=== PATIENT | female | born 1945 ===

== ENCOUNTER 2024-11-04 13:45 | Outpatient (REF) | payer MEDICARE, SELFPAY ==
--- NOTE | ~2024-11-04 | XR_ITS ---
EXAMINATION: X-ray lumbar spine 4 views. CLINICAL INFORMATION: Other secondary scoliosis. TECHNIQUE: 4 views lumbar spine. COMPARISON: None FINDINGS: Dextroconvex rotoscoliosis apex at L2-3. Multilevel marginal osteophyte formation and endplate sclerosis and decreased intervertebral disc height more conspicuous at L2-3 and to a lesser extent L3-4 level. 3 mm. Retrolisthesis L2-3 which persists during flexion and extension position. Vascular desiccation's. Stents at the region of the iliac arteries. XR/XR lumbar spine 4V min IMPRESSION: Multilevel lumbar spondylosis and dextroconvex rotoscoliosis more conspicuous at L2-3 and to a lesser extent L3-4 with grade 1 retrolisthesis L2-3 and no gross instability. Electronically signed by: Johnson Quesada MD 11/04/2024 03:16 PM EDT
--- OUTSIDE RECORDS SUMMARY | 2024-11-04 15:04 | XMS_ITS | Encounter Summary ---
Author Organization [facility] Address [address] [place] [address] Care Team Providers Care Music Agent Name Role Phone Kavita Farias MD Primary Care Provider [phone] Padmini Mariee MD Unavailable [phone] Petty Tavarez MD Unavailable [phone] Yvonne Estrella MD Unavailable [phone] Darlene Rivera Unavailable [phone] Petty Tavarez MD Unavailable [phone] Nehal Snowden PA-C Unavailable [phone] John Clark MD Unavailable [phone] Petty Tavarez MD Unavailable [phone] Reason for Visit * Reason Comments Medication Refill Encounter Details Date Type Department Care Team (Late st Contact Info) Description 08/09/2020 Refill [facility] [address] [place] [address] Yvonne Estrella MD [address] [place] [address] Chronic idiopathic constipation Social History Tobacco Use [...] Info) Description 05/16/2025 1:15 PM EDT Appointment [facility] Department of Ophthalmology [place] [address] [place] [address] 05/16/2025 1:15 PM EDT Appointment [facility] Department of Ophthalmology [place] [address] [place] [address] Arvin García [place] [address] [place] [address] documented as of this encounter Visit Diagnoses Diagnosis Chronic idiopathic constipation Unspecified constipation documented in this encounter Care Teams Music Agent Relationship Specialty Start Date End Date Kavita Farias MD [address] [place] [address] PCP - General 06/23/13 Nehal Snowden, PA-C [address] [address] PCP - [employer] Medicare Attributed 10/18/22 01/16/23 Padmini Mariee MD [address] [place] [address] Referring Provider Rheumatology 03/02/18 Petty Tavarez MD [address] [address] Surgery, Vascular 05/08/20 Yvonne Estrella MD [address] [place] [address] Physician Surgery, Colorectal 05/16/20 Darlene Rievra PA [address] [place] [address] 05/16/20 Petty Tavarez MD [address] [place] [address] Surgery, Vascular 05/16/20 05/28/21 John Clark MD [address] [place] [address] Resident Endocrinology 02/17/24 Petty Tavarez MD [address] [place] [address] Surgery, Vascular 02/17/24 documented as of this encounter
--- OUTSIDE RECORDS SUMMARY | 2024-11-04 15:05 | XMS_ITS | Encounter Summary ---
Author Organization [facility] Address [address] [place] [address] Care Team Providers Care Healthcare Educator Name Role Phone Kavita Farias MD Primary Care Provider [phone] Padmini Mariee MD Unavailable [phone] Petty Tavarez MD Unavailable [phone] Yvonne Estrella MD Unavailable [phone] Darlene Rivera Unavailable [phone] Nehal Snowden PA-C Unavailable [phone] John Clark MD Unavailable [phone] Petty Tavarez MD Unavailable [phone] Encounter Details Date Type Department Care Team (Late st Contact Info) Description 11/24/2022 Scanned Document [facility] Vascular & Endovascular Surgery [address] [place] [phone] Vascular Surgery, Scan Social History Tobacco Use [...] EDT Appointment [facility] Department of Ophthalmology [address] [address] 05/16/2025 1:15 PM EDT Appointment [facility] Department of Ophthalmology [address] [address] Arvin García MD [address] [place] [address] documented as of this encounter Visit Diagnoses Not on filedocumented in this encounter Care Teams Healthcare Educator Relationship Specialty Start Date End Date Kavita Farias MD [address] [place], [place] [id number] PCP - General 06/23/13 Nehal Snowden, PA-C [address] [place], [place] [id number] PCP - [employer] Medicare Attributed 10/18/22 01/16/23 Padmini Mariee MD [address] [place] [address] Referring Provider Rheumatology 03/02/18 Petty Tavarez MD [address] [place] [address] Surgery, Vascular 05/08/20 Yvonne Estrella MD [address] [place] [address] Physician Surgery, Colorectal 05/16/20 ZimDarlene dyson PA [address] [facility], [place] [address] 05/16/20 John Clark MD [address] [place] [address] Resident Endocrinology 02/17/24 Petty Tavarez MD [address] [place] [address] Surgery, Vascular 02/17/24 documented as of this encounter
--- OUTSIDE RECORDS SUMMARY | 2024-11-04 15:05 | XMS_ITS | Patient Health Record ---
Author Organization [facility] Address [address] [place] [address] Care Team Providers [employer] Sales Consultant Name Role Phone Dashawn Farias Primary Care Provider Padmini Mariee Unavailable [phone] Roney Eagle Unavailable [phone] Allergies Allergen (clinical drug ingredient) Drug/Non Drug Allergy documented on EMR Reaction Allergy Type Onset Date Status rosuvastatin Crestor HIgh LFTs Drug Allergy Acti ve Doxycycline (Rosacea) may be causing slate herrera discoloration Drug Allergy Active Mevacor high LFTs Drug Allergy Active carvedilol Carvedilol did not feel calm Drug Allergy Active ketoconazole Ketoconazole sever swelling Drug Allergy Active metoprolol Metoprolol Fatigue Drug Allergy Activ e Results Component Value Reference Range Notes PT INR ASSAY Reviewed date:09/04/2024 03:43:52 PM Interpretation: Performing Lab:[facility], [address] [place] [address], Phone - , Director - Rustam Frye MD Notes/Report: PROTHROMBIN TIME (PT) 13.3 9.5-12.3 SEC INR 1.2 0.8-1.2 INR Therapeutic range: 2.0-3.0 High Dose Therapy: 2.5-3.5 MRI LUMBAR SPINE W/O CONTRAS T Reviewed date:10/18/2024 11:37:42 AM Interpretation:see report Performing Lab: Notes/Report: [facility] [address] [place] [address] MRI/MRA REPORT : [id number] Patient: TRICIA HURTADO Order/ Date of : 1945 Ordering Provider: DASHAWN FARIAS MD Age/Gender: 79/F Medical Record: [id number] Reason for visit/admission: STENOSIS MULT LEVELS CPT code: 57179 DATE OF SERVICE: 10/10/2024 EXAM DESCRIPTION: MRI [...] GABRIELLE MADISON MD 10/10/24 1212 CC: DASHAWN FARIAS MD YQB=[id number] JBN=[id number] ORG=[facility] MES=[id number] MWQ=[id number] ORG=[facility] HFA=[id number] CBR=[id number] ORG=[facility] LAS=[id number] EFE=[id number] ORG=[address] [address] MRI/MRA REPORT : [id number] Patient: YAS HURTADO Order/ Date of : 08/18 Ordering Provider: DASHAWN FARIAS MD Age/Gender: 79/F Medical Record: [id number] Reason for visit/admission: STENOSIS MULT LEVELS CPT code: 49640 DATE OF SERVICE: 10/10/2024 EXAM DESCRIPTION: MRI [...] GABRIELLE MADISON MD 10/10/24 1212 CC: DASHAWN FARIAS MD QTI=[id number] EXQ=[id number] ORG=[facility] UXS=[id number] HBS=[id number] ORG=[facility] QUL=[id number] JVN=[id number] ORG=[facility] MCF=[id number] YLQ=[id number] ORG=[facility] PARATHYROID HORMONE INTACT,P L Reviewed date:12/28/2023 05:07:39 PM Interpretation: Performing Lab:[facility], [address] [place] [address], Phone - , Director - Rustam Frye MD Notes/Report: PARATHYROID HORMONE INTACT,PL 145.4 15.0-65.0 PG/ML COMP METABOL PANEL-NON FASTI NG Reviewed date:12/28/2023 05:07:34 PM Interpretation: Performing Lab:[facility], [address] [place] [address], [place] [address], Phone - , Director - Rustam Frye MD Notes/Report: GLUCOSE, RANDOM 111 70-139 MG/DL BLOOD UREA NITROGEN 20.0 6.0-20.0 MG/DL CREATININE 0.6 0.5-0.9 MG/DL EST. GLOMERULAR FILTRATION > 60 If patient is -Brazilian, multiply results by 1.21 Chronic Kidney Disease: <60 ml/min/1.73 square meters Kidney Failure: <15 ml/min.1.73 square meters BUN/CREATININE RATIO 33.3 SODIUM 140 136-145 MMOL/L POTASSIUM 3.7 3.5-4.9 MMOL/L CHLORIDE 101 98-107 MMOL/L CO2 27 22-29 MMOL/L ANION GAP 16 <=16 MMOL/L CALCIUM 10.8 8.8-10.2 MG/DL TOTAL PROTEIN 7.5 6.6-8.7 G/DL ALBUMIN 4.3 3.5-5.2 G/DL BILIRUBIN, TOTAL 0.4 0.3-1.2 MG/DL AST 52 6-32 U/L ALT 65 5-33 U/L ALKALINE PHOSPHATASE 51 35-105 U/L CALCIUM, 24HR URINE Reviewed date:12/23/2023 03:41:40 PM Interpretation: Performing Lab:[facility], [address] [facility] [place] [address], [place] [address], Phone - , Director - Rustam Frye MD Notes/Report: 24HR UCA VOLUME 2450 24HR URINE CALCIUM 290.4 100.0-300.0 MG/24 HR CREATININE, 24HR URINE Reviewed date:12/23/2023 03:41:40 PM Interpretation: Performing Lab:[facility], [address] [facility] [place] [address], Phone - , Director - Rustam Frye MD Notes/Report: 24HR UCR VOLUME 2450 URINE CREATININE 24HR 650.4 740.0-1570 .0 MG/24 HR NM PARATHYROID SCAN WITH SPE CT Reviewed date:12/01/2023 05:44:02 PM Interpretation: Performing Lab: Notes/Report: [facility] [address] [place] [address] NUCLEAR MEDICINE REPORT : [id number] Patient: TRICIA HURTADO Patient Location: [place] - Date of : 1945 Patient Status: REG I Age/Gender: 78/F Order/ Medical Record: [id number] Attending Provider: RONEY EAGLE MD Ordering Provider: RONEY EAGLE MD Dept: [facility] Reason for visit/admission: PRIMARY HYPERPARATHYROIDISM Patient location at time of order: Outpatient CPT code: 78391 External Order # (if applicable): DATE OF SERVICE: 12/01/2023 EXAM DESCRIPTION: NM PARATHYROID SCAN WITH SPECT CLINICAL INFORMATION: PRIMARY HYPERPARATHYROIDISM COMPARISON: THYROID - [facility] dated 03/09/2020; THYROID - [facility] dated 11/30/2018; THYROID - [facility] dated 06/02/2016 TECHNIQUE/FINDINGS: A nuclear medicine parathyroid scan is performed utilizing SPECT imaging with standard techniques. The patient was injected with 18.2 mCi of technetium 99 M sestamibi. Standard planar images were obtained at 15 min and 2.5 hr post injection with SPECT imaging performed on the delayed images. The examination shows normal distribution of the sestamibi on the initial images obtained 15 min post injection. On the images obtained 2.5 hr, there is a focus of residual activity in the left parasagittal neck, favor located adjacent to the inferior left thyroid lobe. No other suspicious focus of residual activity. IMPRESSION: Positive nuclear medicine parathyroid scan. A focus of activity in the region of the left lower thyroid lobe is consistent with parathyroid adenoma. Dictated by: SHELLI HANSON MD, 12/01/23 1440 Electronically signed by SHELLI HANSON MD 12/01/23 4830 CC: DASHAWN FARIAS MD; RONEY EAGLE MD NPF=[id number] KQZ=[id number] ORG=[facility] IVV=[id number] RYV=[id number] ORG=[facility] [address] [place] [address] NUCLEAR MEDICINE REP ORT : [id number] Patient: YAS HURTADO Patient Location: [place] - Date of : 08/18 Patient Status: REG CLI Age/Gender: 78/F Order/ Medical Record: [id number] Attending Provider: RONEY EAGLE MD 691 Ordering Provider: RONEY EAGLE MD Dept: [facility] Reason for visit/admission: PRIMARY HYPERPARATHYROIDISM Patient location at time of order: Outpatient CPT code: 48994 External Order # (if applicable): DATE OF SERVICE: 12/01/2023 EXAM DESCRIPTION: NM PARATHYROID SCAN WITH SPECT CLINICAL INFORMATION: PRIMARY HYPERPARATHYROIDISM COMPARISON: THYROID - [facility] cris ed 03/09/2020; THYROID - [facility] dated 11/30/2018; THYROID - [facility] dated 06/02/2016 TECHNIQUE/FINDINGS: A nuclear medicine parathyroid scan is performed utilizing SPECT imaging with standard techniques. The patient was inje cted with 18.2 mCi of technetium 99 M sestamibi. Standard planar images were obtained at 15 min a nd 2.5 hr post injection with SPECT imaging performed on the delayed images. The examination show s normal distribution of the sestamibi on the initial images obtained 15 min post injection. On t he images obtained 2.5 hr, there is a focus of residual activity in the left parasagittal neck, f avor located adjacent to the inferior left thyroid lobe. No other suspicious focus of residual activity. IMPRESSION: Positive nuclear med iciky parathyroid scan. A focus of activity in the region of the left lower thyroid lobe is cons istent with parathyroid adenoma. Dictated by: SHELLI HANSON MD, 12/01/23 1442 Electronically damien d by SHELLI HANSON MD 12/01/23 7472 CC: Andra RHOADES; RONEY EAGLE MD FJH=[id number] ING=[id number] ORG=[facility] WPO=[id number] XGE=[id number] ORG=[facility] PTT(APTT), PLASMA Reviewed date:09/04/2024 03:43:53 PM Interpretation: Performing Lab:[facility], [address] [place] [address], [place] [id number], Phone - , Director - Rustam Frye MD Notes/Report: PTT(APTT), PLASMA 36.1 24-43 SEC MICROALB/CREAT RATIO,RAN URI NE Reviewed date:09/04/2024 03:43:53 PM Interpretation: Performing Lab:[facility], [address] [place] [address], [place] [address], Phone - , Director - Rustam Frye MD Notes/Report: MICROALBUMIN,RANDOM URINE 2.12 0.60-1.70 MG/DL CREATININE,RANDOM URINE 136.7 28.0-217.0 MG/DL ALBUMIN/CREATININE RATIO 15.5 <20.0 MG/G LIPID PROFILE Reviewed date:09/04/2024 03:43:52 PM Interpretation: Performing Lab:[facility], [address] [place] [address], Phone - , Director - Rustam Frye MD Notes/Report: CHOLESTEROL 281 6-200 MG/DL Desirable 6-200 Borderline 201-239 High >=240 TRIGLYCERIDES 237 <150 MG/DL HIGH DENSITY LIPOPROTEIN (HDL) 65 >65 MG/DL Female Male No Risk >65 >55 Moderate Risk 45 - 65 35 - 55 High Risk <45 <35 LDL (CALCULATED) 169 50-130 MG/DL VLDL 47 10-31 MG/DL Calculated LDL: CHOLESTEROL-HDL-( TRIG/5) Calculated VLDL: TRIG/5 Calculations not performed for TRIG >=400. GAMMA GLUTAMYL TRANSFERASE Reviewed date:09/04/2024 03:43:52 PM Interpretation: Performing Lab:[facility], [address] [place] [address], Phone - , Director - Rustam Frye MD Notes/Report: GAMMA GLUTAMYL TRANSFERASE 41 5-36 U/L PT INR ASSAY Reviewed date:03/14/2024 09:51:07 AM Interpretation: Performing Lab:[facility], [address] [place] [address], Phone - , Director - Rustam Frye MD Notes/Report: PROTHROMBIN TIME (PT) 13.0 10.0-13.2 SEC INR 1.1 0.8-1.2 INR Therapeutic range: 2.0-3.0 High Dose Therapy: 2.5-3.5 NM LIVER/SPLEEN SCAN STATIC Reviewed date:09/23/2024 03:03:57 PM Interpretation:normal Performing Lab: Notes/Report: [facility] [address] [place] [address] NUCLEAR MEDICINE REPORT : [id number] Patient: TRICIA HURTADO Patient Location: [place] - Date of : 1945 Patient Status: [facility] Age/Gender: 79/F Order/ Medical Record: [id number] Attending Provider: DASHAWN FARIAS MD Ordering Provider: DASHAWN FARIAS MD Dept: [facility] Reason for visit/admission: HEPATITIS Patient location at time of order: Outpatient CPT code: 87636 External Order # (if applicable): DATE OF SERVICE: 09/22/2024 EXAM DESCRIPTION: NM LIVER/SPLEEN SCAN STATIC CLINICAL INFORMATION: HEPATITIS TECHNIQUE: Nuclear medicine liver spleen scan was performed. 6.7 mCi (247.9 MBQ) of technetium 99 M labeled sulfur colloid was administered intravenously in the left antecubital region. Planar images were obtained approximately 20 minutes post injection. FINDINGS: The examination demonstrates normal uptake of activity within the liver. The liver does not appear enlarged. The uptake within the liver appears homogeneous. No discrete abnormalities are seen involving the liver. There is normal uptake seen within the spleen. There is no evidence for colloid shift. No abnormalities are seen. IMPRESSION: Normal liver spleen scan. Dictated by: GABRIELLE MADISON MD, 09/22/24 1215 Electronically signed by GABRIELLE MADISON MD 09/22/24 1231 CC: DASHAWN FARIAS MD JJB=[id number] QHS=[id number] ORG=[facility] CJB=[id number] EFJ=[id number] ORG=[facility] [address] [place], [place] [address] NUCLEAR MEDICINE REP ORT : [phone] Patient: YAS HURTADO Patient Location: [place] - Date of : 08/18 Patient Status: [facility] Age/Gender: 79/F Order/ Medical Record: [id number] Attending Provider: DASHAWN FARIAS MD 366 Ordering Provider: DASHAWN FARIAS MD Dept: [facility] Reason for visit/admission: HEPATITIS Patient location at time of order: Outpatient CPT code: 20970 External Order # (if applicable): DATE OF SERVICE: 09/22/2024 EXAM DESCRIPTION: NM LIVER/SPLEEN SCAN STATIC CLINICAL INFORMATION: HEPATITIS TECHNIQUE: Nuclear medicine edwardo er spleen scan was performed. 6.7 mCi (247.9 MBQ) of technetium 99 M labeled sulfur colloid was administered intravenously in the left antecubital region. Planar images were obtained approximate ly 20 minutes post injection. FINDINGS: The examination demonstrates normal uptake of activity within the liver. The liver does not appear enlarged. The uptake within the liver appears homogeneous. No discrete abnormalities are seen involving the liver. There is normal uptake seen within the spleen. There is no evidence for colloid shift. No abnormalities are seen. IMPRESSION: Normal liver spleen scan. Dictated by: GABRIELLE MADISON MD, 09/22/24 1215 Electronically damien d by GABRIELLE MADISON MD 09/22/24 1231 CC: DASHAWN FARIAS MD ZIY=[id number] QIT=[id number] ORG=[facility] JLI=[id number] DIC=[id number] ORG=[facility] PTT(APTT), PLASMA Reviewed date:03/14/2024 09:51:07 AM Interpretation: Performing Lab:[facility], [address] [facility] [place] [address], [place] [address], Phone - , Director - Rustam Frye MD Notes/Report: PTT(APTT), PLASMA 33.9 24-43 SEC MAGNESIUM Reviewed date:03/14/2024 09:51:07 AM Interpretation: Performing Lab:[facility], [address] [facility] [place] [address], [place] [address], Phone - , Director - Rustam Frye MD Notes/Report: MAGNESIUM 1.8 1.6-2.6 MG/DL COMP METABOL PANEL-NON FASTI NG Reviewed date:03/14/2024 09:51:07 AM Interpretation: Performing Lab:[facility], [address] [facility] [place] [address], Phone - , Director - Rustam Frye MD Notes/Report: GLUCOSE, RANDOM 114 70-139 MG/DL BLOOD UREA NITROGEN 15.0 6.0-20.0 MG/DL CREATININE 0.6 0.5-0.9 MG/DL EST. GLOMERULAR FILTRATION > 60 If patient is -Brazilian, multiply results by 1.21 Chronic Kidney Disease: <60 ml/min/1.73 square meters Kidney Failure: <15 ml/min.1.73 square meters BUN/CREATININE RATIO 25.0 SODIUM 142 136-145 MMOL/L POTASSIUM 3.3 3.5-4.9 MMOL/L CHLORIDE 108 98-107 MMOL/L CO2 22 22-29 MMOL/L ANION GAP 15 <=16 MMOL/L CALCIUM 10.7 8.8-10.2 MG/DL TOTAL PROTEIN 7.5 6.6-8.7 G/DL ALBUMIN 4.3 3.5-5.2 G/DL BILIRUBIN, TOTAL 0.4 0.3-1.2 MG/DL AST 38 6-32 U/L ALT 47 5-33 U/L ALKALINE PHOSPHATASE 53 35-105 U/L CBC Reviewed date:03/14/2024 09:51:06 AM Interpretation: Performing Lab:[facility], [address] [place] [address], Phone - , Director - Rustam Frye MD Notes/Report: WBC 9.7 4.0-10.5 K/UL RBC 4.61 4.2-5.4 M/UL HEMOGLOBIN 14.9 12.5-16.0 GM/DL HEMATOCRIT 44.0 37-47 % MCV 95.4 78-100 FL MCH 32.3 27-31 PG MCHC 33.9 32-36 GM/DL PLATELET COUNT 227 150-450 K/UL MEAN PLATELET VOLUME 10.9 8.8-13.6 fL RDW 13.1 11.5-14.5 % EKG Electrocardiogram Reviewed date:03/01/2024 06:46:18 AM Interpretation: Performing Lab: Notes/Report: ECGPWaveAxis 36 ECGPWaveAxis 1 ECGQrsWaveAxis -14 ECGQrsWaveAxis 1 ECGTWaveAxis -1 ECGTWaveAxis 1 PHOSPHOROUS Reviewed date:12/01/2023 05:44:02 PM Interpretation: Performing Lab:[facility], [address] [facility] [place] [address], Phone - , Director - Rustam Frye MD Notes/Report: PHOSPHORUS 2.4 2.5-4.5 MG/DL COMP. METABOLIC PANEL FAST Reviewed date:12/01/2023 05:44:02 PM Interpretation: Performing Lab:[facility], [address] [facility] [place] [address], Phone - , Director - Rustam Frye MD Notes/Report: GLUCOSE, FASTING 101 74-106 MG/DL BLOOD UREA NITROGEN 23.0 6.0-20.0 MG/DL CREATININE 0.6 0.5-0.9 MG/DL EST. GLOMERULAR FILTRATION > 60 If patient is -Brazilian, multiply results by 1.21 Chronic Kidney Disease: <60 ml/min/1.73 square meters Kidney Failure: <15 ml/min.1.73 square meters BUN/CREATININE RATIO 38.3 SODIUM 143 136-145 MMOL/L POTASSIUM 3.0 3.5-4.9 MMOL/L CHLORIDE 105 98-107 MMOL/L CO2 26 22-29 MMOL/L ANION GAP 15 <=16 MMOL/L CALCIUM 11.4 8.8-10.2 MG/DL TOTAL PROTEIN 8.0 6.6-8.7 G/DL ALBUMIN 4.5 3.5-5.2 G/DL BILIRUBIN, TOTAL 0.5 0.3-1.2 MG/DL AST 53 6-32 U/L ALT 79 5-33 U/L ALKALINE PHOSPHATASE 52 35-105 U/L VITAMIN D 25 HYDROXY Reviewed date:12/01/2023 05:44:02 PM Interpretation: Performing Lab:[facility], [address] [place] [address], [place] [address], Phone - , Director - Rustam Frye MD Notes/Report: VITAMIN D 25 HYDROXY 40 30-100 NG/ML Vitamin D Status Reference Range -- - Deficiency < 10 ng/mL Insufficiency 10-29 ng/mL Sufficiency 30-100 ng/mL Toxicity >100 ng/mL TSH SENSITIVE Reviewed date:04/18/2024 03:36:04 PM Interpretation: Performing Lab:[facility], [address] [place] [address], Phone - , Director - Rustam Frye MD Notes/Report: TSH SENSITIVE 1.880 0.270-4.200 mIU/L COMP. METABOLIC PANEL FAST Reviewed date:04/18/2024 03:36:04 PM Interpretation: Performing Lab:[facility], [address] [facility] [place] [address], Phone - , - Rustam Frye MD Notes/Report: GLUCOSE, FASTING 114 74-106 MG/DL BLOOD UREA NITROGEN 12.0 6.0-20.0 MG/DL CREATININE 0.8 0.5-0.9 MG/DL EST. GLOMERULAR FILTRATION > 60 If patient is -Brazilian, multiply results by 1.21 Chronic Kidney Disease: <60 ml/min/1.73 square meters Kidney Failure: <15 ml/min.1.73 square meters BUN/CREATININE RATIO 15.0 SODIUM 140 136-145 MMOL/L POTASSIUM 3.7 3.5-4.9 MMOL/L CHLORIDE 103 98-107 MMOL/L CO2 27 22-29 MMOL/L ANION GAP 14 <=16 MMOL/L CALCIUM 9.0 8.8-10.2 MG/DL TOTAL PROTEIN 7.4 6.6-8.7 G/DL ALBUMIN 4.1 3.5-5.2 G/DL BILIRUBIN, TOTAL 0.4 0.3-1.2 MG/DL AST 33 6-32 U/L ALT 34 5-33 U/L ALKALINE PHOSPHATASE 51 35-105 U/L PARATHYROID HORMONE INTACT,P L Reviewed date:04/18/2024 03:36:03 PM Interpretation: Performing Lab:[facility], [address] [place] [address], Phone - , Director - Rustam Frye MD Notes/Report: PARATHYROID HORMONE INTACT,PL 66.3 15.0-65.0 PG/ML FREE THYROXIN (FREE T4) Reviewed date:04/19/2024 09:59:06 AM Interpretation: Performing Lab:[facility], [address] [place] [address], [place] [address], Phone - , Director - Rustam Frye MD Notes/Report: FREE THYROXIN (FREE T4) 1.3 0.9-1.7 NG/DL DEXA AXIAL SKELETON Reviewed date:09/15/2024 09:23:21 AM Interpretation: Performing Lab: Notes/Report: [facility] [address] [place] [address] BONE DENSITOMETRY REPORT : [id number] Patient: TRICIA HURTADO Order/ Date of : 1945 Ordering Provider: RONEY EAGLE MD Age/Gender: 79/F Medical Record: [id number] Reason for visit/admission: HYPERPARATHYROIDISM CPT code: 32412 DATE OF SERVICE: 09/13/2024 EXAM DESCRIPTION: DEXA AXIAL SKELETON CLINICAL INFORMATION: HYPERPARATHYROIDISM COMPARISON: 2022 FINDINGS: Left forearm (radius 33%): BMD: 0.538 g/cm2 T-score: -2.4 This is increased by approximately 5% Left Hip(neck): BMD: 0.820 g/cm2 T-score: -1.6 This is not significantly changed from prior. World Health Organization criteria for BMD impression classify patients as Normal (T-score at or above -1.0), Osteopenia (T-score between -1.0 and -2.5), or Osteoporosis (T- score at or below -2.5). FRAX? WHO Fracture Risk Assessment Tool 10 year Fracture Risk: Major Osteoporotic Fracture: 17% Hip Fracture: 4.6% IMPRESSION: 1. Left forearm: Osteopenia, mildly improved since 2022 2. Left hip: Osteopenia, unchanged Please refer to the computer generated report for additional information regarding fracture risk and bone density evaluation. Dictated by: JARAD WILBURN MD, 09/13/24 1451 Electronically signed by MAY WILBURN MD 09/13/24 1452 CC: RONEY EAGLE MD AQJ=[id number] [id number] ORG=[facility] CHO=[id number] TKV=[id number] ORG=[place] [address] BONE DENSITOMETRY RE PORT : [id number] Patient: YAS HURTADO Order/ Date of : 08/18 Ordering Provider: RONEY EAGLE MD Age/Gender: 79/F Medical Record: [id number] Reason for visit/admission: HYPERPARATHYROIDISM CPT code: 87413 DATE OF SERVICE: 09/13/2024 EXAM DESCRIPTION: DEXA AXIAL SKELETON CLINICAL INFORMATION: HYPERPARATHYROIDISM COMPARISON: 2022 FINDINGS: Left forearm (radius 33%): BMD: 0.538 g/cm2 T-s core: -2.4 This is increased by approximately 5% Left Hip(neck): BMD: 0.820 g/cm2 T-s core: -1.6 This is not signific antly changed from prior. World Health Organiz ation criteria for BMD impression classify patients as Normal (T-score at or above -1.0), Osteope jan (T-score between -1.0 and -2.5), or Osteoporosis (T-score at or below -2.5). FRAX? WHO Fracture R isk Assessment Tool 10 year Fracture Risk: Major Osteoporotic Fracture: 17% Hip Fracture: 4.6% IMPRESSION: 1. Left forearm: Osteopenia, mildly improved since 2022 2. Left hip: Osteope jan, unchanged Please refer to the computer generated report for additional information regarding fracture risk and bone density evaluation. Dictated by: JARAD WILBURN MD, 09/13/241450 Electronically damien d by MAY WIBLURN MD 09/13/241451 CC: RONEY EAGLE MD PUY=[id number] KLU=[id number] ORG=[facility] JEX=[id number] CPW=[id number] ORG=[facility] COMP. METABOLIC PANEL FAST Reviewed date:07/25/2024 04:58:48 PM Interpretation: Performing Lab:[facility], [address] [facility] [place] [address], Phone - , Director - Rustam Frye MD Notes/Report: GLUCOSE, FASTING 106 74-106 MG/DL BLOOD UREA NITROGEN 14.0 6.0-20.0 MG/DL CREATININE 0.6 0.5-0.9 MG/DL EST. GLOMERULAR FILTRATION 91 Estimated GFR calculated using the 2020 CKD-EPI Creatinine Equation. In adults, the normal eGFR number is usually more than 90. eGFR declines with age, even in people without kidney disease. See chart below for average estimated eGFR based on age. Age (years) Average eGFR 20-29 116 30-39 107 40-49 99 50-59 93 60-69 85 70+ 75 BUN/CREATININE RATIO 23.3 SODIUM 136 136-145 MMOL/L POTASSIUM 3.9 3.5-4.9 MMOL/L CHLORIDE 99 98-107 MMOL/L CO2 24 22-29 MMOL/L ANION GAP 17 <=16 MMOL/L CALCIUM 9.5 8.8-10.2 MG/DL TOTAL PROTEIN 7.7 6.6-8.7 G/DL ALBUMIN 4.5 3.5-5.2 G/DL BILIRUBIN, TOTAL 0.5 0.3-1.2 MG/DL AST 41 6-32 U/L ALT 43 5-33 U/L ALKALINE PHOSPHATASE 50 35-105 U/L PARATHYROID HORMONE INTACT,P L Reviewed date:07/25/2024 04:58:48 PM Interpretation: Performing Lab:[facility], [address], [place] [address], Phone - , Director - Rustam Frye MD Notes/Report: PARATHYROID HORMONE INTACT,PL 62.8 15.0-65.0 PG/ML VITAMIN D 25 HYDROXY Reviewed date:08/17/2024 03:45:50 PM Interpretation: Performing Lab:[facility], [address], [place] [address], [place] [address], Phone - , Director - Rustam Frye MD Notes/Report: VITAMIN D 25 HYDROXY 39 30-100 NG/ML Vitamin D Status Reference Range -- - Deficiency < 10 ng/mL Insufficiency 10-29 ng/mL Sufficiency 30-100 ng/mL Toxicity >100 ng/mL Reason For Referral Reason 11/17/23-would like s micaela surgery for spinal stenosis , surgeon will not consider it unless the hyperparathyroidism is under control , she has declined surgery Referral Organization [facility] Referring Provider First Name Dashawn Referring Provider Last Name Dinora Referring Provider Speciality Internal M edicine Referred Organization - Endocrinology Referred Provider Roney Eagle Referred Address [address],[place], [place],[address], Referred Provider Specialty Endocrinolog y General Notes Rebecca Saeed 09:58:00 AM >hpth, i see pt has appt 11/17/23 Referral Priority Routine Referral Appointment Date 11/17/2023 Reason Pt with primary hype rparathyroidism, osteoporosis and L lower parathyroid adenoma on Sestamibi. Referral for eval for parathyroidectomy Diagnosis 1 Primary hyperparathy roidism (E21.0) Referral Organization - Endocrinology Referring Provider First Name Roney Referring Provider Last Name Eduardo Referring Provider Speciality Endocrinol ogje Referred Provider Irina Messer Referred Provider Specialty Surgical Onc ology General Notes WangJayna santosica 10:17:18 AM >REFERRAL FAXED AND PRINT OUT GIVEN TO PT Referral Priority Routine Medications Medication SIG (Take, Route, Frequency, Duration) Notes Start Date End Date Status hydrALAZINE HCl 10 MG TAKE ONE (1) TABLE T BY MOUTH THREE TIMES A DAY WITH FOOD for 30 Active Doxycycline Hyclate 100 MG 1 capsule Ora lly every 2 days Active Xarelto 10 MG 1 tablet with food Orally Once a day 05/07/2020 Active Ciclopirox 0.77 % 1 application Externally Twice a day Active Vitamin E Active Benzonatate 100 MG TAKE ONE (1) CAPSULE BY MOUTH THREE TIMES A DAY NEEDED for 15 Active Vitamin D3 125 MCG (5000 UT) 1 capsule O rally Once a day for 30 days Active Benadryl Active Triamcinolone Acetonide 0.1 % 1 applicat ion Externally Two times a Week Active Ammonium Lactate 12 % 1 application Externally Twice a day Active Systane 0.4-0.3 % as directed Ophthalmic Active Multivitamin - 1 tablet Orally Once a day for 30 day(s) Active Losartan Potassium-HCTZ 100-12.5 MG TAKE ONE (1) TABLET BY MOUTH DAILY for 90 Active Levothyroxine Sodium 112 MCG 1 tablet in the morning on an empty stomach Orally Once a day for 90 days Active Furosemide 20 MG 1 tablet may repeat x 1 if significant edema for 90 days Active Hydroxychloroquine Sulfate 2 00 MG TAKE ONE TABLET BY MOUTH TWICE DAILY Orally Twice a day for 90 days Active Immunizations Vaccine Route Administration Date Status Comme nts Tdap (Billable) IM Intramuscular 11/28/2014 Administered Influenza - High Dose IM Intramuscular 04/07/2023 Administ ered Covid 19 Pfizer Vaccine .3 mL Dose Unknown 09/10/2020 Administered Social History Tobacco Use: Social History Observation Description Date Details (start date - stop date) Never Smoker NA - NA Sex Assigned At : Social History Observation Description Sex Assigned At Female Tobacco Use/Smoking Question Answer Notes Status: nonsmoker Alcohol Screen Question Answer Notes Did you have a drink contain ing alcohol in the past year? Yes How often did you have a dri nk containing alcohol in the past year? 2 to 3 times a week (3 points) How many drinks did you have on a typical day when you were drinking in the past year? 1 or 2 drinks (0 point) How often did you have 6 or more drinks on one occasion in the past year? Never (0 point) Points 3 Interpretation Positive AUDIT-C (Standard) Question Answer Notes Did you have a drink contain ing alcohol in the past year? Yes How often did you have six o r more drinks on one occasion in the past year? 2 to 4 times a month (2 points) How many drinks did you have on a typical day when you were drinking in the past year? 1 or 2 drinks (0 point) How often did you have a dri nk containing alcohol in the past year? 2 to 4 times a month (2 points) Points 4 Interpretation Positive Section Notes: some 2nd hand smoke from mot her and iydpge-jv-nii some 2nd hand smoke from mot her and efzrut-ob-lji some 2nd hand smoke from mot her and pcqjgx-yz-mcj some 2nd hand smoke from mot her and qzhrys-ux-gej some 2nd hand smoke from mot her and ebaalz-lb-hyw some 2nd hand smoke from mot her and thwacq-ba-gas some 2nd hand smoke from mot her and amrjjz-bs-rjd some 2nd hand smoke from mot her and ghuqmo-df-pge some 2nd hand smoke from mot her and abrokm-xd-hyw some 2nd hand smoke from mot her and qzzvmg-tj-qbd some 2nd hand smoke from mot her and mdqwrx-sm-eij some 2nd hand smoke from mot her and smfite-zn-fse some 2nd hand smoke from mot her and penxya-fh-xxi some 2nd hand smoke from mot her and sgwkir-yp-bbh Maxx some 2nd hand smoke from mot her and gedmbn-vw-aaa some 2nd hand smoke from mot her and imlxkk-wh-iru some 2nd hand smoke from mot her and vxyybw-zp-jwv some 2nd hand smoke from mot her and iamfrb-bm-zqj some 2nd hand smoke from mot her and bztotf-nf-vql some 2nd hand smoke from mot her and dldzwy-uz-xbb some 2nd hand smoke from mot her and onsfjh-dw-kqi some 2nd hand smoke from mot her and jysndd-dg-oun some 2nd hand smoke from mot her and rwrqyn-cp-vfw some 2nd hand smoke from mot her and pzfjtq-hn-zlb some 2nd hand smoke from mot her and ywzhnb-vb-tpr some 2nd hand smoke from mot her and taucdq-kc-cyu some 2nd hand smoke from mot her and qsprre-dv-hqu some 2nd hand smoke from mot her and jojzea-su-ytf some 2nd hand smoke from mot her and yvgeyg-uk-xxy some 2nd hand smoke from mot her and nqhsul-xq-ydl some 2nd hand smoke from mot her and gestdr-yn-kpf some 2nd hand smoke from mot her and bhssai-dl-otl some 2nd hand smoke from mot her and jvzgom-zo-avi some 2nd hand smoke from mot her and wbnzob-hj-obg some 2nd hand smoke from mot her and zocswf-yc-luc some 2nd hand smoke from mot her and nkgnbf-nv-via some 2nd hand smoke from mot her and vnupfe-jr-oug some 2nd hand smoke from mot her and xxrodm-hk-nuj some 2nd hand smoke from mot her and kwqpnt-rj-dsw some 2nd hand smoke from mot her and nnwemy-nk-nxp some 2nd hand smoke from mot her and qfkjop-ql-obz some 2nd hand smoke from mot her and repehx-vk-qev some 2nd hand smoke from mot her and dnakuc-px-joa some 2nd hand smoke from mot her and zhshsp-vw-ftw some 2nd hand smoke from mot her and teineb-ql-ddv some 2nd hand smoke from mot her and setyxk-yz-eyy some 2nd hand smoke from mot her and tnvrre-nz-una some 2nd hand smoke from mot her and lpiicq-ca-ztg some 2nd hand smoke from mot her and lkootx-hx-him some 2nd hand smoke from mot her and ciwtng-kz-mge some 2nd hand smoke from mot her and ezzfle-te-myx some 2nd hand smoke from mot her and zdxbzn-yd-arb some 2nd hand smoke from mot her and dpeizd-iz-fms some 2nd hand smoke from mot her and ngihla-zg-gya some 2nd hand smoke from mot her and hkrmlp-tt-axx some 2nd hand smoke from mot her and fkdsnp-md-stg some 2nd hand smoke from mot her and qxiuwl-ns-zhz some 2nd hand smoke from mot her and uhvrki-uc-pri some 2nd hand smoke from mot her and zogbry-ng-akd some 2nd hand smoke from mot her and smcsoa-ww-iam some 2nd hand smoke from mot her and onxkvs-ph-ydg some 2nd hand smoke from mot her and wiwhco-ir-ive some 2nd hand smoke from mot her and qddcei-qu-hok some 2nd hand smoke from mot her and tyddhv-pn-yhw some 2nd hand smoke from mot her and pykkfy-qx-npf some 2nd hand smoke from mot her and ghrwec-zl-xvr some 2nd hand smoke from mot her and azmaux-tp-vjk some 2nd hand smoke from mot her and kysswx-wd-pqk some 2nd hand smoke from mot her and erzkql-mm-zjm some 2nd hand smoke from mot her and xnuosg-vq-ojc some 2nd hand smoke from mot her and vfeefe-la-hjk some 2nd hand smoke from mot her and tjmuvz-nv-jcn some 2nd hand smoke from mot her and mqmthf-tt-lya some 2nd hand smoke from mot her and bqnnym-qy-bjz some 2nd hand smoke from mot her and xvvezl-ui-haz some 2nd hand smoke from mot her and ijxjzi-bv-tfp some 2nd hand smoke from mot her and avaazv-wc-gvy some 2nd hand smoke from mot her and azkemr-gw-ohh some 2nd hand smoke from mot her and aujprh-bd-jly some 2nd hand smoke from mot her and iayuos-mi-tne some 2nd hand smoke from mot her and rmxolg-tz-rbs some 2nd hand smoke from mot her and jxynls-or-fll some 2nd hand smoke from mot her and masyln-el-djb Maxx Problems Problem Type SNOMED Code ICD Code Onset Dates Problem Status W/U Status Risk Notes Problem Hyperlipidemia (95751807) Hyperlipidemia (E78.5) Active confirmed Problem Hypertension (71216778) Hypertension (I10) Active confirmed Problem 645836925 Edema (R60.9) Active confirmed Problem 096734091 Insomnia (G47.00) Active confirmed Problem 79573614 Vitamin D deficiency (E55.9) Active confirmed Problem 94064311 Cough (R05) Active confirmed Problem Fatigue (56870545) Fatigue (R53.83) Active conf irmed Problem 512530723 Shortness of breath (R06.02) Active confirmed Problem 1741708 Psoriasis (L40.9) Active confirmed Problem Osteoporosis (67882130) Osteoporosis (M81.0) Active confirmed Problem 222838661 Thyroid nodule (E04.1) Active confirmed Problem Acute upper respiratory infection (10693679) Acute upper respiratory infection (J06.9) Active confirmed Problem Hypercalcemia (10645617) Hypercalcemia (E83.52) Active confirmed Problem 77798934 Anxiety (F41.9) Active confirmed Problem Osteopenia (196410524) Osteopenia (M85.80) Active confirmed Problem 347580498 Peripheral vascular disease (I73.9) Active confirmed Problem 058766508 Fatty liver (K76.0) Active confirmed Problem 443757840 Breast cancer screening (Z12.39) Active confirmed Problem Right bundle branch block (53393480) RBBB (I45.10) Active confirmed Problem Hyperparathyroidism (58991639) Hyperparathyroidis m (E21.3) Active confirmed Problem 416234370 Cellulitis of lower leg (L03.119) Active confirmed Problem 714193014 Increased liver enzymes (R74.8) Active confirmed Problem Spinal stenosis (14162265) Spinal stenosis (M48.00) Active confirmed Problem 07673794 Primary hyperparathyroidis m (E21.0) Active confirmed Problem Urine incontinence (343790922) Urine incontinence (R32) Active confirmed Problem 994716734 Plantar fasciiti s (M72.2) Active confirmed Problem Hypokalemia (20188925) Hypokalemia (E87.6) Active confirmed Problem Rosacea (671057834) Rosacea (L71.9) Active conf irmed Problem 508415451 Lymphedema (I89.0) Active confirmed Problem 186456381 Abnormal EKG (R94.31) Active confirmed Problem 913902638 Tubular adenoma of colon (D12.6) Active confirmed Problem Arthropathy (402775440) Hand arthritis (M12.9) Active confirmed Problem 37116311 RBBB (right bund le branch block with left anterior fascicular block) (I45.2) Active confirmed Problem 353098889 Lateral epicondylitis (M77.10) Active confirmed Problem 415274660 Chronic pain syndrome (G89.4) Active confirmed Problem 231442358 Actinic keratose s (L57.0) Active confirmed Problem 53588579 Varicose vein of leg (I83.93) Active confirmed Problem 9442528 Sinus problem (J34.9) Active confirmed Problem Family history of lung cancer (197371499) Family history of lung cancer (Z80.1) Active confirmed Problem Hepatitis (508638122) Hepatitis (K75.9) Active confirmed Problem Chronic neck pain (7774314447465) Chronic neck pain (M54.2) Active confirmed Problem Abnormal glucose level (961785568) Glucose intolerance (pre-diabetes) (R73.09) Active confirmed Problem 49615181 Varicose veins o f both legs with edema (I83.893) Active confirmed Problem Cyst of thyroid (10577572) Thyroid cyst (E04.1) Active confirmed Problem 57131680 Pes planus of le ft foot (M21.42) Active confirmed Problem 17299162 Pes planus of right foot (M21.41) Active confirmed Problem 307848866 History of shingles (Z86.19) Active confirmed Problem Family history of bladder cancer (301220574) Family history of bladder cancer (Z80.52) Active confirmed Problem Disorder of soft tissue (24810788) Swelling of left lower extremity (M79.89) Active confirmed Problem Lymphedema (657270697) Lymphedema of both lower extremities (I89.0) Active confirmed Problem 37516295 Polyarthritis (M13.0) Active confirmed Problem 92161619 Swelling (R60.9) Active confirmed Problem 60491924 DJD (degenerativ e joint disease), cervical (M50.30) Active confirmed Problem Hypertensive disorder (81635686) Chronic hypertension (I10) Active confirmed Problem 286160556 Environmental allergies (Z91.09) Active confirmed Problem Hypothyroidism (89405012) Adult hypothyroidism (E03.9) Active confirmed Problem Counseling (078885444) Advanced directives, counseling/discuss ion (Z71.89) Active confirmed Problem Spinal stenosis of lumbar region (98197080) Spinal stenosis, lumbosacral region (M48.07) Active confirmed Problem 053596895 Encounter for general adult medical examination without abnormal findings (Z00.00) Active confirmed Problem 051183676 Encounter for screening for other viral diseases (Z11.59) Active confirmed Problem 76718259 Lumbar degenerative disc disease (M51.36) Active confirmed Problem 187307979 History of Dominguez' s palsy (Z86.69) Active confirmed Problem 236218216 History of rotat or cuff strain (Z87.828) Active confirmed Problem 425021317 Mixed hyperlipidemia (E78.2) Active confirmed Problem 139672486 History of eczem a (Z87.2) Active confirmed Problem 385832624 DJD (degenerativ e joint disease), multiple sites (M15.9) Active confirmed Problem Hypercalcemia (82434550) History of hypercalcemia (Z86.39) Active confirmed Problem 89151423 Constipation, unspecified constipation type (K59.00) Active confirmed Problem 663144451 DJD (degenerativ e joint disease), lumbar (M47.816) Active confirmed Problem 143743979 History of anal fissures (Z87.19) Active confirmed Problem 148844963 Cerebrovascular accident (CVA) due to thrombosis of cerebral artery (I63.30) Active confirmed Problem 83901909 Heel spur, left (M77.32) Active confirmed Problem 044429444 Cellulitis of right lower extremity (L03.115) Active confirmed Problem 393946812 Osteoarthritis o f multiple joints, unspecified osteoarthritis type (M15.9) Active confirmed Problem 01878736 Heel spur, right (M77.31) Active confirmed Problem 91371356 Hemorrhoids, external (K64.4) Active confirmed Problem 057184485 Primary osteoarthritis of both hips (M16.0) Active confirmed Problem 633268162 Hemiparesis, rig ht (G81.91) Active confirmed Problem Antalgic gait (18100537) Antalgic gait (R26.89) Active confirmed Problem 833808617 Wound of left lower extremity, subsequent encounter (S81.802D) Active confirmed Problem 031041880 Osteopenia of multiple sites (M85.89) Active confirmed Problem 698469553 Postmenopausal osteoporosis (M81.0) Active confirmed Problem 691397790 History of mycoplasma pneumonia (Z87.01) Active confirmed Problem Mammographic breast density (422934607) Dense breast tissue on mammogram (R92.2) Active confirmed Problem mammogram - screening (23848662) Screening mammogram, encounter for (Z12.31) Active confirmed Problem Disorder of soft tissue (41543865) Swelling of right lower extremity (M79.89) Active confirmed Problem 359284862 BMI 28.0-28.9,adult (Z68.28) Active confirmed Problem 217867835 BMI 29.0-29.9,adult (Z68.29) Active confirmed Problem Essential hypertension (28493974) Elevated blood pressure reading in office with diagnosis of hypertension (I10) Active confirmed Problem 063242010 Hand arthritis (M19.049) Active confirmed Problem 89933869 Stasis dermatiti s of both legs (I87.2) Active confirmed Problem 89899610 Sjogrens syndrom e, with unspecified organ involvement (M35.00) Active confirmed Problem 186785625 Shoulder arthrit is (M19.019) Active confirmed Problem 821865933 Laceration of right lower extremity, initial encounter (S81.811A) Active confirmed Problem 300225461 Allergic reactio n to drug, initial encounter (T78.40XA) Active confirmed Problem 46789950 Spinal stenosis at L4-L5 level (M48.061) Active confirmed Problem Spinal stenosis of lumbar region (68992457) Spinal stenosis of lumbar region at multiple levels (M48.061) Active confirmed Problem 58622500 Open wound of le ft lower extremity, subsequent encounter (S81.802D) Active confirmed Problem Elective surgery (441537625) Surgery, elective (Z41.9) Active confirmed Problem 32427159 Sjogren's syndrome, with unspecified organ involvement (M35.00) Active confirmed Problem 63204662 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) Active confirmed Problem Vaccination declined (situation) (1804042069) Immunization declined (Z28.21) Active confirmed Problem Lumbar pain (753161371) Lumbar pain (M54.50) Active confirmed Problem Herpes zoster without complication (947001648) Herpes zoster without mention of complication (053.9) Inactive confirmed Problem Hypothyroidism (42385758) Unspecified hypothyroidism (244.9) Inactive confirmed Problem Mixed hyperlipidemia (606788145) Mixed hyperlipidemia (272.2) Inactive confirmed Problem Disorder of fluid AND/OR electrolyte (60759315) Electrolyte and fluid disorders not elsewhere classified (276.9) Inactive confirmed Problem Varicose veins of lower extremity (37979577) Varicose veins of the lower extremities with other complications (454.8) Inactive confirmed Problem External hemorrhoids without complication (54733036) External hemorrhoids without mention of complication (455.3) Inactive confirmed Problem Pneumonia due to Mycoplasma pneumoniae (01597213) Pneumonia due to Mycoplasma pneumoniae (483.0) Inactive confirmed Problem Chronic persistent hepatitis (29845242) Chronic persistent hepatitis (571.41) Inactive confirmed Problem Chronic nonalcoholic liver disease (55312155) Other chronic nonalcoholic liver disease (571.8) Inactive confirmed Problem Tibialis tendinitis (23452194) Tibialis tendinitis (726.72) Inactive confirmed Problem Actinic keratosis (949332204) Actinic keratosis (702.0) Inactive confirmed Problem Osteochondropathy (80871390) Osteopenia, Disorder of bone and cartilage, unspecified (733.90) Inactive confirmed Problem Flat foot (50798234) Flat foot (734) Inactive co nfirmed Problem Edema (285488236) Edema (782.3) Inactive confirm ed Problem Abnormal glucose level (788690400) Other abnormal glucose (790.29) Inactive confirmed Problem Disorder of hematopoietic system (78039242) Other nonspecific findings on examination of blood (790.99) Inactive confirmed lipids meds all increase LFTs Problem Electrocardiogram abnormal (170201251) Nonspecific abnormal electrocardiogram (ECG) (EKG) (794.31) Inactive confirmed Problem Strain of rotator cuff capsule (69856204) Rotator cuff (capsule) sprain and strain (840.4) Inactive confirmed Problem Allergy (547556886) Allergy, unspecified not elsewhere classified (995.3) Inactive confirmed Problem Pre-surgery evaluation (557960045) Other specified pre-operative examination (V72.83) Inactive confirmed Problem Screening for osteoporosis (859614569) Special screening for osteoporosis (V82.81) Inactive confirmed Problem BMI 25-29 - overweight (389689457) Body Mass Index 28.0-28.9, adult (V85.24) Inactive confirmed Problem Achilles bursitis (041636798) Achilles bursitis or tendinitis (726.71) Inactive confirmed Problem Cervicalgia (53794278) Cervicalgia (723.1) Inactive confirmed Problem Low back pain (203792021) Lumbago, Low Back Pain (724.2) Inactive confirmed Problem Hand joint pain (354704304) Pain in joint, hand (719.44) Inactive confirmed Problem Essential hypertension (10998910) Hypertension, Unspecified essential hypertension (401.9) Inactive confirmed Problem Allergic rhinitis (31964280) Allergic rhinitis, cause unspecified (477.9) Inactive confirmed Problem Hypothyroidism (22678112) Unspecified hypothyroidism (244.9) Inactive confirmed Problem Lateral epicondylitis of elbow (663230522) Lateral epicondylitis of elbow (726.32) Inactive confirmed Problem General examination of patient (368764033) Routine general medical examination at health care facility (V70.0) Inactive confirmed Problem Disorder of rotator cuff (337357694) Other specified disorders of rotator cuff syndrome of shoulder and allied disorder (726.19) Inactive confirmed Problem Plantar fascial fibromatosis (38582002) Plantar fascial fibromatosis (728.71) Inactive confirmed Problem Dominguez (685212955) 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) Inactive confirmed Problem General examination of patient (992332195) Routine general medical examination at a health care facility (V70.0) Inactive confirmed Problem Constipation (71972624) Constipation due to pain medication (564.09) Inactive confirmed Problem 51574438 Exhaustion (780.79) Inactive confirmed Problem 110513018 Chest discomfort (786.59) Inactive confirmed Problem 91879765 Claudication in peripheral vascular disease (443.9) Inactive confirmed Problem Pain in limb (41244713) Foot pain, bilateral (729.5) Inactive confirmed Problem Right bundle branch block (95649117) RBBB (426.4) Inactive confirmed Problem Laboratory test result abnormal (512504450) Increased liver enzymes (790.5) Inactive confirmed Problem 032164230 Teeth clenching (306.8) Inactive confirmed Problem 94703407 Venous stasis dermatitis of both lower extremities (454.1) Inactive confirmed Problem 891437223 Walking troubles (719.7) Inactive confirmed Problem 827647564 Leg heaviness (729.89) Inactive confirmed Vital Signs Heart Rate 80 /min 09/06/2024 gained 1 pound Oximetry 97 % 09/06/2024 gained 1 pound Blood pressure diastolic 84 mm Hg 09/06/2024 gai lulu 1 pound Weight-kg 77.97 kg 09/06/2024 gained 1 pound Height 61.25 in 09/06/2024 gained 1 pound Blood pressure systolic 159 mm Hg 09/06/2024 gain ed 1 pound Weight 171.9 lbs 09/06/2024 gained 1 pound BMI 32.21 kg/m2 09/06/2024 gained 1 pound Encounters Encounter Location Date Provider Diagnosis - Endocrinology [address] [place] [address] 12/01/2023 Roney Eagle Hypokalemia E87.6 - Endocrinology [address] [place] [address] 12/28/2023 Roney Eagle [address] [id number] 01/29/2024 Dashawn Farias - Endocrinology [address] [place] [address] 02/02/2024 Roney Eagle - Endocrinology [address] [facility] [place] [address] 02/03/2024 Roney Eagle [address] [id number] 02/24/2024 Dashawn Farias [address] [id number] 03/10/2024 Dashawn Farias - Endocrinology [address] [facility] [place] [address] 03/29/2024 Roney Eagle Hyperparathyroidism E21.3 and Adult hypothyroidism E03.[address] [id number] 09/01/2024 Dashawn Farias Chronic hypertension I10 ; Fatty liver K76.0 ; Increased liver enzymes R74.8 ; Hyperlipidemia E78.5 and Glucose intolerance (pre-diabetes) R73.[address] [id number] 09/04/[address] [id number] 09/05/2024 Dashawn [place] [address] [id number] 09/06/2024 Dashawn Farias - Endocrinology [address] [facility] [place] [address] 09/15/2024 Roney Eagle [address] [id number] 09/23/2024 Dashawn Farias [address] [id number] 09/30/2024 Dashawn Farias Lumbar pain M54.50 ; 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 and Spinal stenosis of lumbar region at multiple levels M48.[address] [id number] 10/18/[address], [place] [id number] 11/02/2024 Dashawn Farias [facility] [address] [place] [id number] 09/06/2024 Dashawn [place] Hepatitis K75.9 ; Hyperparathyroidism E21.3 ; Vitamin D deficiency E55.9 ; Chronic hypertension I10 ; Fatty liver K76.0 ; Increased liver enzymes R74.8 ; Hyperlipidemia E78.5 ; Glucose intolerance (pre-diabetes) R73.09 and Primary hyperparathyroidism E21.0 [facility] [address] [place] [id number] 02/26/2024 Dashawn Dinora Pre-op evaluation Z0 1.818 ; Primary hyperparathyroidism E21.0 ; Osteoporosis M81.0 ; RBBB I45.10 ; Adult hypothyroidism E03.9 ; Fatty liver K76.0 ; Glucose intolerance (pre-diabetes) R73.09 ; Increased liver enzymes R74.8 ; Hyperlipidemia E78.5 ; Fatigue R53.83 ; Edema R60.9 and Hyperparathyroidism E21.3 - Rheumatology [address] [place] [address] 05/10/2024 Padmini Mariee Sjogrens syndrome, w ith unspecified organ involvement M35.00 ; Spinal stenosis M48.00 and Hand arthritis M12.9 - Endocrinology [address] [place] [address] 08/17/2024 Roney Eagle Primary hyperparathyroidism E21.0 ; Vitamin D deficiency E55.9 and Postmenopausal osteoporosis M81.0 - Rheumatology [address] [place] [address] 11/10/2023 Padmini Mariee Sjogrens syndrome, w ith unspecified organ involvement M35.00 ; Spinal stenosis M48.00 ; Hand arthritis M12.9 and Stenosing tenosynovitis of finger M65.30 - Endocrinology [address] [place] [address] 12/25/2023 Roney Eagle Primary hyperparathyroidism E21.0 ; Vitamin D deficiency E55.9 and Postmenopausal osteoporosis M81.0 - Endocrinology [address] [place] [address] 04/19/2024 Roney Eagle Primary hyperparathyroidism E21.0 ; Vitamin D deficiency E55.9 and Postmenopausal osteoporosis M81.0 - Endocrinology [address] [facility] [place] [address] 11/17/2023 Roney Eagle Primary hyperparathyroidism E21.0 ; Vitamin D deficiency E55.9 and Postmenopausal osteoporosis M81.0 Assessments Encounter Date Diagnosis (ICD Code) Assessment Notes Treatment Notes Treatment Clinical Notes Section Notes 09/01/2024 Chronic hypertension (ICD-10 - I10) 09/06/2024 Hyperparathyroidism (ICD-10 - E21.3) Your parathyroid level has gone from 145.4 to 62.8 which is high normal. Your dexascan is showing improvement. On 08-31-2023 compared to 02-12-2023 shows the spine went from -2.8 to 1.0 and the hip was -1.9 (the forearm in 2022 was -2.8) Dr. Eagle recommends calcium 500 mg a day (calcium citrate is better absorbed if you are taking medications for stomach acid) and 1-2 servings from diet with vitamin-D at 1000 IU a day. He reports it is okay to stay off alendronate and expects the DEXA scan (bone density) to continue to improve. He also recommends a DEXA scan (bone density) every year. 09/06/2024 Hepatitis (ICD-10 - K75.9) Although you have hepatitis, this is not an infectious hepatitis. Your AST has been as high as 358 (now 41) and your ALT has been as high as 620 (now 43). Since you have not seen Dr. Abdullahi for awhile it is reasonable to follow up with him. He may want to do another liver biopsy or a FibroScan. 09/30/2024 Lumbar pain (ICD-10 - M54.50) 11/10/2023 Sjogrens syndrome, with unspecified organ involvement (ICD-10 - M35.00) - symptoms worsened on tapering hydroxychloroquine to 200 mg once daily, increase hydroxychloroquine back to 400 mg once daily - yearly eye exam on med, follows Dr. García 11/17/2023 Primary hyperparathyroidism (ICD-10 - E21.0) Pt with likely primary hyperparathyroidism - has had elevated PTH levels even before going on bisphosphonates and high serum Ca in the past. Has osteoporosis with worst T-score of -2.8 at distal 1/3 radius, keeping with cortical bone loss seen in primary hyperparathyroidism. No fractures, no kidney stones. However, picture is complicated by HCTZ use which can increase serum Ca levels. However, even in those cases, PTH levels should not be elevated so primary hyperparathyroidism can still be a concern. No known family hx of parathyroid disease. Has been on alendronate, but no major improvement in BMD with this. Has had DXA done on different machines, so hard to compare, but overall BMD has been stable. - We discussed potential for primary hyperparathyroidism. Right now is on aledronate, which can increase PTH but even before this, PTH was higher. - Stop Cinacalcet - usually only used for severe hyperparathyroidism/h ypercalcemia where surgery cannot be done. - Discussed okay to get around 1000mg daily Ca from diet/supplements. Given list of calcium containing foods. - Will get Sestamibi scan - Will get 24hr urine Ca (will have to interpret in the setting of her taking both lasix and HCTZ) - Do labs before next visit when returning urine testing - Follow up in 4 weeks - 24 hour urine instructions:Go to the [facility] lab and collect a container.Choose a time where you will be home for 24 hours so that you can do a complete collection.On the day you are doing the collection, flush the first urine down the toilet, and then collect all urine for the next 24 hours in the container.The container should be kept in a cold either with ice or in the refrigerator.Once you complete the collection, return the container to the lab and do bloodwork on that same day. 12/25/2023 Primary hyperparathyroidism (ICD-10 - E21.0) Pt with likely primary hyperparathyroidism - has had elevated PTH levels even before going on bisphosphonates and high serum Ca in the past. Currently, Ca high at 11.4, and urine calcium elevated to 290mg/24hrs, consistent with primary hyperparathyroidism. Has osteoporosis with worst T-score of -2.8 at distal 1/3 radius in January 2023. Most recent DXA in Aug 2023 with lowest T-score of -1.9 at L femoral neck (though distal 1/3 radius not done). Is on HCTZ, but this should not cause elevated PTH levels and such significant elevations in serum calcium. Sestamibi scan also with focus concerning for L lower parathyroid adenoma. - Discussed with pt that she meets criteria for surgery given elevated Ca, elevated urine calcium and osteoporosis at distal 1/3 radius. - Discussed bone densities should improve post-op but this may take 1-2 years at least. - Okay to continue on alendronate now, but may need to be stopped before surgery to prevent hypocalcemia. - Remain off cinacalcet. - Continue taking calcium 500mg once a day and getting 1-2 servings dairy through diet. Still important to get enough calcium through diet/supplements to prevent further elevations in PTH levels. - Refer to Dr. Irina Messer, Endo Surgeon at [facility] - Checking PTH and Ca levels again today - Follow up in 6 weeks with labs before 12/01/2023 Hypokalemia (ICD-10 - E87.6) 02/26/2024 Pre-op evaluation (ICD-10 - Z01.818) 02/26/2024 Primary hyperparathyroidism (ICD-10 - E21.0) 03/29/2024 Hyperparathyroidism (ICD-10 - E21.3) 03/29/2024 Adult hypothyroidism (ICD-10 - E03.9) 04/19/2024 Primary hyperparathyroidism (ICD-10 - E21.0) Pt with primary hyperparathyroidism now s/p L lower parathyroidectomy with resolution of hypercalcemia and now PTH significantly improved, just above upper limit of normal. No major issues since surgery. - She is cured of primary hyperparathyroidism based on normal calcium level. Discussed that if she has high calcium again, this may be a sign of recurrence. - Discussed bone densities will improve in around 1-2 years post op. - For now, can stop alendronate. - Will plan to repeat DXA around 1 year from surgery in Feb 2025. - Continue taking calcium 500mg once a day and getting 1-2 servings dairy through diet. - Continue vitamin D3 1000 units a day - Follow up in 3 months with labs before to monitor calcium and PTH levels 05/10/2024 Spinal stenosis (ICD-10 - M48.00) - she plans to see a spine surgeon for her back, she is off alendronate and calcium and PTH levels are much better since she had parathyroidectomy 05/10/2024 Sjogrens syndrome, with unspecified organ involvement (ICD-10 - M35.00) - doing better overall -continue hydroxychloroquine, 200 and 400 mg on alternate days - follows Dr. García, she reports going in every 4-6 months 08/17/2024 Primary hyperparathyroidism (ICD-10 - E21.0) Pt with primary hyperparathyroidism now s/p L lower parathyroidectomy with resolution of hypercalcemia and normalization of PTH. Doing well and no concerns for recurrence of hypercalcemia. - Follow up in Mar 2025, around 1 year from surgery. Plan to do DXA before that visit. - Continue taking calcium 500mg once a day and getting 1-2 servings dairy through diet. - Continue vitamin D3 1000 units a day 09/01/2024 Fatty liver (ICD-10 - K76.0) 09/01/2024 Increased liver enzymes (ICD-10 - R74.8) 08/17/2024 Vitamin D deficiency (ICD-10 - E55.9) On vitamin D3 1000 units daily and level acceptable at 39 - Will check again before next visit 05/10/2024 Hand arthritis (ICD-10 - M12.9) - continue topical diclofenac and Tylenol Arthritis 04/19/2024 Vitamin D deficiency (ICD-10 - E55.9) On vitamin D3 1000 units daily for now. 12/25/2023 Vitamin D deficiency (ICD-10 - E55.9) On 5000 IU daily D3. Level of 40 at last check. - Okay to continue on current vitamin D replacement. 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 With alendronate, not fracturing but no significant improvements in BMD. - Working up primary hyperparathyroidism as above. - Once we have a confirmed diagnosis of primary hyperparathyroidism, can consider parathyroidectomy. We discussed that BMD may take 2 years to improve post op - We can also consider switching to Prolia for improvement in BMD and some data to support its use in primary hyperparathyroidism as well - Avoiding Forteo/Tymlos due to hypercalcemia/hyperpa rathyroidism 11/17/2023 Vitamin D deficiency (ICD-10 - E55.9) On 5000 IU daily D3. 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 With alendronate, not fracturing but no significant improvements in BMD. She has confirmed primary hyperparathyroidism and meets criteria for surgery - For now, okay to continue on alendronate, but once parathyroidectomy planned, can stop. 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 On alendronate, but now s/p parathyroidectomy with resolution of hypercalcemia. - For now, can stop alendronate given that bone density should improve post parathyroidectomy. - Will done DXA in Feb 2025 to reassess. 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 Was on alendronate, but since parathyroidectomy in Mar 2024, no longer taking. - Okay to stay off alendronate. Bone densities should improve post parathyroidectomy. - Next DXA in Mar 2025, around 1 year after surgery 09/01/2024 Hyperlipidemia (ICD-10 - E78.5) 09/01/2024 Glucose intolerance (pre-diabetes) (ICD-10 - R73.09) 11/10/2023 Stenosing tenosynovitis of finger (ICD-10 - M65.30) - advised to use trigger finger splint, will consider injection if no improvement 02/26/2024 Adult hypothyroidism (ICD-10 - E03.9) 09/06/2024 Chronic hypertension (ICD-10 - I10) 09/06/2024 Fatty liver (ICD-10 - K76.0) 02/26/2024 Fatty liver (ICD-10 - K76.0) 02/26/2024 Glucose intolerance (pre-diabetes) (ICD-10 - R73.09) 09/06/2024 Increased liver enzymes (ICD-10 - R74.8) 09/06/2024 Hyperlipidemia (ICD-10 - E78.5) 02/26/2024 Increased liver enzymes (ICD-10 - R74.8) 02/26/2024 Hyperlipidemia (ICD-10 - E78.5) 09/06/2024 Glucose intolerance (pre-diabetes) (ICD-10 - R73.09) 09/06/2024 Primary hyperparathyroidism (ICD-10 - E21.0) 02/26/2024 Fatigue (ICD-10 - R53.83) 02/26/2024 Edema (ICD-10 - R60.9) The lowest sodium broth is at [employer]. There is a broth with almost no sodium. I believe it is the [employer] brand, but you have to look since it has both with different amounts of sodium. 02/26/2024 Hyperparathyroidism (ICD-10 - E21.3) 02/26/2024 Other Hold all nonste roidal medicines (such as ibuprofen, Advil, Motrin, Aleve, naproxen); aspirin, and oheo-txw-lcqnyvo supplements for 1 week prior to surgery. If receiving anesthesia please verify with surgeon and anesthesiologist about holding any medication prior to surgery. 05/10/2024 Other 09/06/[address] Benavidez is a neurosurgeon on [facility]. Plan Of Treatment Pending Test Test Name Order Date EKG Electrocardiogram 08/30/2020 EKG Electrocardiogram 04/07/2023 BASIC METABOLIC PANL-NON FAST. CBC WITH AUTO DIFF 08/21/2020 COMP. METABOLIC PANEL FAST 02/01/2019 LIVER ENZYMES 08/21/2020 LIPID PROFILE 02/01/2019 PT INR ASSAY 02/26/2024 PT INR ASSAY 09/01/2024 NM PARATHYROID SCAN WITH SPECT 9 US RENAL AND BLADDER 08/30/2020 SARS CoV 2 SEROLOGY (COVID 19) AB (IGG), [place] 01/11/2020 DEXA AXIAL AND APPEND SKELETON 3 COMP. METABOLIC PANEL FAST 08/30/2020 IONIZED CALCIUM 08/30/2020 LIPID PROFILE 08/30/2020 PARATHYROID HORMONE INTACT,PL 08/30/2020 CALCIUM, 24HR URINE 08/30/2020 CREATININE, 24HR URINE 08/30/2020 VITAMIN D, 1,25-DIHYDROXY 08/30/2020 FREE THYROXIN (FREE T4) 02/26/2024 IONIZED CALCIUM 02/26/2024 PHOSPHOROUS 02/26/2024 TSH SENSITIVE 02/26/2024 Next Appt Details Provider Name:Padmini Mariee , 11/08/2024 12:30:00 PM, [address] [place] [address], [phone], Provider Name:Roneymansi Eagle, 04/11/2025 01:00:00 PM, [address] [place] [address], [phone], Insurance Providers Payer Name Payer Address Payer Phone Subscriber Number Group Number Insured Name Patient Relationship to Insured Coverage Start Date Coverage End Date [employer] [address] [place] [address] [id number] TRICIA HURTADO Self - patient is the insured Medical (General) History Medical History History ICD Code 02-15-2020 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 tibial arteries bilat glucose intolerance hypothyroidism DDD & DJD C4-5-6 tibial tendonitis, lateral e picondylitis, R rotator cuff sprain, Achilles tendonosis (? small tear) flat feet with plantar fascitis (Dr. 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 Posadas) actinic keratoses (Dr. Glover) edema mycoplasma pneumonia varicosities LEs external hemorrhoids with anterior anal fissure eczema of scalp (Dr. Covington) lumbar MRI: DDD with DJD, L2 -3 severe DDD & annular tear with min. retrolisthesis L2 on L3, L5-S1 post op changes due to fusion, fatty infiltration and atrophy of paraspinal muscles, sanjuana. lower lumbar spine (similar to prior studies) insomnia 12-05-2018? stable thyroid nodule; 020: unchanged recurring rectal fissures--m ay never heal entirely due to scar tissue (Dr. Estrella) 07-15-18 influenza 07-08-2021 lumbar MRI: L3-4 spinal stenosis; 10-10-2024: Degenerative disc disease with degenerative joint disease at L2-3 -4-5, mild spinal stenosis at L3-4, mild left foraminal stenosis at L2 -3, mild impression of the anterior thecal sac at L1-3, convex right thoracolumbar scoliosis 10-22-15 dexascan: normal (for earm -0.5, hip 0.0); 07-28-2019: osteopenia (spine 1.5, hip -1.2); 10-16-2021 osteoporosis (hip -1.7, forearm -2.8); 02-12-2023 osteoporosis unchanged (spine -1.7, hip -2.8); 08-31-2023: osteopenia (spine 1.0, hip -1.9) 03-09-2020 US of breasts: ok (declines ma mmograms) anal stenosis with anal fissure (Dr. Guan rkkwan) 01-19-14 colonoscopy: 2 tubula r adenomas (Dr. Estrella--3 years, but does not want to do while patient is on xarelto) declines immunizations 10-08-2023 discussed Advance Directives and handout given, has living will, health agent is daughter Audrey Parson 09-22-2024 nuclear liver/spleen scan: norm al Surgical History Surgery Date(Month/Year) Mohs surgery squamous cell c arcinoma of L pretibial region (Dr. Palafox) 03/12/2024 L inferior parathyroidectomy (Dr. Agusto lind) 03/22/2024 liver biopsies in 1996 & 1986 & 2009 partial hysterectomy for fib roids (ovaries intact) and vaginal prolapse 1979 L4-5 fusion 1989 tranabdominal sacrocolpopexy , lysis of adhesions, L salpingo-oopherectomy, post. coloporrhaphy, repair of enterocele (Drs. Rodríguez and Letty) 12/22/03 OS cataract (Dr. García) 02/16/14 OD cataract 03/02/14 lip biopsy Sjogren's syndrome 2017 bilateral iliac stenting Jun 2019 fem/pop 1st vessel atherectomy RLE (Dr. Dove) 02/17/2020 Hospitalization History Reason Date(Month/Year) surgeries and childbirth [facility]: CVA with R hemiparesis 07-08->06-20 [facility] Observation: collapse d ue to dehydration, BUN/Cr = 9/0.46, glucose 122, ALT 123, AST 89, head CT with old infarcts 10-07-16 [facility]: phlegmasia cerulea dol ens of RLE with EK OS cath and post procedure bleed on xarelto 02-14->02-21-2020 [facility] ED: syncope, ?vasovagal with dehydration, EKG RBBB with increased QT interval 09-02-2021
--- OUTSIDE RECORDS SUMMARY | 2024-11-04 15:05 | XMS_ITS | Encounter Summary ---
Author Organization [facility] Address [address] [place] [address] Care Team Providers Care Fire Alarm Repairer Name Role Phone Kavita Farias MD Primary Care Provider [phone] Padmini Mariee MD Unavailable [phone] Petty Tavarez MD Unavailable [phone] Yvonne Estrella MD Unavailable [phone] Darlene Rivera Unavailable [phone] Petty Tavarez MD Unavailable [phone] Nehal Snowden PA-C Unavailable [phone] John Clark MD Unavailable [phone] Petty Tavarez MD Unavailable [phone] Encounter Details Date Type Department Care Team (Late st Contact Info) Description 05/02/[address] [facility] Vascular & Endovascular Surgery [place] [address] [facility] [place] [phone] Sita Diane PA [address] [place] [address] Social History Tobacco Use Types Packs/Day Years [...] EDT Appointment [facility] Department of Ophthalmology [address] [phone] 05/16/2025 1:15 PM EDT Appointment [facility] Department of Ophthalmology [address] [phone] Arvin García MD [address] [place] [address] documented as of this encounter Visit Diagnoses Not on filedocumented in this encounter Care Teams Fire Alarm Repairer Relationship Specialty Start Date End Date Kavita Farias MD [address] [place] [address] PCP - General 06/23/13 Nehal Snowden, PA-C [address] [place] [address] PCP - [employer] Medicare Attributed 10/18/22 01/16/23 Padmini Mariee MD [address] [place] [address] Referring Provider Rheumatology 03/02/18 Petty Tavarez MD [address] [place] [address] Surgery, Vascular 05/08/20 Yvonne Estrella MD [address] [place] [address] Physician Surgery, Colorectal 05/16/20 Darlene Rivera PA [address] [place] [address] 05/16/20 Petty Tavarez MD [address] [place] [address] Surgery, Vascular 05/16/20 05/28/21 John Clark MD [address] [place] [address] Resident Endocrinology 02/17/24 Petty Tavarez MD [address] [place] [address] Surgery, Vascular 02/17/24 documented as of this encounter
--- OUTSIDE RECORDS SUMMARY | 2024-11-04 15:05 | XMS_ITS | Encounter Summary ---
Author Organization [facility] Address [address] [place] [address] Care Team Providers Care Director Medical Safety Name Role Phone Kavita Farias MD Primary Care Provider [phone] Padmini Mariee MD Unavailable Petty Tavarez MD Unavailable [phone] Yvonne Estrella MD Unavailable [phone] Darlene Rivera Unavailable [phone] Nehal Snowden PA-C Unavailable [phone] John Clark MD Unavailable [phone] Petty Tavarez MD Unavailable [phone] Reason for Visit * Reason Comments Medication Refill Encounter Details Date Type Department Care Team (Late st Contact Info) Description 08/24/2021 Refill [facility] [address] [facility] [address] [place], [place] [phone] Yvonne Estrella MD [address] [place] [address] Chronic idiopathic constipation Social History Tobacco Use [...] Info) Description 05/16/2025 1:15 PM EDT Appointment [facility] Department of Ophthalmology [address] [phone] 05/16/2025 1:15 PM EDT Appointment [facility] Department of Ophthalmology [address] [phone] Arvin García MD [address] [place] [address] documented as of this encounter Visit Diagnoses Diagnosis Chronic idiopathic constipation Unspecified constipation documented in this encounter Care Teams Director Medical Safety Relationship Specialty Start Date End Date Kavita Farias MD [address] [place] [address] PCP - General 06/23/13 Nehal Snowden, PA-C [address] [place], [place] [phone] PCP - [employer] Medicare Attributed 10/18/22 01/16/23 Padmini Mariee MD [address] [place] [address] Referring Provider Rheumatology 03/02/18 Petty Tavarez MD [address] [place] [address] Surgery, Vascular 05/08/20 Yvonne Estrella MD [address] [place] [address] Physician Surgery, Colorectal 05/16/20 Darlene Rivera PA [address] [place] [address] 05/16/20 John Clark MD [address] [place] [address] Resident Endocrinology 02/17/24 Petty Tavarez MD [address] [place] [address] Surgery, Vascular 02/17/24 documented as of this encounter
--- OUTSIDE RECORDS SUMMARY | 2024-11-04 15:05 | XMS_ITS | Clinical Summary ---
Author Organization [facility] Address [address] [place] [address] Care Team Providers Care Ciaio Lumite Injector Name Role Phone Brittany Curry Primary Care Provider [phone] Allergies Active Allergy Reactions Criticality Noted Date [...] us : Father Cancer (?Type) Mother malignant ekn plasm of urinary bladder : Mother Hearing [...] Recently Relevant to Health Maintenance Care Teams Ciaio Lumite Injector Relationship Specialty Start Date End Date Brittany Curry [address] [place] [address] PCP - General 02/23/23
--- OUTSIDE RECORDS SUMMARY | 2024-11-04 15:05 | XMS_ITS | Encounter Summary ---
Author Organization [facility] Address [address] [place] [address] Care Team Providers Care Beauty Culturist Name Role Phone Kavita Farias MD Primary Care Provider [phone] Padmini Mariee MD Unavailable [phone] Petty Tavarez MD Unavailable [phone] Yvonne Estrella MD Unavailable [phone] Darlene Rivera Unavailable [phone] Petty Tavarez MD Unavailable [phone] Nehal Snowden PA-C Unavailable [phone] John Clark MD Unavailable [phone] Petty Tavarez MD Unavailable [phone] Encounter Details Date Type Department Care Team (Late st Contact Info) Description 04/18/2020 Telephone [facility] [address] [facility] [address] [place], [place] [phone] Yvonne Estrella MD [address] [place] [address] Social History Tobacco Use Types Packs/Day Years [...] EDT Appointment [facility] Department of Ophthalmology [address] [phone] 05/16/2025 1:15 PM EDT Appointment [facility] Department of Ophthalmology [address] [phone] Arvin García MD [address] [place] [address] documented as of this encounter Visit Diagnoses Not on filedocumented in this encounter Care Teams Beauty Culturist Relationship Specialty Start Date End Date Kavita Farias MD [address] [place] [address] PCP - General 06/23/13 Nehal Snowden, MARIOC [address] [place] [address] PCP - [employer] Medicare Attributed 10/18/22 01/16/23 Padmini Mariee MD [address] [place] [address] Referring Provider Rheumatology 03/02/18 Petty Tavarez MD [address] [place] [address] Surgery, Vascular 05/08/20 Yvonne Estrella MD [address] [place] [address] Physician Surgery, Colorectal 05/16/20 Darlene Rivera PA [address] [place] [address] 05/16/20 Petty Tavarez MD [address] [place], [place] [phone] Surgery, Vascular 05/16/20 05/28/21 John Clark MD [address] [place] [address] Resident Endocrinology 02/17/24 Petty Tavarez MD [address] [place] [address] Surgery, Vascular 02/17/24 documented as of this encounter
--- OUTSIDE RECORDS SUMMARY | 2024-11-04 15:05 | XMS_ITS | Encounter Summary ---
Author Organization [facility] Address [address] [place] [address] Care Team Providers Care Motor Grader Operator Name Role Phone Kavita Farias MD Primary Care Provider [phone] Padmini Mariee MD Unavailable [phone] Petty Tavarez MD Unavailable [phone] Yvonne Estrella MD Unavailable +[phone] Darlene Rivera Unavailable +[phone] Nehal Snowden PA-C Unavailable +[phone] John Clark MD Unavailable +[phone] Petty Tavarez MD Unavailable [phone] Reason for Visit * Reason Comments Medication Refill Encounter Details Date Type Department Care Team (Late st Contact Info) Description 08/20/2022 Refill [facility] Vascular & Endovascular Surgery [place] [address] [facility] [address] [place] [phone] Sita Diane PA [address] [address] [place] [address] Personal history of venous thrombosis and embolism [...] EDT Appointment [facility] Department of Ophthalmology [address] [address] 05/16/2025 1:15 PM EDT Appointment [facility] Department of Ophthalmology [address] [address] Arvin García MD [address] [place] [address] documented as of this encounter Visit Diagnoses Diagnosis Personal history of venous thrombosis and embolism documented in this encounter Care Teams Motor Grader Operator Relationship Specialty Start Date End Date Kavita Farias MD [address] [place] [address] PCP - General 06/23/13 Nehal Snowden, PA-C [address] [place] [address] PCP - [employer] Medicare Attributed 10/18/22 01/16/23 Padmini Mariee MD [address] [place] [address] Referring Provider Rheumatology 03/02/18 Petty Tavarez MD [address] [place] [address] Surgery, Vascular 05/08/20 Yvonne Estrella MD [address] [place] [address] Physician Surgery, Colorectal 05/16/20 Darlene Rivera PA [address] [place] [address] 05/16/20 John Clark MD [address] [place] [address] Resident Endocrinology 02/17/24 Petty Tavarez MD [address] [place] [address] Surgery, Vascular 02/17/24 documented as of this encounter
--- OUTSIDE RECORDS SUMMARY | 2024-11-04 15:05 | XMS_ITS | Encounter Summary ---
Author Organization [facility] Address [address] [place] [address] Care Team Providers Care Electronics Engineer Name Role Phone Kavita Farias MD Primary Care Provider [phone] Padmini Mariee MD Unavailable [phone] Petty Tavarez MD Unavailable [phone] Yvonne Estrella MD Unavailable [phone] Darlene Rviera Unavailable +[phone] Petty Tavarez MD Unavailable [phone] Nehal Snowden PA-C Unavailable [phone] John Clark MD Unavailable [phone] Petty Tavarez MD Unavailable [phone] Encounter Details Date Type Department Care Team (Late st Contact Info) Description 01/31/2021 Scanned Document [facility] Vascular & Endovascular Surgery [place] [address] [facility] [address] [place] [phone] Sita Diane PA [address] [facility] [address] [place] [address] Social History Tobacco Use Types Packs/Day Years [...] Appointment [facility] Department of Ophthalmology [address] [address] 05/16/2025 1:15 PM EDT Appointment [facility] Department of Ophthalmology [address] [address] Arvin García MD [address] [place] [address] documented as of this encounter Visit Diagnoses Not on filedocumented in this encounter Care Teams Electronics Engineer Relationship Specialty Start Date End Date Kavita Farias MD [address] [place] [address] PCP - General 06/23/13 Nehal Snowden PA-C [address] [place] [address] PCP - [employer] Medicare Attributed 10/18/22 01/16/23 Padmini Mariee MD [address] [place] [address] Referring Provider Rheumatology 03/02/18 Petty Tavarez MD [address] [place] [address] Surgery, Vascular 05/08/20 Yvonne Estrella MD [address] [place] [address] Physician Surgery, Colorectal 05/16/20 Darlene Rivera PA 4 [place] [address] 05/16/20 Petty Tavarez MD [address] [place] [address] Surgery, Vascular 05/16/20 05/28/21 John Clark MD [address] [place] [address] Resident Endocrinology 02/17/24 Petty Tavarez MD [address] [place] [address] Surgery, Vascular 02/17/24 documented as of this encounter
--- OUTSIDE RECORDS SUMMARY | 2024-11-04 15:05 | XMS_ITS | Encounter Summary ---
Author Organization [facility] Address [address] [place] [address] Care Team Providers Care Hr Shared Services Consultant Name Role Phone Kavita Farias MD Primary Care Provider [phone] Padmini Mariee MD Unavailable [phone] Petty Tavarez MD Unavailable [phone] Yvonne Estrella MD Unavailable [phone] Darlene Rivera Unavailable +[phone] John Clark MD Unavailable [phone] Petty Tavarez MD Unavailable [phone] Encounter Details Date Type Department Care Team (Late st Contact Info) Description 12/31/2023 Telephone [facility] Endocrine Surgery [address] 207 [place] [address] Irina Messer MD [address] [facility] 202 [place] [address] Social History Tobacco Use Types Packs/Day Years [...] EDT Appointment [facility] Department of Ophthalmology [address] [address] 05/16/2025 1:15 PM EDT Appointment [facility] Department of Ophthalmology [address] [address] Arvin García MD [address] [place] [address] documented as of this encounter Visit Diagnoses Not on filedocumented in this encounter Care Teams Hr Shared Services Consultant Relationship Specialty Start Date End Date Kavita Farias MD [address] [place] [address] PCP - General 06/23/13 Padmini Mariee MD [address] [place] [address] Referring Provider Rheumatology 03/02/18 Petty Tavarez MD [address] [address] Surgery, Vascular 05/08/20 Yvonne Estrella MD [address] [place] [address] Physician Surgery, Colorectal 05/16/20 Darlene Rivera PA 4 [place] [address] 05/16/20 John Clark MD [address] [place] [address] Resident Endocrinology 02/17/24 Petty Tavarez MD [address] [address] Surgery, Vascular 02/17/24 documented as of this encounter
--- OUTSIDE RECORDS SUMMARY | 2024-11-04 15:05 | XMS_ITS | Clinical Summary ---
Author Organization [facility] Address [address] [place] [address] Care Team Providers Care Neck Skewer Name Role Phone Unavailable Primary Care Provider [...]
--- OUTSIDE RECORDS SUMMARY | 2024-11-04 15:05 | XMS_ITS | Encounter Summary ---
Author Organization [facility] Address [address] [place] [address] Care Team Providers Care Phlebotomy Director Name Role Phone Kavita Farias MD Primary Care Provider [phone] Padmini Mariee MD Unavailable [phone] Petty Tavarez MD Unavailable [phone] Yvonne Estrella MD Unavailable [phone] Darlene Rivera Unavailable +[phone] Nehal Snowden PA-C Unavailable [phone] John Clark MD Unavailable [phone] Petty Tavarez MD Unavailable [phone] Reason for Visit * Reason Comments Medication Refill Encounter Details Date Type Department Care Team (Late st Contact Info) Description 09/17/2021 Refill [place] [facility] [address] [facility] [address] [place], [place] [phone] Yvonne Estrella MD 440 [place] [address] Social History Tobacco Use Types Packs/Day Years [...] Upcoming Encounters Date Type Department Care Team ([facility] st Contact Info) Description 05/16/2025 1:15 PM EDT Appointment [facility] Department of Ophthalmology [address] [address] 05/16/2025 1:15 PM EDT [facility]ointment [facility] Department of Ophthalmology [address] [address] Arvin García MD [address] [place] [address] documented as of this encounter Visit Diagnoses Not on filedocumented in this encounter Care Teams Phlebotomy Director Relationship Specialty Start Date End Date Kavita Farias MD [address] [place] [address] PCP - General 06/23/13 Nehal Snowden, PA-C [address] [place] [address] PCP - A[employer] Medicare Attributed 10/18/22 01/16/23 Padmini Mariee MD [address] [place] [place] [address] Referring Provider Rheumatology 03/02/18 Petty Tavarez MD [address] [place] [address] Surgery, Vascular 05/08/20 Yvonne Estrella MD [address] [place] [address] Physician Surgery, Colorectal 05/16/20 Darlene Rivera PA [address] [place] [address] 05/16/20 John Clark MD [address] [place] [address] Resident Endocrinology 02/17/24 Petty Tavarez MD [address] [place] [address] Surgery, Vascular 02/17/24 documented as of this encounter
--- OUTSIDE RECORDS SUMMARY | 2024-11-04 15:05 | XMS_ITS | Encounter Summary ---
Author Organization [facility] Address [address] [place] [address] Care Team Providers Care Optical Model Maker And Tester Name Role Phone Kavita Farias MD Primary Care Provider [phone] Padmini Mariee MD Unavailable [phone] Petty Tavarez MD Unavailable [phone] Yvonne Estrella MD Unavailable [phone] Darlene Rivera Unavailable [phone] Nehal Snowden PA-C Unavailable [phone] John Clark MD Unavailable [phone] Petty Tvaarez MD Unavailable [phone] Encounter Details Date Type Department Care Team (Late st Contact Info) Description 06/09/2022 Scanned Document [facility] Vascular & Endovascular Surgery [address] [place] [address] Vascular Surgery, Scan Social History Tobacco [...] Info) Description 05/16/2025 1:15 PM EDT Appointment [facility] Department of Ophthalmology [address] [address] 05/16/2025 1:15 PM EDT Appointment [facility] Department of Ophthalmology [address] [address] Arvin García MD [address] [place] [address] documented as of this encounter Visit Diagnoses Not on filedocumented in this encounter Care Teams Optical Model Maker And Tester Relationship Specialty Start Date End Date Kavita Farias MD [address] [place] [address] PCP - General 06/23/13 Nehal Snowden, PA-C [address] [place], [place] [address] PCP - A[employer]na Medicare Attributed 10/18/22 01/16/23 Padmini Mariee MD [address] [place] [address] Referring Provider Rheumatology 03/02/18 Petty Tavarez MD [address] [place] [address] Surgery, Vascular 05/08/20 Yvonne Estrella MD [address] [place] [address] Physician Surgery, Colorectal 05/16/20 Darlene Rivera PA [address] [place] [address] 05/16/20 John Clark MD [address] [place] [address] Resident Endocrinology 02/17/24 Petty Tavarez MD [address] [place] [address] Surgery, Vascular 02/17/24 documented as of this encounter
--- OUTSIDE RECORDS SUMMARY | 2024-11-04 15:05 | XMS_ITS | Encounter Summary ---
Author Organization [facility] Address [address] [place] [address] Care Team Providers Care Health Safety And Environment Manager Name Role Phone Kavita Farias MD Primary Care Provider [phone] Padmini Mariee MD Unavailable [phone] Petty Tavarez MD Unavailable [phone] Yvonne Estrella MD Unavailable [phone] Darlene Rivera Unavailable [phone] Nehal Snowden PA-C Unavailable [phone] John Clark MD Unavailable [phone] Petty Tavarez MD Unavailable [phone] Encounter Details Date Type Department Care Team (Late st Contact Info) Description 09/17/2021 Scanned Document [facility] Vascular & Endovascular Surgery [address] [place] [phone] Sita Diane PA [address] [facility] [address] [place] [address] Social History Tobacco Use Types Packs/Day Years [...] Info) Description 05/16/2025 1:15 PM EDT Appointment [facility] Department of Ophthalmology [address] [address] 05/16/2025 1:15 PM EDT Appointment [facility] Department of Ophthalmology [address] [address] Arvin García MD [address] [place] [address] documented as of this encounter Visit Diagnoses Not on filedocumented in this encounter Care Teams Health Safety And Environment Manager Relationship Specialty Start Date End Date Kavita Farias MD [address] [place] [address] PCP - General 06/23/13 Nehal Snowden, PA-C [address] [place], [place] [address] PCP - A[employer] Medicare Attributed 10/18/22 01/16/23 Padmini Mariee MD [address] [place] [address] Referring Provider Rheumatology 03/02/18 Petty Tavarez MD [address] [place] [address] Surgery, Vascular 05/08/20 Yvonne Estrella MD [address] [place] [address] Physician Surgery, Colorectal 05/16/20 Darlene Rivera PA 4 [place] [address] 05/16/20 John Clark MD [address] [place] [address] Resident Endocrinology 02/17/24 Petty Tavarez MD [address] [place] [address] Surgery, Vascular 02/17/24 documented as of this encounter
--- OUTSIDE RECORDS SUMMARY | 2024-11-04 15:05 | XMS_ITS | Encounter Summary ---
Author Organization [facility] Address [address] [place] [address] Care Team Providers Care Animal Nutrition Teacher Name Role Phone Kavita Farias MD Primary Care Provider [phone] Padmini Mariee MD Unavailable [phone] Petty Tavarez MD Unavailable [phone] Yvonne Estrella MD Unavailable [phone] Darlene Rivera Unavailable +[phone] Nehal Snowden PA-C Unavailable +[phone] John Clark MD Unavailable [phone] Petty Tavarez MD Unavailable [phone] Reason for Visit * Reason Comments Medication Refill Encounter Details Date Type Department Care Team (Late st Contact Info) Description 06/03/2021 Refill [place] [facility] [address] [facility] [address] [place] [phone] Yvonne Estrella MD 440 [place] [address] Chronic idiopathic constipation Social History Tobacco Use [...] Info) Description 05/16/2025 1:15 PM EDT Appointment [facility] Department of Ophthalmology [address] [address] 05/16/2025 1:15 PM EDT Appointment [facility] Department of Ophthalmology [address] [address] Arvin García MD [address] [place] [address] documented as of this encounter Visit Diagnoses Diagnosis Chronic idiopathic constipation Unspecified constipation documented in this encounter Care Teams Animal Nutrition Teacher Relationship Specialty Start Date End Date Kavita Farias MD [address] [place] [address] PCP - General 06/23/13 Nehal Snowden PA-C [address] [place] [address] PCP - A[employer] Medicare Attributed 10/18/22 01/16/23 Padmini Mariee MD [address] [place] [address] Referring Provider Rheumatology 03/02/18 Petty Tavarez MD [address] [place], [place] [address] (Work) Surgery, Vascular 05/08/20 Yvonne Estrella MD [address] [place] [address] Physician Surgery, Colorectal 05/16/20 Darlene Rivera PA 4 [place] [address] 05/16/20 John Clark MD [address] [place] [address] Resident Endocrinology 02/17/24 Petty Tavarez MD [address] [place] [address] Surgery, Vascular 02/17/24 documented as of this encounter
--- OUTSIDE RECORDS SUMMARY | 2024-11-04 15:05 | XMS_ITS | Encounter Summary ---
Author Organization [facility] Address [address] [place] [address] Care Team Providers Care Reinsurance Claims Analyst Name Role Phone Kavita Farias MD Primary Care Provider [phone] Padmini Mariee MD Unavailable [phone] Petty Tavarez MD Unavailable [phone] Yvonne Estrella MD Unavailable [phone] Darlene Rivera Unavailable [phone] John Clark MD Unavailable [phone] Petty Tavarez MD Unavailable [phone] Encounter Details Date Type Department Care Team (Late st Contact Info) Description 02/15/2024 Scanned Document [facility] Endocrine Surgery [address] [place] [address] Irina Messer MD [address] [facility] 202 [place] [address] Social History Tobacco Use Types Packs/Day Years [...] Upcoming Encounters Date Type Department Care Team ([facility] st Contact Info) Description 05/16/2025 1:15 PM EDT Appointment [facility]icians Department of Ophthalmology [address] [address] 05/16/2025 1:15 PM EDT Appointment [facility] Department of Ophthalmology [address] [address] Arvin García MD [address] [place] [address] documented as of this encounter Visit Diagnoses Not on filedocumented in this encounter Care Teams Reinsurance Claims Analyst Relationship Specialty Start Date End Date Kavita Farias MD [address] [place] [address] PCP - General 06/23/13 Padmini Mariee MD [address] [place] [address] Referring Provider Rheumatology 03/02/18 Petty Tavarez MD [address] [address] Surgery, Vascular 05/08/20 Yvonne Estrella MD [address] [place] [address] Physician Surgery, Colorectal 05/16/20 Darlene Rivera PA 4 [place] [address] 05/16/20 John Clark MD 41 [place] [address] Resident Endocrinology 02/17/24 Petty Tavarez MD [address] [place] [address] Surgery, Vascular 02/17/24 documented as of this encounter
--- OUTSIDE RECORDS SUMMARY | 2024-11-04 15:05 | XMS_ITS | Encounter Summary ---
Author Organization [facility] Address [address] [place] [address] Care Team Providers Care Billet Shearer Name Role Phone Kavita Farias MD Primary Care Provider [phone] Padmini Mariee MD Unavailable [phone] Petty Tavarez MD Unavailable [phone] Yvonne Estrella MD Unavailable [phone] Darlene Rivera Unavailable [phone] Petty Tavarez MD Unavailable [phone] Nehal Snowden PA-C Unavailable [phone] John Clark MD Unavailable [phone] Petty Tavarez MD Unavailable [phone] Encounter Details Date Type Department Care Team (Late st Contact Info) Description 03/21/2021 Scanned Document [facility] Vascular & Endovascular Surgery [place] [address] [facility] [address] [place] [phone] Sita Diane PA [address] [facility] [address] [place] [address] Social History Tobacco Use Types Packs/Day Years [...] EDT Appointment [facility] Department of Ophthalmology [address] [address] 05/16/2025 1:15 PM EDT Appointment [facility] Department of Ophthalmology [address] [address] Arvin García MD [address] [place] [address] documented as of this encounter Visit Diagnoses Not on filedocumented in this encounter Care Teams Billet Shearer Relationship Specialty Start Date End Date Kavita Farias MD [address] [place] [address] PCP - General 06/23/13 Nehal Snowden, PA-C [address] [place] [address] PCP - [employer] Medicare Attributed 10/18/22 01/16/23 Padmini Mariee MD [address] [place] [address] Referring Provider Rheumatology 03/02/18 Petty Tavarez MD [address] [place] [address] Surgery, Vascular 05/08/20 Yvonne Estrella MD [address] [place] [address] Physician Surgery, Colorectal 05/16/20 Darlene Rivera PA [address] [place] [address] 05/16/20 Petty Tavarez MD [address] [place] [address] Surgery, Vascular 05/16/20 05/28/21 John Clark MD [address] [place] [address] Resident Endocrinology 02/17/24 Petty Tavarez MD [address] [place] [address] Surgery, Vascular 02/17/24 documented as of this encounter
--- OUTSIDE RECORDS SUMMARY | 2024-11-04 15:05 | XMS_ITS | Clinical Summary ---
Author Organization [facility] Address [address] [place] [address] Care Team Providers Care Forming Mill Operator Name Role Phone Kavita Farias MD Primary Care Provider [phone] Allergies Active Allergy Reactions Criticality Noted Date [...] MEDICARE PPO [facility] Care Teams Forming Mill Operator Relationship Specialty Start Date End Date Kavita Farias MD [address] [place] [address] PCP - General Internal Medicine 10/18/19
--- OUTSIDE RECORDS SUMMARY | 2024-11-04 15:05 | XMS_ITS | Encounter Summary ---
Author Organization [facility] Address [address] [place] [address] Care Team Providers Care Folder Machine Operator Name Role Phone Kavita Farias MD Primary Care Provider [phone] Padmini Mariee MD Unavailable [phone] Petty Tavarez MD Unavailable [phone] Yvonne Estrella MD Unavailable [phone] Darlene Rivera Unavailable [phone] Nehal Snowden PA-C Unavailable [phone] John Clark MD Unavailable [phone] Petty Tavarez MD Unavailable [phone] Reason for Visit * Reason Comments Medication Refill Encounter Details Date Type Department Care Team (Late st Contact Info) Description 10/02/2021 Refill [place] [facility] [address] [facility] [address] [place], [place] [phone] Yvonne Estrella MD 440 [place] [address] Social History Tobacco Use Types Packs/Day Years [...] Upcoming Encounters Date Type Department Care Team ([facility] st Contact Info) Description 05/16/2025 1:15 PM EDT Appointment [facility] Department of Ophthalmology [address] [address] 05/16/2025 1:15 PM EDT Appointment [facility] Department of Ophthalmology [address] [address] Arvin García MD [address] [place] [address] documented as of this encounter Visit Diagnoses Not on filedocumented in this encounter Care Teams Folder Machine Operator Relationship Specialty Start Date End Date Kavita Farias MD [address] [place] [address] PCP - General 06/23/13 Nehal Snowden, PA-C [address] [place] [address] PCP - [employer] Medicare Attributed 10/18/22 01/16/23 Padmini Mariee MD [address] [place] [address] Referring Provider Rheumatology 03/02/18 Petty Tavarez MD [address] [place] [address] Surgery, Vascular 05/08/20 Yvonne Estrella MD [address] [place] [address] Physician Surgery, Colorectal 05/16/20 Darlene Rivera PA [address] [place] [address] 05/16/20 John Clark MD [address] [place] [address] Resident Endocrinology 02/17/24 Petty Tavarez MD [address] [place] [address] Surgery, Vascular 02/17/24 documented as of this encounter
--- OUTSIDE RECORDS SUMMARY | 2024-11-04 15:05 | XMS_ITS | Clinical Summary ---
Author Organization [facility] Address [address] [place] [address] Care Team Providers Care Adjunct Writing Instructor Name Role Phone Kavita Farias MD Primary Care Provider [phone] Padmini Mariee MD Unavailable [phone] Petty Tavarez MD Unavailable [phone] Yvonne Estrella MD Unavailable [phone] Darlene Rivera Unavailable [phone] John Clark MD Unavailable [phone] Petty Tavarez MD Unavailable [phone] Allergies Active Allergy Reactions Criticality Noted [...] (02/15/2020): Added automatically from request for surgery [id number] 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 [...] Description 10/05/2024 3:30 PM EDT Office Visit [facility] Vascular & Endovascular Surgery [address] [place] [address] Sita Diane, PA Personal history of venous thrombosis and embolism (Primary Dx) 10/05/2024 2:30 PM EDT Ancillary Procedure [facility] End[facility] [place] [address] [facility] [address] [place] [address] Sita Diane PA 10/05/2024 Travel 09/05/2024 Orders Only [facility] [place] [address] [facility] [address] [place] [address] Nehal Snowden PA-C 09/05/2024 [facility] Vascular & Endovascular Surgery [place] [address] [facility] [address] [place] [address] Sita Diane PA Personal history of venous thrombosis and embolism 09/04/2024 [facility] Vascular & Endovascular Surgery [place] [address] [facility] [address] [place] [address] Sita Diane PA Personal history of venous thrombosis and embolism 08/25/2024 Orders Only [facility] & Endovascular Surgery [place] [address] [facility] [address] [place] [phone] Sita Diane PA Personal history of venous [...] EDT Appointment [facility] Department of Ophthalmology [address] [address] 05/16/2025 1:15 PM EDT Appointment [facility] Department of Ophthalmology [address] [address] [place]vin García [place] [address] [place] [address] Health Maintenance Due Date Last Done Comments [...] original result was not included. ?? Department: [facility] Vascular Lab ([place]) Patient: [id number] (IDALMIS RAJPUT) ?? Patient Location: [facility] CPT Code: 20308 ICD-9: ?? Referring Physician: Sita Diane Impression [...] Note Nimesh Griffiths MD - 10/05/2024 Department: [facility] Vascular Lab ([place]) Patient: [id number] (IDALMIS RAJPUT) Patient Location: [facility] CPT Code: 93422 ICD-9: Referring Physician: Sita Diane Impression Study [...] Last 3 Months Insurance AETNA MGD MEDICARE AETNA MGD MEDICARE Advance Directives Documents on File Type Date Recorded Patient Carpenter Rough Expl anation Power of Visual Educator-Scan * Full Code (Latest Code Status on File) Date Activated Date Inactivated Comments 03/22/2024 6:08 AM * Full Code Date Activated Date Inactivated Comments 09/02/2021 6:29 AM 03/22/2024 5:53 AM * Full Code Date Activated Date Inactivated Comments 02/15/2020 6:10 PM 09/02/2021 12:47 AM Care Teams Adjunct Writing Instructor Relationship Specialty Start Date End Date Kavita Farias MD [address] [place] [address] PCP - General 06/23/13 Padmini Mariee MD [address] [place] [address] Referring Provider Rheumatology 03/02/18 Petty Tavarez MD [address] [place] [address] Surgery, Vascular 05/08/20 Yvonne Estrella MD [address] [place] [address] Physician Surgery, Colorectal 05/16/20 Darlene Rivera PA [address] [place] [address] 05/16/20 John Clark MD [address] [place] [address] Resident Endocrinology 02/17/24 Petty Tavarez MD [address] [address] Surgery, Vascular 02/17/24
== END 2024-11-04 13:46 | disposition home or self-care (01) ==
LOC: HO.HOSX 13:45
PROVIDERS: Visit Provider Neurological Surgery
DX: M41.9 Scoliosis, unspecified (principal); M41.50 Other secondary scoliosis, site unspecified
CPT/HCPCS: 72110; 99202

== ENCOUNTER 2024-11-04 13:45 | Outpatient (AMB) | payer MEDICARE, SELFPAY ==
--- OUTSIDE RECORDS SUMMARY | 2024-11-04 14:06 | XMS_ITS | Encounter Summary ---
Author Organization [facility] Address [address] [place] [address] Care Team Providers Care Farm Assistant Name Role Phone Kavita Farias MD Primary Care Provider [phone] Padmini Mariee MD Unavailable [phone] Petty Tavarez MD Unavailable [phone] Yvonne Estrella MD Unavailable [phone] Darlene Rivera Unavailable [phone] Petty Tavarez MD Unavailable [phone] Nehal Snowden PA-C Unavailable [phone] John Clark MD Unavailable [phone] Petty Tavarez MD Unavailable Encounter Details Date Type Department Care Team (Late st Contact Info) Description 04/18/2020 Telephone [place] [facility] [address] [place], [place] [phone] Yvonne Estrella MD [address] [place] [address] Social History Tobacco Use Types Packs/Day Years Used Date Smoking Tobacco: Never Smokeless Tobacco: Never Alcohol Use Standard Drinks/Week Comments Yes 0 (1 standard drink = 0.6 oz pur e alcohol) AUDIT-C Answer Date Recorded Frequency of Alcohol Consumption Never 03/02/2018 Average Number of Drinks Not on file 018 Frequency of Binge Drinking Not on file 02/17 Comments No Sex and Gender Information Value Date Recorded Sex Assigned at Female 02/15/2024 10:17 AM EDT Legal Sex Female 9:54 AM EDT Gender Identity Female 02/15/2024 10:17 AM EDT Sexual Orientation Choose not to disclose 2023 10:17 AM EDT COVID-19 Exposure Response Date Recorded In the last month, have you been in contact with someone who was confirmed or suspected to have Coronavirus / COVID-19? No / Unsure 04/02/2020 10:07 AM EDT documented as of this encounter Miscellaneous Notes * Telephone Encounter - Kacy Munguia MA - 04/18/2020 11:15 AM EDT PATIENT CALLED ASKING FOR A REFILL ON THE PRESCRIPTION LACTULOSE. PATIENT STATED SHE WAS IN THE HOSPITAL A MONTH AGO FOR 6 DAYS DUE TO A BLOOD CLOT AND WAS GIVEN THE LACTULOSE. PATIENT SAID MEDICATION ALSO HELPED HER FISSURE. documented in this encounter Plan of Treatment Upcoming Encounters Date Type Department Care Team (Late st Contact Info) Description 05/16/2025 1:15 PM EDT Appointment [facility] Department of Ophthalmology [address] [address] 05/16/2025 1:15 PM EDT Appointment [facility] of Ophthalmology [address] [address] Arvin García MD [address] [place] [address] documented as of this encounter Visit Diagnoses Not on filedocumented in this encounter Care Teams Farm Assistant Relationship Specialty Start Date End Date Kavita Farias MD [address] [place] [address] PCP - General 06/23/13 Nehal Snowden, MARIOC [address] [place] [address] PCP - [employer] Medicare Attributed 10/18/22 01/16/23 Padmini Mariee MD [address] [place] [address] Referring Provider Rheumatology 03/02/18 Petty Tavarez MD [address] [place] [address] Surgery, Vascular 05/08/20 Yvonne Estrella MD [address] [place] [address] Physician Surgery, Colorectal 05/16/20 Darlene Rivera PA [address] [place] [address] 05/16/20 Petty Tavarez MD [address] [place], [place] [phone] Surgery, Vascular 05/16/20 05/28/21 John Clark MD [address] [place] [address] Resident Endocrinology 02/17/24 Petyt Tavarez MD [address] [place] [address] Surgery, Vascular 02/17/24 documented as of this encounter
--- OUTSIDE RECORDS SUMMARY | 2024-11-04 14:06 | XMS_ITS | Clinical Summary ---
Author Organization [facility] Address [address] [place] [address] Care Team Providers Care Associate Field Service Engineer Name Role Phone Kavita Farias MD Primary Care Provider [phone] Padmini Mariee MD Unavailable [phone] Petty Tavarez MD Unavailable [phone] Yvonne Estrella MD Unavailable [phone] Darlene Rivera Unavailable [phone] John Clark MD Unavailable [phone] Petty Tavarez MD Unavailable [phone] Allergies Active Allergy Reactions Criticality Noted Date Comments Carvedilol Unknown/Patient and Family Unable to Define Medium 03/02/2018 Rosuvastatin Other (See Comments) 03/02/2018 HIGH LFT Ketoconazole Anaphylaxis High 11/27/2020 Metoprolol Other (See Comments) 03/02/2018 FATIGUE Lovastatin Other (See Comments) 03/02/2018 HIGH LFT Medications ammonium lactate (LAC-HYDRIN) 12 % cream Apply 1 application topically 2 (two) times a day as needed for dry skin or irritation. Active hydroxychloroqu ine (PLAQUENIL) 200 MG tablet Take 1 tablet (200 mg total) by mouth 2 (two) times a day. Pt takes 1-2 times per day if needed 0 Active doxycycline (VIBRAMYCIN) 100 MG capsule Take 1 capsule (100 mg total) by mouth every morning. 1 Active triamcinolone (KENALOG) 0.1 % cream Apply topically 2 (two) times a day. To affected area(s) Active ciclopirox (LOPROX) 0.77 % cream Apply topically every morning. As directed Active multivitamin Tab tablet Take 1 tablet by mouth every morning. Active levothyroxine (SYNTHROID, LEVOTHROID) 100 MCG tablet Take 112 mcg by mouth daily on an empty stomach. Total dose 112mcg per day 2 Active SF 5000 Plus 1.1 % CreamIndication s:Dental Caries as needed (dental caries). 2 Active alendronate-cho lecalciferol (FOSAMAX PLUS D) 70-2800 MG-UNIT per tablet Take 1 tablet by mouth every 7 days. Take with a full glass of water; do not lie down for the next 30 min. Takes on thursday Active hydrALAZINE (APRESOLINE) 10 MG tablet Take 1 tablet (10 mg total) by mouth 3 (three) times a day. 3 Active losartan-hydroC HLOROthiazide (HYZAAR) 100-12.5 MG per tablet Take 1 tablet by mouth nightly. 4 Active furosemide (LASIX) 20 MG tablet Take 1 tablet (20 mg total) by mouth nightly. If needed can take BID Active diphenhydrAMINE (BENADRYL) 25 mg capsule Take 1 capsule (25 mg total) by mouth nightly as needed for itching. Active calcium carbonate (OS-ABBY 500) 500 mg Tab tablet Take 1 tablet (1,250 mg total) by mouth every morning with breakfast. Active Xarelto 10 MG tabletIndicatio ns:Okay to resume Thursday 9/6 pm dose TAKE ONE (1) TABLET (10 MG TOTAL) BY MOUTH DAILY. 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 04/25/2020 Deep vein thrombosis (DVT) of right lower extrem ity 02/16/2020 Hypokalemia 02/16/2020 HTN (hypertension) 02/16/2020 HLD (hyperlipidemia) 02/16/2020 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 Overview (02/15/2020): Added automatically from request for surgery [id number] 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 stenosis 04/05/2019 Venous stasis of lower extremity 03/18/2019 Sjogren's syndrome with keratoconjunctivitis sic ca 07/08/2018 Venous stasis ulcer of left lower leg with edema of left lower leg 06/24/2018 Blunt trauma of left lower leg 06/17/2018 Elevated rheumatoid factor 03/05/2018 SS-A antibody positive 03/05/2018 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 03/05/2018 Arthritis 01/30/2016 Stroke 01/30/2016 Resolved Problems Problem Noted Date Diagnosed Date Resolved Date Cataract extraction status, left eye 02/15/2024 02/15/2024 Cataract extraction status, right eye 02/15/2024 02/15/2024 Dry eye syndrome of bilateral lacrimal glands 02/15/20 24 02/15/2024 Syncope 09/02/2021 02/15/2024 DVT (deep venous thrombosis) 09/02/2021 02/15/2024 Lower extremity edema 09/02/20212023 Hypothyroidism 02/16/2020 02/15/2024 Phlegmasia cerulea dolens 02/15/2020 Wound of right leg 03/18/2019 Open wound of left lower leg 06/17/2018 02/15/2024 Encounters Date Type Department Care Team Description 10/05/2024 3:30 PM EDT Office Visit [facility] [address] [place] [address] Sita Diane, PA Personal history of venous thrombosis and embolism (Primary Dx) 10/05/2024 2:30 PM EDT Ancillary Procedure [facility] [place] [address] [place] [address] Sita Diane PA 10/05/2024 Travel 09/05/2024 Orders Only [facility] [place] [address] [place] [address] Nehal Snowden PA-C 09/05/2024 [facility] [place] [address] [place] [address] Sita Diane PA Personal history of venous thrombosis and embolism 09/04/2024 [facility] [place] [address] [place] [address] Sita Diane PA Personal history of venous thrombosis and embolism 08/25/2024 Orders Only [facility] [place] [address] [place] [address] Sita Diane PA Personal history of venous thrombosis and embolism (Primary Dx) from Last 3 Months Family History Medical History Relation Name Comments Colon cancer Father Cancer, Bladder Mother Relation Name Status Comments Father Mother Social History Tobacco Use Types Packs/Day Years Used Date Smoking Tobacco: Never Smokeless Tobacco: Never Tobacco Cessation:Counseling Given: Not Answered Alcohol Use Standard Drinks/Week Comments Yes 0 (1 standard drink = 0.6 oz pur e alcohol) 1-2 per week AUDIT-C Answer Date Recorded Q1: How often do you have a drink containing alc ohol? 2-4 times a month 03/04/2024 Q2: How many drinks containi ng alcohol do you have on a typical day when you are drinking? 1 or 2 03/04/2024 Q3: How often do you have si x or more drinks on one occasion? Never 03/04/2024 Comments No Sex and Gender Information Value Date Recorded Sex Assigned at Female 02/15/2024 10:17 AM EDT Legal Sex Female 9:54 AM EDT Gender Identity Female 02/15/2024 10:17 AM EDT Sexual Orientation Choose not to disclose 2023 10:17 AM EDT Last Filed Vital Signs Vital Sign Reading Time Taken Comments Blood Pressure 154/78 10/05/2024 2:50 PM EDT Pulse 84 10/05/2024 2:50 PM EDT Temperature 36.1 ??C (97 ??F) 03/22/2024 9:26 AM EDT Respiratory Rate 19 03/22/2024 11:30 AM EDT Oxygen Saturation 95% 10/05/2024 2:50 PM EDT Inhaled Oxygen Concentration - - Weight 76.2 kg (168 lb) 04/04/2024 2:56 PM EDT Height 160 cm (5' 3 ) 10/05/2024 2:50 PM EDT Body Mass Index 29.76 04/04/2024 2:56 PM EDT Plan of Treatment Upcoming Encounters Date Type Department Care Team (Late st Contact Info) Description 05/16/2025 1:15 PM EDT Appointment [facility] Department of Ophthalmology [address] [address] 05/16/2025 1:15 PM EDT Appointment [facility] Department of Ophthalmology [address] [address] [place]ía [place] [address] [place] [address] Health Maintenance Due Date Last Done Comments DTaP/Tdap/Td Vaccines (1 - Tdap) 1962 Pneumococcal Vaccines 50+ (1 of 2 - PCV) 1962 Zoster (Shingles) Vaccine (1 of 2) 1962 DXA Bone Density (Females,Ages 65 and older) 2008 RSV Vaccine 60 years and older and Patients (1 - 1-dose 75+ series) 2018 Influenza Vaccine 02/18/2024 04/07/2023, , 05/13/2021, Additional history exists COVID-19 Vaccine ( - season) 2024 05/30/2022, 01/23/2022, 06/03/2021, Additional history exists Hepatitis B Vaccines Aged Out No long er eligible based on patient's age to complete this topic Procedures Procedure Name Priority Date/Time Associated Diagnosis Comments VAS VENOUS DUPLEX LEG (DVT)-BILATERAL Routine 10/05/2024 2:39 PM EDT Personal history of venous thrombosis and embolism from Last 3 Months Results * VAS VENOUS DUPLEX LEG (DVT)-BILATERAL (10/05/2024 2:39 PM EDT) Anatomical Region Laterality Modality Ultrasound 10/05/2024 2:30 PM EDT Narrative 10/05/2024 5:49 PM EDT Table formatting from the original result was not included. ?? Department: [facility] ([place]) Patient: [id number] (IDALMIS RAJPUT) ?? Patient Location: [facility] CPT Code: 17639 ICD-9: ?? Referring Physician: Sita Diane Impression Study performed in the reversed Trendelenburg position and/or the standing position. ?? RIGHT : Right lower extremity venous duplex ultrasound exam demonstrates normal Doppler flow with no thrombus seen on herrera scale image. ??Findings are not consistent with the presence of deep vein thrombosis. ?? LEFT : Left lower extremity venous duplex ultrasound exam demonstrates normal Doppler flow with no thrombus seen in herrera scale. ??Findings are not consistent with the presence of deep vein thrombosis. ?? In comparison to the previous exam dated 08-27-23, the study is stable Indications ? Personal History Hx Thrombus/Embolism [Z86.718]. Hx of Right iliac vein stenting Findings: ?? Right ??Phasic ??Compressible Common Femoral Vein ??Yes ??Complete Profunda Femoral Vein ?Complete Proximal femoral vein ?Complete Mid femoral vein ??Yes ??Complete Distal femoral vein ?Complete Popliteal ??Yes ??Complete Posterior Tibial Vein ?Complete Peroneal ?Complete GSV Saphenofemoral junction ??Yes ??Complete Great Saphenous Vein -Thigh Mid ?N/A Gastrocnemius ?Complete Small Saphenous Vein -Calf Proximal ?Complete Left ??Phasic ??Compressible Common Femoral Vein ??Yes ??Complete Profunda Femoral Vein ?Complete Proximal femoral vein ?Complete Mid femoral vein ??Yes ??Complete Distal femoral vein ?Complete Popliteal ??Yes ??Complete Posterior Tibial Vein ?Complete Peroneal ?Complete GSV Saphenofemoral junction ??Yes ??Complete Great Saphenous Vein -Thigh Mid ?N/A Gastrocnemius ?Complete Small Saphenous Vein -Calf Proximal ?N/A ?? Electronically Signed by: Nimesh Griffiths MD, RPVI on 2024-10-05 05:49:45 PM End of Report Procedure Note Nimesh Griffiths MD - 10/05/2024 Department: [facility] ([place]) Patient: [id number] (IDALMIS RAJPUT) Patient Location: [facility] CPT Code: 95108 ICD-9: Referring Physician: Sita Diane Impression Study performed in the reversed Trendelenburg position and/or the standingposition. RIGHT : Right lower extremity venous duplex ultrasound exam demonstratesnormal Doppler flow with no thrombus seen on herrera scale image. Findingsare not consistent with the presence of deep vein thrombosis. LEFT : Left lower extremity venous duplex ultrasound exam demonstratesnormal Doppler flow with no thrombus seen in herrera scale. Findings are notconsistent with the presence of deep vein thrombosis. In comparison to the previous exam dated 08-27-23, the study is stable Indications Personal History Hx Thrombus/Embolism [Z86.718]. Hx of Right iliac vein stenting Findings: Right Phasic Compressible Common Femoral Vein Yes Complete Profunda Femoral Vein Complete Proximal femoral vein Complete Mid femoral vein Yes Complete Distal femoral vein Complete Popliteal Yes Complete Posterior Tibial Vein Complete Peroneal Complete GSV Saphenofemoral junction Yes Complete Great Saphenous Vein -Thigh Mid N/A Gastrocnemius Complete Small Saphenous Vein -Calf Proximal Complete Left Phasic Compressible Common Femoral Vein Yes Complete Profunda Femoral Vein Complete Proximal femoral vein Complete Mid femoral vein Yes Complete Distal femoral vein Complete Popliteal Yes Complete Posterior Tibial Vein Complete Peroneal Complete GSV Saphenofemoral junction Yes Complete Great Saphenous Vein -Thigh Mid N/A Gastrocnemius Complete Small Saphenous Vein -Calf Proximal N/A Electronically Signed by: Nimesh Griffiths MD, RPVI on :49:45 PM End of Report [facility] ORDERABLES Fin al Result from Last 3 Months Insurance [employer] [place] MEDICARE * Guarantor: Idalmis Rajput Account Type Relation to Patient Date of Phone Billing Address Personal/Family Self 1945 [address] [facility] [address] [place] [address] [employer] MEDICARE * Guarantor: Idalmis Rajput Account Type Relation to Patient Date of Phone Billing Address Personal/Family Self 1945 [address] [facility] [address] [place] [address] Advance Directives Documents on File Type Date Recorded Patient Swimmer Expl anation Power of Diversional Therapist'S Assistant-Scan * Full Code (Latest Code Status on File) Date Activated Date Inactivated Comments 03/22/2024 6:08 AM * Full Code Date Activated Date Inactivated Comments 09/02/2021 6:29 AM 03/22/2024 5:53 AM * Full Code Date Activated Date Inactivated Comments 02/15/2020 6:10 PM 09/02/2021 12:47 AM Care Teams Associate Field Service Engineer Relationship Specialty Start Date End Date Kavita Farias MD [address] [place] [address] PCP - General 06/23/13 Padmini Mariee MD [address] [place] [address] Referring Provider Rheumatology 03/02/18 Petty Tavarez MD [address] [place] [address] Surgery, Vascular 05/08/20 Yvonne Estrella MD [address] [place] [address] Physician Surgery, Colorectal 05/16/20 Darlene Rivera PA [address] [place] [address] 05/16/20 John Clark MD [address] [place] [address] Resident Endocrinology 02/17/24 Petty Tavarez MD [address] [place] [address] [address] Surgery, Vascular 02/17/24
--- OUTSIDE RECORDS SUMMARY | 2024-11-04 14:06 | XMS_ITS | Encounter Summary ---
Author Organization [facility] Address [address] [place] [address] Care Team Providers Care Mill Dresser Name Role Phone Kavita Farias MD Primary Care Provider [phone] Padmini Mariee MD Unavailable [phone] Petty Tavarez MD Unavailable [phone] Yvonne Estrella MD Unavailable [phone] Darlene Rivera Unavailable [phone] Petty Tavarez MD Unavailable [phone] Nehal Snowden PA-C Unavailable [phone] John Clark MD Unavailable [phone] Petty Tavarez MD Unavailable [phone] Reason for Visit * Reason Comments Medication Refill Encounter Details Date Type Department Care Team (Late st Contact Info) Description 08/09/2020 Refill [place] [facility] [address] [facility] [address] [place] [address] Yvonne Estrella MD [address] [place] [address] Chronic idiopathic constipation Social History Tobacco Use Types Packs/Day Years [...] not to disclose 2023 10:17 AM EDT documented as of this encounter Plan of Treatment Upcoming Encounters Date Type Department Care Team (Late st Contact Info) Description 05/16/2025 1:15 PM EDT Appointment [facility] Department of Ophthalmology [place] [address] [place] [address] 05/16/2025 1:15 PM EDT Appointment [facility] Department of Ophthalmology [place] [address] [place] [place] [address] [place]vin García [place] [address] [place] [address] documented as of this encounter Visit Diagnoses Diagnosis Chronic idiopathic constipation Unspecified constipation documented in this encounter Care Teams Mill Dresser Relationship Specialty Start Date End Date Kavita Farias MD [address] [place] [address] PCP - General 06/23/13 Nehal Snowden, PA-C [address] [address] PCP - [employer] Medicare Attributed 10/18/22 01/16/23 Padmini Mariee MD [address] [place] [address] Referring Provider Rheumatology 03/02/18 Petty Tavarez MD [address] [address] Surgery, Vascular 05/08/20 Yvonne Estrella MD [address] [place] [address] Physician Surgery, Colorectal 05/16/20 Darlene Rivera PA [address] [place] [address] 05/16/20 Petty Tavarez MD [address] [place] [address] Surgery, Vascular 05/16/20 05/28/21 John Clark MD [address] [place] [address] Resident Endocrinology 02/17/24 Petty Tavarez MD [address] [place] [address] Surgery, Vascular 02/17/24 documented as of this encounter
--- OUTSIDE RECORDS SUMMARY | 2024-11-04 14:07 | XMS_ITS ---
Author Organization [facility] Address [address] [place] [address] Care Team Providers Care Pvc Loader Name Role Phone Dashawn Kingsley Primary Care Provider Padmini Mariee Unavailable [phone] Results Component Value Reference Range Notes MRI LUMBAR SPINE W/O CONTRAS T Reviewed date:10/18/2024 11:37:42 AM Interpretation:see report Performing Lab: Notes/Report: [facility] [address] [place] [address] MRI/MRA REPORT : [id number] Patient: TRICIA HURTADO Order/ Date of : 1945 Ordering Provider: DASHAWN KINGSLEY MD Age/Gender: 79/F Medical Record: [id number] Reason for visit/admission: STENOSIS MULT LEVELS CPT code: 23790 DATE OF SERVICE: 10/10/2024 EXAM DESCRIPTION: MRI LUMBAR SPINE W/O CONTRAST CLINICAL INFORMATION: MULTI LEVEL STENOSIS COMPARISON: MRI dated 07/08/2021. CT scan dated 02/24/2022. TECHNIQUE: MRI of the lumbar spine was performed without contrast on a 3 liz MRI unit. FINDINGS: The examination demonstrates a normal signal appearance to the visualized portions of the distal spinal cord which terminates in a normal position. No intradural abnormalities are identified. There is a transitional segment seen at the lumbosacral junction with sacralization of the L5 segment. There is a rudimentary disc space present at the L5-S1 level. The labeling of the lumbar levels for this examination is similar when compared to the prior study of 07/08/2021. There is a convex right thoracolumbar scoliosis. There is right lateral subluxation of L3 with respect to L4. The vertebral body heights are normal. There are signal changes seen in the endplates adjacent to the L2-3 and L3-4 levels felt to be related to the degenerative disc disease present at these levels. No suspicious osseous signal abnormalities are seen. L1-2 level: There is moderate loss of intervertebral disc space height. There is a mild broad-based posterior bulge of the annulus causing a mild impression on the thecal sac anteriorly. L2-3 level: There is severe loss of intervertebral disc space height. There is a broad-based posterior disc osteophyte complex present with a small superimposed posterior disc protrusion seen centrally causing a mild impression on the thecal sac anteriorly. Mild left- sided foraminal narrowing is present. L3-4 level: There is severe loss of intervertebral disc space height. There is a broad-based posterior disc osteophyte complex present causing an impression on the thecal sac anteriorly. Facet arthropathy is seen bilaterally. Foraminal narrowing is seen bilaterally. L4-5 level: There is desiccation of the intervertebral disc. The intervertebral disc space height is maintained. Facet arthropathy is seen on the right. L5-S1 level: There is sacralization of the L5 segment with a rudimentary disc space present. No spinal or foraminal narrowing is seen. No other findings are identified on the examination. IMPRESSION: Transitional segment at the lumbosacral junction with sacralization of the L5 segment and a rudimentary disc space present at the L5-S1 level. Convex right thoracolumbar scoliosis. Right lateral subluxation of L3 with respect L4. Degenerative disc disease most severe at the L2-3 and L3-4 levels. Broad-based posterior disc osteophyte complex with a small superimposed posterior disc protrusion seen centrally at the L2-3 level. Mild broad-based posterior disc osteophyte complex present at the L3-4 level. Mild spinal stenosis at the L3-4 level. Foraminal narrowing at the L2-3 and L3-4 levels as described above. The findings on this examination are similar when compared to the prior studies. Dictated by: GABRIELLE MADISON MD, 10/10/24 1201 Electronically signed by GABRIELLE MADISON MD 10/10/24 1212 CC: DASHAWN KINGSLEY MD EYS=[id number] SRI=[id number] ORG=[facility] EQK=[id number] GJJ=[id number] ORG=[facility] ZPQ=[id number] LGV=[id number] ORG=[facility] CVW=[id number] BDO=[id number] ORG=[address] [address] MRI/MRA REPORT : [id number] Patient: YAS HURTADO Order/ Date of : 08/18 Ordering Provider: DASHAWN KINGSLEY MD Age/Gender: 79/F Medical Record: [id number] Reason for visit/adm ission: STENOSIS MULT LEVELS CPT code: 25617 DATE OF SERVICE: 10/10/2024 EXAM DESCRIPTION: MRI LUMBAR SPINE W/O CONTRAST CLINICAL INFORMATION: MULTI LEVEL STENOSIS COMPARISON: MRI dated 07/08/[address] scan dated 02/24/2022. TECHNIQUE: MRI of the lumbar sp ine was performed without contrast on a 3 liz MRI unit. FINDINGS: The examination demo nstrates a normal signal appearance to the visualized portions of the distal spinal cord which te rminates in a normal position. No intradural abnormalities are identified. There is a transitio nal segment seen at the lumbosacral junction with sacralization of the L5 segment. There is a rudimentary disc space present at the L5-S1 level. The labeling of the lumbar levels for this exam ination is similar when compared to the prior study of 07/08/2021. There is a convex right thoraco lumbar scoliosis. There is right lateral subluxation of L3 with respect to L4. The vertebral body h eights are normal. There are signal changes seen in the endplates adjacent to the L2-3 and L3-4 le vels felt to be related to the degenerative disc disease present at these levels. No suspiciou s osseous signal abnormalities are seen. L1-2 level: There is moderate loss of intervertebral disc space height. There is a mild broad-based posterior bulge of t he annulus causing a mild impression on the thecal sac anteriorly. L2-3 level: There is severe loss of intervertebral disc space height. There is a broad-based posterior disc osteo phyte complex present with a small superimposed posterior disc protrusion seen centrally causing a mild impression on the thecal sac anteriorly. Mild left-sided foraminal narrowing is present. L3-4 level: There is severe loss of intervertebral disc space height. There is a broad-based posterior disc osteo phyte complex present causing an impression on the thecal sac anteriorly. Facet arthropathy is seen bilaterally. Foraminal narrowing is seen bilaterally. L4-5 level: There is desiccation of the intervertebral disc. The intervertebral disc space height is maintained. Facet arthropathy is seen on the right. L5-S1 level: There i s sacralization of the L5 segment with a rudimentary disc space present. No spinal or foraminal narrowing is seen. No other findings ar e identified on the examination. IMPRESSION: Transitional segment at the lumbosacral junction with sacralization of the L5 segment and a rudimentary disc spa ce present at the L5-S1 level. Convex right thoracolumbar scoliosis. Right lateral subluxation of L3 with respect L4. Degenerative disc disease most severe at the L2-3 and L3-4 levels. Broad-b ased posterior disc osteophyte complex with a small superimposed posterior disc protrusion seen cent rally at the L2-3 level. Mild broad-based posterior disc osteophyte complex present at the L3-4 level. Mild spinal stenosis at the L3-4 level. Foraminal narrowing at the L2-3 and L3-4 levels as d escribed above. The findings on this examination are similar when compared to the prior studies. Dictated by: GABRIELLE MADISON MD, 10/10/24 1201 Electronically damien d by GABRIELLE MADISON MD 10/10/24 1212 CC: DASHAWN KINGSLEY MD LQN=[id number] ACC=0 [id number] ORG=[facility] FCY=[id number] ACC=0 [id number] ORG=BR TGT=[id number] ACC=0 [id number] ORG=BR NHY=[id number] ACC=0 [id number] ORG=BRC REASON FOR VISIT MRI Social History Sex Assigned At : Social History Observation Description Sex Assigned At Female Problems Problem Type SNOMED Code ICD Code Onset Dates Problem Status W/U Status Risk Notes Problem Lumbar pain (232212379) Lumbar pain (M54.50) Active confirmed Encounters Encounter Location Date Provider Diagnosis [facility] [address] [place] [address] [place], [place] [id number] 09/30/2024 Dashawn Kingsley Lumbar pain M54.50 ; 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 and Spinal stenosis of lumbar region at multiple levels M48.061 Assessments Encounter Date Diagnosis (ICD Code) Assessment Notes Treatment Notes Treatment Clinical Notes Section Notes 09/30/2024 Lumbar pain (ICD-10 - M54.50) 09/30/2024 Foraminal stenosis of lumbar region (ICD-10 - M99.83) 09/30/2024 Spinal stenosis of lumbar region at multiple levels (ICD-10 - M48.061) Plan Of Treatment Next Appt Details Provider Name:Padmini Mariee , 11/08/2024 12:30:00 PM, [address] [place] [address], [phone], Provider Name:John Clark, 04/11/2025 01:00:00 PM, [address] [place] [address], [phone], Progress Notes * TRICIA HURTADODOB:1945 (79 yo F)Acc No.[id number]:09/30/2024 Patient:?TRICIA HURTADO :1945???Age:79 Y???Sex:Female Address[address] [address] Subjective: * Chief Complaints: * ???MRI * Medical History:? * Surgical History:? * Hospitalization/Major Diagno stic Procedure:? * Medications:? Objective: * Vitals:? * Physical Examination:? Assessment: * Assessment: 1.?Lumbar pain - M54.50 (Manju plata)???2.?Foraminal stenosis of lumbar region - M99.83???3.?Spinal stenosis of lumbar region at multiple levels - M48.061??? Plan: * Treatment: 2.?Foraminal stenosis of lumbar region?Imaging: MRI LUMBAR SPINE W/O CONTRAST* foraminal stenosis at multip le levels, spinal stenosis at L1-2-3 -4, post fusion changes at L5-V1McuylekAlyce Tate 10/04/2024 09:22:41 AM EDT > Authorization Number: [id number] valid 10/04/24 - 04/02/25 ; CPT 99791 at [facility] 3.?Spinal stenosis of lumbar region at multiple levels?Imaging: MRI LUMBAR SPINE W/O CONTRAST* foraminal stenosis at multip le levels, spinal stenosis at L1-2-3 -4, post fusion changes at L5-Z6XwsqchbAlyce Tate 10/04/2024 09:22:41 AM EDT > Authorization Number: [id number] valid 10/04/24 - 04/02/25 ; CPT 94397 at [facility] * Procedure Codes:? * true * Date:? Generated for Claudette ladd/Tanner/eTransmitting on:?11/04/2024 02:07 PM EDT
--- OUTSIDE RECORDS SUMMARY | 2024-11-04 14:07 | XMS_ITS | Clinical Summary ---
Author Organization [facility] Address [address] [place] [address] Care Team Providers Care Head Holder Name Role Phone Kavita Farias MD Primary Care Provider [phone] Allergies Active Allergy Reactions Criticality Noted Date Comments Carvedilol Other (see comments) Medium 03/02/2018 Lovastatin Other (see comments) 03/02/2018 HIGH LFT Metoprolol Other (see comments) 03/02/2018 FATIGUE Rosuvastatin Other (see comments) 03/02/2018 HIGH LFT Medications ciclopirox-skin cleanser no.40 0.77 % combo pack APPLY TWICE DAILY TO AFFECTED AREAS ON FEET FOR TWO WEEKS THEN DAILY 9 Active Synthroid 88 mcg tablet 0 Active MAGNESIUM OXIDE ORAL Take 1 tablet by mouth. Active sulfaSALAzine (AZULFIDINE) 500 mg tablet 0 Active triamcinolone (KENALOG) 0.1 % cream APPLY EVERY DAY TO NON OPEN SKIN ON LOWER LEGS FOLLOWED BY AMMONIUM LACTATE 0 Active amLODIPine-mark zepriL (LOTREL) 5-40 mg per capsule amlodipine 5 mg-benazepril 40 mg capsule Active cevimeline (EVOXAC) 30 mg capsule TAKE ONE CAPSULE THREE TIMES DAILY BY MOUTH 0 Active ezetimibe (ZETIA) 10 mg tablet ezetimibe 10 mg tablet Active ketotifen (ZADITOR) 0.025 % (0.035 %) ophthalmic solution 1 drop. Active melatonin tablet Take 3 mg by mouth daily. Active metoprolol tartrate (LOPRESSOR) 25 mg tablet metoprolol tartrate 25 mg tablet Active Immunizations Immunization Administration Dates Next Due COVID-19 mRNA (PFIZER) 09/10/2020,08/21/2020 Family History Relation Status Comments Father Mother Social History Tobacco Use Types Packs/Day Years Used Date Smoking Tobacco: Never Smokeless Tobacco: Never Alcohol Use Standard Drinks/Week Comments Yes 0 (1 standard drink = 0.6 oz pur e alcohol) social Comments Unknown Sex and Gender Information Value Date Recorded Sex Assigned at Not on file Legal Sex Female 5:51 AM EST Gender Identity Not on file Sexual Orientation Not on file Last Filed Vital Signs Vital Sign Reading Time Taken Comments Blood Pressure 129/78 01/02/2020 1:51 PM EDT Pulse 96 01/02/2020 1:51 PM EDT Temperature - - Respiratory Rate - - Oxygen Saturation - - Inhaled Oxygen Concentration - - Weight 79.4 kg (175 lb) 01/23/2020 2:12 PM EDT Height 160 cm (5' 3 ) 01/23/2020 2:12 PM EDT Body Mass Index 31 01/23/2020 2:12 PM EDT Plan of Treatment Health Maintenance Due Date Last Done Comments Bone Density Screening 1945 HIV Screening 1945 DTaP,Tdap,and Td Vaccines (1 - Tdap) 1961 Pneumococcal Vaccine, 50+ Years (1 of 1 - PCV) 1993 Zoster Vaccines (1 of 2) 1993 COVID-19 Vaccine (3 - 2023-2 5 season) 2024 09/10/2020, 08/21/2020 Influenza Vaccine (Season Ended) 2025 HPV Vaccines Aged Out No longer eligi ble based on patient's age to complete this topic Hepatitis A Vaccines Aged Out No long er eligible based on patient's age to complete this topic Meningococcal Vaccine Aged Out No zackary kailey eligible based on patient's age to complete this topic Insurance [employer] MEDICARE PPO [facility] Care Teams Head Holder Relationship Specialty Start Date End Date Kavita Farias MD [address] [place] [address] PCP - General Internal Medicine 10/18/19
--- OUTSIDE RECORDS SUMMARY | 2024-11-04 14:07 | XMS_ITS | Encounter Summary ---
Author Organization [facility] Address [address] [place] [address] Care Team Providers Care Meter Reader Name Role Phone Kavita Farias MD Primary Care Provider [phone] Padmini Mariee MD Unavailable [phone] Petty Tavarez MD Unavailable [phone] Yvonne Estrella MD Unavailable [phone] Darlene Rivera Unavailable [phone] Nehal Snowden PA-C Unavailable [phone] John Clark MD Unavailable [phone] Petty Tavarez MD Unavailable [phone] Reason for Visit * Reason Comments Medication Refill Encounter Details Date Type Department Care Team (Late st Contact Info) Description 09/17/2021 Refill [facility] [place] [facility] [address] [facility] [place], [place] [phone] Yvonne Estrella MD [address] [place] [address] Social History Tobacco Use Types Packs/Day Years [...] have Coronavirus / COVID-19? No / Unsure 09/02/2021 1:07 AM EST documented as of this encounter Plan of Treatment Upcoming Encounters Date Type Department Care Team ([facility] st Contact Info) Description 05/16/2025 1:15 PM EDT Appointment [facility] Department of Ophthalmology [address] [address] 05/16/2025 1:15 PM EDT Appointment [facility] Department of Ophthalmology [address] [address] Arvin García MD [address] [place] [address] documented as of this encounter Visit Diagnoses Not on filedocumented in this encounter Care Teams Meter Reader Relationship Specialty Start Date End Date Kavita Farias MD [address] [place] [address] PCP - General 06/23/13 Nehal Snowden, PA-C [address] [place] [address] PCP - [employer] Medicare Attributed 10/18/22 01/16/23 Padmini Mariee MD [address] [place] [address] Referring Provider Rheumatology 03/02/18 Petty Tavarez MD [address] [place] [address] Surgery, Vascular 05/08/20 Yvonne Estrella MD [address] [place] [address] Physician Surgery, Colorectal 05/16/20 Darlene Rivera PA [address] [place] [address] 05/16/20 John Clark MD [address] [place] [address] Resident Endocrinology 02/17/24 Petty Tavarez MD [address] [place] [address] Surgery, Vascular 02/17/24 documented as of this encounter
--- OUTSIDE RECORDS SUMMARY | 2024-11-04 14:07 | XMS_ITS ---
Author Organization [facility] Address [address] [place] [address] Care Team Providers Care State Inspector Name Role Phone Kavita Farias Primary Care Provider Padmini Mariee Unavailable [phone] Social History Sex Assigned At : Social History Observation Description Sex Assigned At Female Encounters Encounter Location Date Provider Diagnosis [facility] [address] [facility] [address] [place] [phone] 10/18/2024 Kavita Farias Plan Of Treatment Next Appt Details Provider Name:Padmini Mariee , 11/08/2024 12:30:00 PM, [address] [place] [address], [phone], Provider Name:John Clark, 04/11/2025 01:00:00 PM, [address] [place] [address], [phone], Progress Notes * TRICIA HURTADODOB:1945 (79 yo F)Acc No.[id number]:10/18/2024 Patient:?TRICIA HURTADO :1945???Age:79 Y???Sex:Female Address:[address], [place] [address] * true * Date:? Generated for Claudette ladd/Tanner/eTransmitting on:?11/04/2024 02:07 PM EDT
--- OUTSIDE RECORDS SUMMARY | 2024-11-04 14:07 | XMS_ITS | Encounter Summary ---
Author Organization [facility] Address [address] [place] [address] Care Team Providers Care Hardener Helper Name Role Phone Kavita Farias MD Primary Care Provider [phone] Padmini Mariee MD Unavailable [phone] Petty Tavarez MD Unavailable [phone] Yvonne Estrella MD Unavailable [phone] Darlene Rivera Unavailable [phone] Nehal Snowden PA-C Unavailable [phone] John Clark MD Unavailable [phone] Petty Tavarez MD Unavailable [phone] Reason for Visit * Reason Comments Medication Refill Encounter Details Date Type Department Care Team (Late st Contact Info) Description 08/24/2021 Refill [facility] [address] [facility] [address] [place], [place] [phone] Yvonne Estrella MD [address] [place] [address] Chronic idiopathic constipation Social History Tobacco Use [...] Info) Description 05/16/2025 1:15 PM EDT Appointment [facility] Department of Ophthalmology [address] [address] 05/16/2025 1:15 PM EDT Appointment [facility] Department of Ophthalmology [address] [address] Arvin García MD [address] [place] [address] documented as of this encounter Visit Diagnoses Diagnosis Chronic idiopathic constipation Unspecified constipation documented in this encounter Care Teams Hardener Helper Relationship Specialty Start Date End Date Kavita Farias MD [address] [place] [address] PCP - General 06/23/13 Nehal Snowden, PA-C [address] [place], [place] [phone] PCP - [employer] Medicare Attributed 10/18/22 01/16/23 Padmini Mariee MD [address] [place] [address] Referring Provider Rheumatology 03/02/18 Petty Tavarez MD [address] [place] [address] Surgery, Vascular 05/08/20 Yvonne Estrella MD [address] [place] [address] Physician Surgery, Colorectal 05/16/20 Darlene Rivera PA [address] [place] [address] 05/16/20 John Clark MD [address] [place] [address] Resident Endocrinology 02/17/24 Petty Tavarez MD [address] [place] [address] Surgery, Vascular 02/17/24 documented as of this encounter
--- OUTSIDE RECORDS SUMMARY | 2024-11-04 14:07 | XMS_ITS | Encounter Summary ---
Author Organization [facility] Address [address] [place] [address] Care Team Providers Care Lube Worker Name Role Phone Kavita Farias MD Primary Care Provider [phone] Padmini Mariee MD Unavailable [phone] Petty Tavarez MD Unavailable [phone] Yvonne Estrella MD Unavailable [phone] Darlene Rivera Unavailable [phone] Petty Tavarez MD Unavailable [phone] Nehal Snowden PA-C Unavailable [phone] John Clark MD Unavailable [phone] Petty Tavarez MD Unavailable Encounter Details Date Type Department Care Team (Late st Contact Info) Description 03/21/2021 Scanned Document [facility] Vascular & Endovascular Surgery [place] [address] [facility] [address] [place] [phone] Sita Diane PA [address] [facility] [address] [place] [address] [place] [address] Social History Tobacco Use Types Packs/Day Years [...] EDT Appointment [facility] Department of Ophthalmology [address] [address] 05/16/2025 1:15 PM EDT Appointment [facility] Department of Ophthalmology [address] [address] Arvin García MD [address] [place] [address] documented as of this encounter Visit Diagnoses Not on filedocumented in this encounter Care Teams Lube Worker Relationship Specialty Start Date End Date Kavita Farias MD [address] [place] [address] PCP - General 06/23/13 Nehal Snowden, PA-C [address] [place] [address] PCP - [employer] Medicare Attributed 10/18/22 01/16/23 Padmini Mariee MD [address] [place] [address] Referring Provider Rheumatology 03/02/18 Petty Tavarez MD [address] [place] [address] Surgery, Vascular 05/08/20 Yvonne Estrella MD [address] [place] [address] Physician Surgery, Colorectal 05/16/20 Darlene Rivera PA [address] [place] [address] 05/16/20 Petty Tavarez MD [address] [place] [address] Surgery, Vascular 05/16/20 05/28/21 John Clark MD [address] [place] [address] Resident Endocrinology 02/17/24 Petty Tavarze MD [address] [place] [address] Surgery, Vascular 02/17/24 documented as of this encounter
--- OUTSIDE RECORDS SUMMARY | 2024-11-04 14:07 | XMS_ITS | Clinical Summary ---
Author Organization [facility] Address [address] [place] [address] Care Team Providers Care Laboratory Sampler Name Role Phone Unavailable Primary Care Provider Unavailabl e Social History Tobacco Use Types Packs/Day Years Used Date Smoking Tobacco: Never Assessed Sex and Gender Information Value Date Recorded Sex Assigned at Not on file Gender Identity Not on file Sexual Orientation Not on file Plan of Treatment Health Maintenance Due Date Last Done Comments COVID-19 Vaccine (#1) 02/16/1946 Depression Screening 1955 Preventative Health Evaluation 1961 DTap / Tdap / Td (1 - Tdap) 1962 Shingrix-Zoster Vaccine (1 of 2) 1993 Fall Risk Assessment 2008 Osteoporosis Screening (DEXA Scan) 2008 Pneumococcal Vaccine (1 of 1 - PCV) 2008 RSV Adult > 60+ Yrs or Pregn ant (1 - 1-dose 75+ series) 2018 Influenza Vaccine (#1) 2024 Hepatitis B Vaccines Aged Out No long er eligible based on patient's age to complete this topic RSV Ped < 20 months Aged Out No longe r eligible based on patient's age to complete this topic
--- OUTSIDE RECORDS SUMMARY | 2024-11-04 14:07 | XMS_ITS | Encounter Summary ---
Author Organization [facility] Address [address] [place] [address] Care Team Providers Care Ship Pilot Dispatcher Name Role Phone Kavita Farias MD Primary Care Provider [phone] Padmini Mariee MD Unavailable Petty Tavarez MD Unavailable [phone] Yvonne Estrella MD Unavailable [phone] Darlene Rivera Unavailable [phone] Nehal Snowden PA-C Unavailable [phone] John Clark MD Unavailable [phone] Petty Tavarez MD Unavailable [phone] Encounter Details Date Type Department Care Team (Late st Contact Info) Description 09/17/2021 Scanned Document [facility] Vascular & Endovascular Surgery [address] [place] [phone] Sita Diane PA [address] [facility] [address] [place] [address] Social History Tobacco Use Types Packs/Day Years [...] Info) Description 05/16/2025 1:15 PM EDT Appointment [facility] Department of Ophthalmology [address] [address] 05/16/2025 1:15 PM EDT Appointment [facility] Department of Ophthalmology [address] [address] Arvin García MD [address] [place] [address] documented as of this encounter Visit Diagnoses Not on filedocumented in this encounter Care Teams Ship Pilot Dispatcher Relationship Specialty Start Date End Date Kavita Farias MD [address] [place] [address] PCP - General 06/23/13 Nehal Snowden, PA-C [address] [place], [place] [id number] PCP - [employer] Medicare Attributed 10/18/22 01/16/23 Padmini Mariee MD [address] [place] [address] Referring Provider Rheumatology 03/02/18 Petty Tavarez MD [address] [place] [address] Surgery, Vascular 05/08/20 Yvonne Estrella MD [address] [place] [address] Physician Surgery, Colorectal 05/16/20 Darlene Rivera PA 4 [place] [address] 05/16/20 John Clark MD [address] [place] [address] Resident Endocrinology 02/17/24 Petty Tavarez MD [address] [place] [address] Surgery, Vascular 02/17/24 documented as of this encounter
--- OUTSIDE RECORDS SUMMARY | 2024-11-04 14:07 | XMS_ITS | Encounter Summary ---
Author Organization [facility] Address [address] [place] [address] Care Team Providers Care Rehabilitation Services Coordinator Name Role Phone Kavita Farias MD Primary Care Provider [phone] Padmini Mariee MD Unavailable [phone] Petty Tavarez MD Unavailable [phone] Yvonne Estrella MD Unavailable [phone] Darlene Rivera Unavailable [phone] Nehal Snowden PA-C Unavailable [phone] John Clark MD Unavailable [phone] Petty Tavarez MD Unavailable [phone] Reason for Visit * Reason Comments Medication Refill Encounter Details Date Type Department Care Team (Late st Contact Info) Description 06/03/2021 Refill [facility] [place] [facility] [address] [facility] [address] [address] [place], [place] [phone] Yvonne Estrella MD [address] [place] [address] Chronic idiopathic constipation Social History Tobacco Use [...] have Coronavirus / COVID-19? No / Unsure 05/29/2021 10:56 AM EST documented as of this encounter Plan of Treatment Upcoming Encounters Date Type Department Care Team (Late st Contact Info) Description 05/16/2025 1:15 PM EDT Appointment [facility] Department of Ophthalmology [address] [address] 05/16/2025 1:15 PM EDT Appointment [facility] [place] Department of Ophthalmology [address] [address] Arvin García MD [address] [place] [address] documented as of this encounter Visit Diagnoses Diagnosis Chronic idiopathic constipation Unspecified constipation documented in this encounter Care Teams Rehabilitation Services Coordinator Relationship Specialty Start Date End Date Kavita Farias MD [address] [place] [address] PCP - General 06/23/13 Nehal Snowden PA-C [address] [place] [address] PCP - [employer] Medicare Attributed 10/18/22 01/16/23 Padmini Mariee MD [address] [place] [address] Referring Provider Rheumatology 03/02/18 Petty Tavarez MD [address] [place], [place] [address] (Work) Surgery, Vascular 05/08/20 Yvonne Estrella MD [address] [place] [address] Physician Surgery, Colorectal 05/16/20 Darlene Rivera PA 4 [place] [address] 05/16/20 John Clark MD [address] [place] [address] Resident Endocrinology 02/17/24 Petty Tavarez MD [address] [place] [address] Surgery, Vascular 02/17/24 documented as of this encounter
--- OUTSIDE RECORDS SUMMARY | 2024-11-04 14:07 | XMS_ITS | Encounter Summary ---
Author Organization [facility] Address [address] [place] [address] Care Team Providers Care Draughtsman Name Role Phone Kavita Farias MD Primary Care Provider [phone] Padmini Mariee MD Unavailable [phone] Petty Tavarez MD Unavailable [phone] Yvonne Estrella MD Unavailable [phone] Darlene Rivera Unavailable [phone] Petty Tavarez MD Unavailable [phone] Nehal Snowden PA-C Unavailable [phone] John Clark MD Unavailable [phone] Petty Tavarez MD Unavailable [phone] Encounter Details Date Type Department Care Team (Late st Contact Info) Description 01/31/2021 Scanned Document [facility] Vascular & Endovascular Surgery [place] [address] [facility] [address] [place] [phone] Sita Diane PA [address] [facility] [address] [place] [address] Social History Tobacco Use Types Packs/Day Years [...] have Coronavirus / COVID-19? No / Unsure 01/10/2021 12:39 PM EDT documented as of this encounter Plan of Treatment Upcoming Encounters Date Type Department Care Team (Late st Contact Info) Description 05/16/2025 1:15 PM EDT Appointment [facility] Department of Ophthalmology [address] [address] 05/16/2025 1:15 PM EDT Appointment [facility] Department of Ophthalmology [address] [address] Arvin García MD [address] [place] [address] documented as of this encounter Visit Diagnoses Not on filedocumented in this encounter Care Teams Draughtsman Relationship Specialty Start Date End Date Kavita Farias MD [address] [place] [address] PCP - General 06/23/13 Nehal Snowden PA-C [address] [place] [address] PCP - [employer] Medicare Attributed 10/18/22 01/16/23 Padmini Mariee MD [address] [place] [address] Referring Provider Rheumatology 03/02/18 Petty Tavarez MD [address] [place] [address] Surgery, Vascular 05/08/20 Yvonne Estrella MD [address] [place] [address] Physician Surgery, Colorectal 05/16/20 Darlene Rivera PA 4 [place] [address] 05/16/20 Petty Tavarez MD [address] [place] [address] Surgery, Vascular 05/16/20 05/28/21 John Clark MD [address] [place] [address] Resident Endocrinology 02/17/24 Petty Tavarez MD [address] [place] [address] Surgery, Vascular 02/17/24 documented as of this encounter
--- OUTSIDE RECORDS SUMMARY | 2024-11-04 14:07 | XMS_ITS | Encounter Summary ---
Author Organization [facility] Address [address] [place] [address] Care Team Providers Care Optical Laboratory Technician Name Role Phone Kavita Farias MD Primary Care Provider [phone] Padmini Mariee MD Unavailable [phone] Petty Tavarez MD Unavailable [phone] Yvonne Estrella MD Unavailable [phone] Darlene Rivera Unavailable [phone] Nehal Snowden PA-C Unavailable [phone] John Clark MD Unavailable [phone] Petty Tavarez MD Unavailable [phone] Reason for Visit * Reason Comments Medication Refill Encounter Details Date Type Department Care Team (Late st Contact Info) Description 10/02/2021 Refill [place] [facility] [address] [facility] [address] [place], [place] [phone] Yvonne Estrella MD 440 [place] [address] Social History Tobacco Use Types Packs/Day Years [...] Upcoming Encounters Date Type Department Care Team ([facility] st Contact Info) Description 05/16/2025 1:15 PM EDT Appointment [facility] Department of Ophthalmology [address] [address] 05/16/2025 1:15 PM EDT Appointment [facility] [place] Department of Ophthalmology [address] [address] Arvin García MD [address] [place] [address] documented as of this encounter Visit Diagnoses Not on filedocumented in this encounter Care Teams Optical Laboratory Technician Relationship Specialty Start Date End Date Kavita Farias MD [address] [place] [address] PCP - General 06/23/13 Nehal Snowden, PA-C [address] [place] [address] PCP - [employer] Medicare Attributed 10/18/22 01/16/23 Padmini Mariee MD [address] [place] [address] Referring Provider Rheumatology 03/02/18 Petty Tavarez MD [address] [place] [address] Surgery, Vascular 05/08/20 Yvonne Estrella MD [address] [place] [address] Physician Surgery, Colorectal 05/16/20 Darlene Rivera PA [address] [place] [address] 05/16/20 John Clark MD [address] [place] [address] Resident Endocrinology 02/17/24 Petty Tavarez MD [address] [place] [address] Surgery, Vascular 02/17/24 documented as of this encounter
--- NOTE | 2024-11-04 14:08 | HO.SPINEOV ---
Vital Signs 11/04/24 14:17 Height 53 ft Weight 171 lb BMI 0.3 Intake Visit Reasons: lumbar spondylolisthesis Intake Note: Ms. Rajput is here today c/o Low back pain. 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 She recovered well. Approximately 15 years ago she started to develop more left-sided back pain with walking and standing. Sitting down relief the symptoms. Symptoms progressed over the years and currently she is hardly able to walk anymore. Standing is problematic as she calls he has to sit down in the kitchen. She walks with a walker that will provide some relief. She denies numbness or weakness. The following conservative treatment options were tried without success antiinflammatories, tylenol, physical therapy, chiropractic therapy physician guided home exercise plan, cortisone shots and facet blocks. PMH: Hypertension, Sjogren syndrome, parathyroid syndrome for which parathyroidectomy in 2023 gynecological procedures, blue blood clot phlegmasia, Dominguez's palsy in 1962 Medications: Furosemide, hydralazine, hydroxychloroquine, levothyroxine, losartan, Xarelto, multivitamins Allergies: NKDA Social history: . Nonsmoker Physical Exam: Height 5'3 , weight 171 lb. On inspection of the lumbar spine is a well-healed scar. There is an absent lumbar lordosis. Straight leg raise is negative. No neurological deficits for motor sensation reflexes. Radiological Studies: MRI done at [facility] on 10/10/2024 shows a lumbar degenerative scoliosis L2-3 and L3-4 with a lateral listhesis L3-4. Dynamic x-rays obtained today show again the lumbar degenerative scoliosis. Impression/Plan: This patient is suffering from predominantly left-sided intractable back pain with walking and standing most likely related to the L2-3 and L3-4 disc collapse with degenerative scoliosis and lateral listhesis. Her history shows osteopenia and therefore would like to get a CT of the lumbar spine to make a determination about a surgical intervention. Thank you for allowing me to participate in your patients care. total time spent was 50 minutes in counseling ,coordination of plan, personal review of imaging, surgical decision making and subsequent plan Sandeep Parks MD, PhD Spine Fellowship Trained Neurosurgeon Director, [facility] Orders: Orders XR lumbar spine 4V min Today M41.50 - Other secondary scoliosis, site unspecified CT lumbar spine wo IV con Today M41.50 - Other secondary scoliosis, site unspecified Coding Level of Care Code New Pt Level 4 (80909) Diagnoses Scoliosis due to degenerative disease of spine in adult patient M41.50
--- OUTSIDE RECORDS SUMMARY | 2024-11-04 14:08 | XMS_ITS | Encounter Summary ---
Author Organization [facility] Address [address] [place] [address] Care Team Providers Care Director Peoplesoft Name Role Phone Kavita Farias MD Primary Care Provider [phone] Padmini Mariee MD Unavailable [phone] Petty Tavarez MD Unavailable [phone] Yvonne Estrella MD Unavailable [phone] Darlene Rivera Unavailable [phone] Nehal Snowden PA-C Unavailable [phone] John Clark MD Unavailable [phone] Petty Tavarez MD Unavailable [phone] Encounter Details Date Type Department Care Team (Late st Contact Info) Description 11/24/2022 Scanned Document [facility] Vascular & Endovascular Surgery [address] [place] [phone] Vascular Surgery, Scan Social History Tobacco Use Types Packs/Day Years [...] EDT Appointment [facility] Department of Ophthalmology [address] [address] 05/16/2025 1:15 PM EDT Appointment [facility] Department of Ophthalmology [address] [address] Arvin García MD [address] [place] [address] documented as of this encounter Visit Diagnoses Not on filedocumented in this encounter Care Teams Director Peoplesoft Relationship Specialty Start Date End Date Kvaita Farias MD [address] [place], [place] [id number] PCP - General 06/23/13 Nehal Snowden, PA-C [address] [place], [place] [phone] PCP - [employer] Medicare Attributed 10/18/22 01/16/23 Padmini Mariee MD [address] [place] [address] Referring Provider Rheumatology 03/02/18 Petty Tavarez MD [address] [place] [address] Surgery, Vascular 05/08/20 Yvonne Estrella MD [address] [place] [address] Physician Surgery, Colorectal 05/16/20 ZimDarlene dyson PA [address] [place] [address] 05/16/20 John Clark MD [address] [place] [address] Resident Endocrinology 02/17/24 Petty Tavarez MD [address] [place] [address] Surgery, Vascular 02/17/24 documented as of this encounter
--- OUTSIDE RECORDS SUMMARY | 2024-11-04 14:08 | XMS_ITS | Encounter Summary ---
Author Organization [facility] Address [address] [place] [address] Care Team Providers Care Meat Cutting Teacher Name Role Phone Kavita Farias MD Primary Care Provider [phone] Padmini Mariee MD Unavailable [phone] Petty Tavarez MD Unavailable [phone] Yvonne Estrella MD Unavailable [phone] Darlene Rivera Unavailable [phone] Nehal Snowden PA-C Unavailable [phone] John Clark MD Unavailable [phone] Petty Tavarez MD Unavailable [phone] Reason for Visit * Reason Comments Medication Refill Encounter Details Date Type Department Care Team (Late st Contact Info) Description 08/20/2022 Refill [facility] Vascular & Endovascular Surgery [place] [address] [facility] [address] [place] [phone] Sita Diane PA [address] [address] [place] [address] Personal history of venous thrombosis and embolism Social History Tobacco Use Types Packs/Day Years [...] EDT Appointment [facility] Department of Ophthalmology [address] [address] 05/16/2025 1:15 PM EDT Appointment [facility] Department of Ophthalmology [address] [address] Arvin García MD [address] [place] [address] documented as of this encounter Visit Diagnoses Diagnosis Personal history of venous thrombosis and embolism documented in this encounter Care Teams Meat Cutting Teacher Relationship Specialty Start Date End Date Kavtia Farias MD [address] [place] [address] PCP - General 06/23/13 Nehal Snowden, PA-C [address] [place] [address] PCP - [employer] Medicare Attributed 10/18/22 01/16/23 Padmini Mariee MD [address] [place] [address] Referring Provider Rheumatology 03/02/18 Petty Tavarez MD [address] [place] [address] Surgery, Vascular 05/08/20 Yvonne Estrella MD [address] [place] [address] Physician Surgery, Colorectal 05/16/20 Darlene Rivera PA [address] [place] [address] 05/16/20 John Clark MD [address] [place] [address] Resident Endocrinology 02/17/24 Petty Tavarez MD [address] [place] [address] Surgery, Vascular 02/17/24 documented as of this encounter
--- OUTSIDE RECORDS SUMMARY | 2024-11-04 14:08 | XMS_ITS | Encounter Summary ---
Author Organization [facility] Address [address] [place] [address] Care Team Providers Care Slide Machine Tender Name Role Phone Kavita Farias MD Primary Care Provider [phone] Padmini Mariee MD Unavailable [phone] Petty Tavarez MD Unavailable [phone] Yvonne Estrella MD Unavailable [phone] Darlene Rivera Unavailable [phone] John Clark MD Unavailable [phone] Petty Tavarez MD Unavailable [phone] Encounter Details Date Type Department Care Team (Late st Contact Info) Description 02/15/2024 Scanned Document [facility] Endocrine Surgery [address] [place] [address] Irina Messer MD [address] [facility] 202 [place] [address] Social History Tobacco Use Types Packs/Day Years [...] Upcoming Encounters Date Type Department Care Team ([facility] st Contact Info) Description 05/16/2025 1:15 PM EDT Appointment [facility] Department of Ophthalmology [address] [address] 05/16/2025 1:15 PM EDT Appointment [facility] Department of Ophthalmology [address] [address] Arvin García MD [address] [place] [address] documented as of this encounter Visit Diagnoses Not on filedocumented in this encounter Care Teams Slide Machine Tender Relationship Specialty Start Date End Date Kavita Farias MD [address] [place] [address] PCP - General 06/23/13 Padmini Mariee MD [address] [place] [address] Referring Provider Rheumatology 03/02/18 Petty Tavarez MD [address] [address] Surgery, Vascular 05/08/20 Yvonne Estrella MD [address] [place] [address] Physician Surgery, Colorectal 05/16/20 Darlene Rivera PA 4 [place] [address] 05/16/20 John Clark MD 41 [place] [address] Resident Endocrinology 02/17/24 Petty Tavarez MD [address] [place] [address] Surgery, Vascular 02/17/24 documented as of this encounter
--- OUTSIDE RECORDS SUMMARY | 2024-11-04 14:08 | XMS_ITS | Encounter Summary ---
Author Organization [facility] Address [address] [place] [address] Care Team Providers Care Machine Hostler Name Role Phone Kavita Farias MD Primary Care Provider [phone] Padmiin Mariee MD Unavailable [phone] Petty Tavarez MD Unavailable [phone] Yvonne Estrella MD Unavailable [phone] Darlene Rivera Unavailable [phone] John Clark MD Unavailable [phone] Petty Tavarez MD Unavailable [phone] Encounter Details Date Type Department Care Team (Late st Contact Info) Description 12/31/2023 Telephone [facility] Endocrine Surgery [address] [place] [address] Irina Messer MD [address] [facility] 202 [place] [address] Social History Tobacco Use Types Packs/Day Years [...] encounter Miscellaneous Notes * Telephone Encounter - Mayra Arshad MA - 01/01/2024 10:50 AM EDT Scheduled for 02/14 * Telephone Encounter - Terra Leroy MA - 12/31/2023 2:01 PM EDT Patient stated retuning a phone call from Mayra to set up an appt for the patient to see , please call the patient. documented in this encounter Plan of Treatment Upcoming Encounters Date Type Department Care Team (Late st Contact Info) Description 05/16/2025 1:15 PM EDT Appointment [facility] Department of Ophthalmology [address] [address] 05/16/2025 1:15 PM EDT Appointment [facility] Department of Ophthalmology [address] [address] Arvin García MD [address] [place] [address] documented as of this encounter Visit Diagnoses Not on filedocumented in this encounter Care Teams Machine Hostler Relationship Specialty Start Date End Date Kavita Farias MD [address] [place] [address] PCP - General 06/23/13 Padmini Mariee MD [address] [place] [address] Referring Provider Rheumatology 03/02/18 Petty Tavarez MD [address] [address] Surgery, Vascular 05/08/20 Yvonne Estrella MD [address] [place] [address] Physician Surgery, Colorectal 05/16/20 Darlene Rivera PA 4 [place] [address] 05/16/20 John Clark MD [address] [place] [address] Resident Endocrinology 02/17/24 Petty Tavarez MD [address] [address] Surgery, Vascular 02/17/24 documented as of this encounter
--- OUTSIDE RECORDS SUMMARY | 2024-11-04 14:08 | XMS_ITS ---
Author Organization [facility] Address [address] [place] [address] Care Team Providers Care Cigar Making Machine Operator Name Role Phone Kavita Farias Primary Care Provider Padmini Mraiee Unavailable [phone] REASON FOR VISIT concerns Social History Sex Assigned At : Social History Observation Description Sex Assigned At Female Encounters Encounter Location Date Provider Diagnosis [facility] [address] [facility] [address] [place], [place] [id number] 11/02/2024 Kavita Farias Plan Of Treatment Next Appt Details Provider Name:Padmini Mariee , 11/08/2024 12:30:00 PM, [address] [place] [address], [phone], Provider Name:John Clark, 04/11/2025 01:00:00 PM, [address] [place] [address], [phone], Progress Notes * TRICIA HURTADODOB:1945 (79 yo F)Acc No.[id number]:11/02/2024 Patient:?TRICIA HURTADO :1945???Age:79 Y???Sex:Female Address:[address], [address], [place] [address] * true * Date:? Generated for Claudette ladd/Tanner/eTransmitting on:?11/04/2024 02:07 PM EDT
--- OUTSIDE RECORDS SUMMARY | 2024-11-04 14:08 | XMS_ITS | Clinical Summary ---
Author Organization [facility] Address [address] [place] [address] Care Team Providers Care Marine Electrician Name Role Phone Brittany Curry Primary Care Provider [phone] Allergies Active Allergy Reactions Criticality Noted Date Comments Lovastatin 01/30/2016 Rosuvastatin 01/30/2016 Medications Ezetimibe (Zetia) 10 MG tablet 0 6 Active Aspirin (ST HERMILA) 81 MG EC tablet 0 6 Active FLUTICASONE PROPIONATE, NASAL, (FT Allergy Relief 24 HR) 50 MCG/ACT nasal spray 0 6 Active Levothyroxine Sodium (Synthroid) 137 MCG tablet 0 1 Active hydroCHLOROthiaz vane (HYDRODIURIL) 12.5 MG tablet 0 1 Active Melatonin tablet 0 0 Active Mouthwashes (Biotene Dry Mouth Gentle) Liquid 0 0 Active Sulfasalazine (AZULFIDINE) 500 MG tablet 0 0 Active Triamcinolone Acetonide (KENALOG) 0.1 % cream 0 0 Active Rivaroxaban (Xarelto) 20 MG tablet 0 0 Active Ketotifen Fumarate (Zaditor) 0.035 % ophthalmic solution 0 0 Active Ascorbic Acid (Vitamin C) 500 MG Cap 0 0 Active Losartan Potassium-HCTZ (HYZAAR) 100-12.5 MG per tablet 90 0 8 Active clonazePAM (KlonoPIN) 0.5 MG tablet 30 0 8 Active Levothyroxine Sodium (SYNTHROID, LEVOTHROID) 88 MCG tablet 90 0 8 Active Amoxicillin-Pot Clavulanate (AUGMENTIN) 875-125 MG per tablet TAKE 1 TABLET EVERY 12 HOURS DAILY. 14 0 8 Active Chlorhexidine Gluconate (PERIDEX) 0.12 % solution RINSE MOUTH WITH 15ML (1 CAPFUL) FOR 30 SECONDS THREE TIMES A DAY AFTER MEALS. EXPECTORATE AFTER RINSING, DO NOT SWALLOW 1 0 8 Active Fluorouracil (EFUDEX) 5 % cream APPLY A THIN LAYER TO AFFECTED AREA(S) TWICE DAILY. 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 11/25/2011 Hypothyroidism 07/09/2011 Essential familial hypercholesterolemia 07/09/20 11 Family History Medical History Relation Name Comments Cancer - Colon Father Colon cancer : Father Diabetes Father diabetes mellit us : Father Cancer (?Type) Mother malignant ken plasm of urinary bladder : Mother Hearing Loss Mother deafness or hea ring loss : Mother Relation Name Status Comments Father Mother Social History Tobacco Use Types Packs/Day Years Used Date Smoking Tobacco: Never Assessed Comments:Smoking Status:Neve r a smoker Comments Unknown Sex and Gender Information Value Date Recorded Sex Assigned at Not on file Legal Sex Female 11:16 AM EDT Gender Identity Not on file Sexual Orientation Not on file Last Filed Vital Signs Vital Sign Reading Time Taken Comments Blood Pressure 132/78 01/30/2016 3:14 PM EDT Pulse 74 01/30/2016 3:14 PM EDT Temperature - - Respiratory Rate - - Oxygen Saturation - - Inhaled Oxygen Concentration - - Weight 78.9 kg (174 lb 0.2 oz) 01/30/2016 3:14 P M EDT Height 160 cm (5' 3 ) 01/30/2016 3:14 PM EDT Body Mass Index 30.82 01/30/2016 3:14 PM EDT Plan of Treatment Health Maintenance Due Date Last Done Comments DTaP/Tdap/Td (1 - Tdap) 1961 Pneumococcal 50+ years (1 of 1 - PCV) 1993 Zoster (Shingrix) (1 of 2) 1993 Bone Density 2008 RSV (1 - 1-dose 75+ series) 2018 COVID-19 Vaccine (1 - 2023-2 5 season) 2024 Influenza (#1) 2024 EKG Discontinued 08/12/2011 HPV Vaccine Aged Out No longer eligi ble based on patient's age to complete this topic Hep A Aged Out No longer eligi ble based on patient's age to complete this topic Hep B Aged Out No longer eligi ble based on patient's age to complete this topic Hib Aged Out No longer eligi ble based on patient's age to complete this topic Mammogram/Breast Imaging Discontinued Meningococcal ACWY Aged Out No longer eligible based on patient's age to complete this topic Pap Smear Discontinued Zoster (Zostavax) Discontinued Procedures Procedure Name Priority Date/Time Associated Diagnosis Comments EKG 08/12/2011 12:00 AM EST from Last 3 Months or Most Recently Relevant to Health Maintenance Results * EKG (08/12/2011 12:00 AM EST) Narrative 08/12/2011 12:00 AM EST Ordered by an unspecified provider. us Unknown Provider CARDIOVASCULAR-NO INBASKET RTG Final Result from Last 3 Months or Most Recently Relevant to Health Maintenance Care Teams Marine Electrician Relationship Specialty Start Date End Date Brittany Curry [address] [place] [id number] PCP - General 02/23/23
--- OUTSIDE RECORDS SUMMARY | 2024-11-04 14:08 | XMS_ITS | Encounter Summary ---
Author Organization [facility] Address [address] [place] [address] Care Team Providers Care Program Director/Traffic Director Name Role Phone Kavita Farias MD Primary Care Provider [phone] Padmini Mariee MD Unavailable [phone] Petty Tavarez MD Unavailable [phone] Yvonne Estrella MD Unavailable [phone] Darlene Rivera Unavailable [phone] Nehal Snowden PA-C Unavailable [phone] John Clark MD Unavailable [phone] Petty Tavarez MD Unavailable [phone] Encounter Details Date Type Department Care Team (Late st Contact Info) Description 06/09/2022 Scanned Document [facility] [address] [place] [phone] Vascular Surgery, Scan Social History Tobacco Use [...] Exposure Response Date Recorded In the last 10 days, have yo u been in contact with someone who was confirmed or suspected to have Coronavirus/COVID-19? No / Unsure 06/04/2022 10:57 AM EST documented as of this encounter Plan of Treatment Upcoming Encounters Date Type Department Care Team (Late st Contact Info) Description 05/16/2025 1:15 PM EDT Appointment [facility] Department of Ophthalmology [address] [phone] 05/16/2025 1:15 PM EDT Appointment [facility] Department of Ophthalmology [address] [phone] Arvin García MD [address] [place] [phone] documented as of this encounter Visit Diagnoses Not on filedocumented in this encounter Care Teams Program Director/Traffic Director Relationship Specialty Start Date End Date Kavita Farias MD [address] [place] [address] PCP - General 06/23/13 Nehal Snowden, PA-C [address] [place], [place] [phone] PCP - [employer] Attributed 10/18/22 01/16/23 Padmini Mariee MD [address] [place] [phone] Referring Provider Rheumatology 03/02/18 Petty Tavarez MD [address] [place] [phone] Surgery, Vascular 05/08/20 Yvonne Estrella MD [address] [place] [phone] Physician Surgery, Colorectal 05/16/20 Darlene Rivera PA [address] [place] [address] 05/16/20 John Clark MD [address] [place] [phone] Resident Endocrinology 02/17/24 Petty Tavarez MD [address] [place] [phone] Surgery, Vascular 02/17/24 documented as of this encounter
--- OUTSIDE RECORDS SUMMARY | 2024-11-04 14:08 | XMS_ITS ---
Author Name [facility] Organization Unknown Results Test Name/Text Value Interpretation Date Range Source MICROALBUMIN,RANDOM URINE 2.12MG/DL Above high normal [id number] 0.6 - 1.7 [facility] CREATININE,RANDOM URINE 136.7MG/DL Normal [id number] 28 - 217 [facility] ALBUMIN/CREATININE RATIO 15.5MG/G Normal [id number] - 20 [facility] GAMMA GLUTAMYL TRANSFERASE 41U/L Above high normal [id number] 5 - 36 [facility] TRIGLYCERIDES 237MG/DL Above high normal [id number] - 150 [facility] CHOLESTEROL 281MG/DL Above high normal [id number] 6 - 200 [facility] HIGH DENSITY LIPOPROTEIN (HDL) 65MG/DL Normal [id number] 65 - [facility] LDL (CALCULATED) 169MG/DL Above high normal [id number] 50 - 130 [facility] VLDL 47MG/DL Above high normal [id number] 10 - 31 [facility] INR 1.2 Normal [id number] 0.8 - 1.2 [facility] PROTHROMBIN TIME (PT) 13.3SEC Above high normal [id number] 9.5 - 12.3 [facility] PTT(APTT), PLASMA 36.1SEC Normal [id number] 24 - 43 [facility] VITAMIN D 25 HYDROXY 39NG/ML Normal [id number] 30 - 100 [facility] BLOOD UREA NITROGEN 14MG/DL Normal [id number] 6 - 20 [facility] BILIRUBIN, TOTAL 0.5MG/DL Normal [id number] 0.3 - 1.2 [facility] CALCIUM 9.5MG/DL Normal [id number] 8.8 - 10.2 [facility] CO2 24MMOL/L Normal [id number] 22 - 29 [facility] CREATININE 0.6MG/DL Normal [id number] 0.5 - 0.9 [facility] ALT 43U/L Above high normal [id number] 5 - 33 [facility] ANION GAP 17MMOL/L Above high normal [id number] - [facility] GLUCOSE, FASTING 106MG/DL Normal [id number] 74 - 106 [facility] EST. GLOMERULAR FILTRATION 91 Normal [id number] [facility] AST 41U/L Above high normal [id number] 6 - 32 [facility] POTASSIUM 3.9MMOL/L Normal [id number] 3.5 - 4.9 [facility] ALKALINE PHOSPHATASE 50U/L Normal [id number] 35 - 105 [facility] TOTAL PROTEIN 7.7G/DL Normal [id number] 6.6 - 8.7 [facility] BUN/CREATININE RATIO 23.3 Normal [id number] [facility] CHLORIDE 99MMOL/L Normal [id number] 98 - 107 [facility] SODIUM 136MMOL/L Normal [id number] 136 - 145 [facility] ALBUMIN 4.5G/DL Normal [id number] 3.5 - 5.2 [facility] PARATHYROID HORMONE INTACT,PL 62.8PG/ML Normal [id number] 15 - 65 [facility] AP GROSS DESCRIPTION Received in formalin. Dimensions 12 x 9 x 4 mm, multiply sectioned, friable, and submitted in 1 cassette. Normal [id number] [facility] CLINICAL INFORMATION Crusted pink papule; NUB vs SCC Normal [id number] [facility] TSH SENSITIVE 1.88mIU/L Normal [id number] 0.27 - 4.2 [facility] FREE THYROXIN (FREE T4) 1.3NG/DL Normal [id number] 0.9 - 1.7 [facility] PARATHYROID HORMONE INTACT,PL 66.3PG/ML Above high normal [id number] 15 - 65 [facility] BLOOD UREA NITROGEN 12MG/DL Normal [id number] 6 - 20 [facility] BILIRUBIN, TOTAL 0.4MG/DL Normal [id number] 0.3 - 1.2 [facility] CALCIUM 9MG/DL Normal [id number] 8.8 - 10.2 [facility] CO2 27MMOL/L Normal [id number] 22 - 29 [facility] CREATININE 0.8MG/DL Normal [id number] 0.5 - 0.9 [facility] ALT 34U/L Above high normal [id number] 5 - 33 [facility] ANION GAP 14MMOL/L Normal [id number] - [facility] GLUCOSE, FASTING 114MG/DL Above high normal [id number] 74 - 106 [facility] EST. GLOMERULAR FILTRATION > 60 Normal [id number] [facility] AST 33U/L Above high normal [id number] 6 - 32 [facility] POTASSIUM 3.7MMOL/L Normal [id number] 3.5 - 4.9 [facility] ALKALINE PHOSPHATASE 51U/L Normal [id number] 35 - 105 [facility] TOTAL PROTEIN 7.4G/DL Normal [id number] 6.6 - 8.7 [facility] BUN/CREATININE RATIO 15 Normal [id number] [facility] CHLORIDE 103MMOL/L Normal [id number] 98 - 107 [facility] SODIUM 140MMOL/L Normal [id number] 136 - 145 [facility] ALBUMIN 4.1G/DL Normal [id number] 3.5 - 5.2 [facility] PTH INTRAOP 37pg/mL Normal [id number] 15 - 65 [facility] PTH INTRAOP 35pg/mL Normal [id number] 15 - 65 [facility] PTH INTRAOP 51pg/mL Normal [id number] 15 - 65 [facility] PTH INTRAOP 95pg/mL Above high normal [id number] 15 - 65 [facility] BLOOD UREA NITROGEN 15MG/DL Normal [id number] 6 - 20 [facility] BILIRUBIN, TOTAL 0.4MG/DL Normal [id number] 0.3 - 1.2 [facility] CALCIUM 10.7MG/DL Above high normal [id number] 8.8 - 10. 2 [facility] CO2 22MMOL/L Normal [id number] 22 - 29 [facility] CREATININE 0.6MG/DL Normal [id number] 0.5 - 0.9 [facility] ALT 47U/L Above high normal [id number] 5 - 33 [facility] ANION GAP 15MMOL/L Normal [id number] - [facility] EST. GLOMERULAR FILTRATION > 60 Normal [id number] [facility] AST 38U/L Above high normal [id number] 6 - 32 [facility] POTASSIUM 3.3MMOL/L Below low normal [id number] 3.5 - 4.9 [facility] ALKALINE PHOSPHATASE 53U/L Normal [id number] 35 - 105 [facility] TOTAL PROTEIN 7.5G/DL Normal [id number] 6.6 - 8.7 [facility] GLUCOSE, RANDOM 114MG/DL Normal [id number] 70 - 139 [facility] BUN/CREATININE RATIO 25 Normal [id number] [facility] CHLORIDE 108MMOL/L Above high normal [id number] 98 - 107 [facility] SODIUM 142MMOL/L Normal [id number] 136 - 145 [facility] ALBUMIN 4.3G/DL Normal [id number] 3.5 - 5.2 [facility] MAGNESIUM 1.8MG/DL Normal [id number] 1.6 - 2.6 [facility] INR 1.1 Normal [id number] 0.8 - 1.2 [facility] PROTHROMBIN TIME (PT) 13SEC Normal [id number] 10 - 13.2 [facility] PTT(APTT), PLASMA 33.9SEC Normal [id number] 24 - 43 [facility] HEMOGLOBIN 14.9GM/DL Normal [id number] 12.5 - 16 [facility] RDW 13.1% Normal [id number] 11.5 - 14.5 [facility] RBC 4.61M/UL Normal [id number] 4.2 - 5.4 [facility] WBC 9.7K/UL Normal [id number] 4 - 10.5 [facility] HEMATOCRIT 44% Normal [id number] 37 - 47 [facility] MCH 32.3PG Above high normal [id number] 27 - 31 [facility] MEAN PLATELET VOLUME 10.9fL Normal [id number] 8.8 - 13.6 [facility] MCV 95.4FL Normal [id number] 78 - 100 [facility] PLATELET COUNT 227K/UL Normal [id number] 150 - 450 [facility] MCHC 33.9GM/DL Normal [id number] 32 - 36 [facility] LAB AP GROSS DESCRIPTION Received in formalin. Dimensions 8 x 5 x 1 mm, bisected, and submitted in 1 cassette. Normal [id number] [facility] CLINICAL INFORMATION Crusted pink papule; NUB vs SCC Normal [id number] [facility] BLOOD UREA NITROGEN 20MG/DL Normal [id number] 6 - 20 [facility] BILIRUBIN, TOTAL 0.4MG/DL Normal [id number] 0.3 - 1.2 [facility] CALCIUM 10.8MG/DL Above high normal [id number] 8.8 - 10. 2 [facility] CO2 27MMOL/L Normal [id number] 22 - 29 [facility] CREATININE 0.6MG/DL Normal [id number] 0.5 - 0.9 [facility] ALT 65U/L Above high normal [id number] 5 - 33 [facility] ANION GAP 16MMOL/L Normal [id number] - [facility] EST. GLOMERULAR FILTRATION > 60 Normal [facility] AST 52U/L Above high normal [id number] 6 - 32 [facility] POTASSIUM 3.7MMOL/L Normal [id number] 3.5 - 4.9 [facility] ALKALINE PHOSPHATASE 51U/L Normal [id number] 35 - 105 [facility] TOTAL PROTEIN 7.5G/DL Normal [id number] 6.6 - 8.7 [facility] GLUCOSE, RANDOM 111MG/DL Normal [id number] 70 - 139 [facility] BUN/CREATININE RATIO 33.3 Normal [id number] [facility] CHLORIDE 101MMOL/L Normal [id number] 98 - 107 [facility] SODIUM 140MMOL/L Normal [id number] 136 - 145 [facility] ALBUMIN 4.3G/DL Normal [id number] 3.5 - 5.2 [facility] PARATHYROID HORMONE INTACT,PL 145.4PG/ML Above high normal [id number] 15 - 65 [facility] 24HR UCA VOLUME 2450ML Normal [id number] [facility] 24HR URINE CALCIUM 290.4MG/24HR Normal [id number] 100 - 300 [facility] URINE CREATININE 24HR 650.4MG/24HR Below low normal [id number] 740 - 1570 [facility] 24HR UCR VOLUME 2450ML Normal [id number] [facility] VITAMIN D 25 HYDROXY 40NG/ML Normal [id number] 30 - 100 [facility] BLOOD UREA NITROGEN 23MG/DL Above high normal [id number] 6 - 20 [facility] BILIRUBIN, TOTAL 0.5MG/DL Normal [id number] 0.3 - 1.2 [facility] CALCIUM 11.4MG/DL Above high normal [id number] 8.8 - 10. 2 [facility] CO2 26MMOL/L Normal [id number] 22 - 29 [facility] CREATININE 0.6MG/DL Normal [id number] 0.5 - 0.9 [facility] ALT 79U/L Above high normal [id number] 5 - 33 [facility] ANION GAP 15MMOL/L Normal [id number] - [facility] GLUCOSE, FASTING 101MG/DL Normal [id number] 74 - 106 [facility] EST. GLOMERULAR FILTRATION > 60 Normal [id number] [facility] AST 53U/L Above high normal [id number] 6 - 32 [facility] POTASSIUM 3MMOL/L Below low normal [id number] 3.5 - 4.9 [facility] ALKALINE PHOSPHATASE 52U/L Normal [id number] 35 - 105 [facility] TOTAL PROTEIN 8G/DL Normal [id number] 6.6 - 8.7 [facility] BUN/CREATININE RATIO 38.3 Normal [id number] [facility] CHLORIDE 105MMOL/L Normal [id number] 98 - 107 [facility] SODIUM 143MMOL/L Normal [id number] 136 - 145 [facility] ALBUMIN 4.5G/DL Normal [id number] 3.5 - 5.2 [facility] PHOSPHORUS 2.4MG/DL Below low normal [id number] 2.5 - 4.5 [facility] IONIZED CALCIUM 5.3mg/dL Normal [id number] 4.7 - 5.5 [facility] FREE THYROXIN (FREE T4) 1.7NG/DL Normal [id number] 0.8 - 1.7 [facility] VLDL 33MG/DL Above high normal [id number] 10 - 31 [facility] CHOLESTEROL 274MG/DL Above high normal [id number] 6 - 200 [facility] HIGH DENSITY LIPOPROTEIN (HDL) 68MG/DL Normal [id number] 65 - [facility] LDL (CALCULATED) 173MG/DL Above high normal [id number] 50 - 130 [facility] TRIGLYCERIDES 168MG/DL Above high normal [id number] - 150 [facility] BLOOD UREA NITROGEN 15MG/DL Normal [id number] 6 - 20 [facility] BILIRUBIN, TOTAL 0.4MG/DL Normal [id number] 0.3 - 1.2 [facility] CALCIUM 10.7MG/DL Above high normal [id number] 8.8 - 10. 2 [facility] CO2 22MMOL/L Normal [id number] 22 - 29 [facility] CREATININE 0.7MG/DL Normal [id number] 0.5 - 0.9 [facility] ALT 55U/L Above high normal [id number] 5 - 33 [facility] ANION GAP 15MMOL/L Normal [id number] - [facility] GLUCOSE, FASTING 90MG/DL Normal [id number] 74 - 106 [facility] EST. GLOMERULAR FILTRATION > 60 Normal [id number] [facility] AST 49U/L Above high normal [id number] 6 - 32 [facility] POTASSIUM 3.8MMOL/L Normal [id number] 3.5 - 4.9 [facility] ALKALINE PHOSPHATASE 46U/L Normal [id number] 35 - 105 [facility] TOTAL PROTEIN 7.9G/DL Normal [id number] 6.6 - 8.7 [facility] BUN/CREATININE RATIO 21.4 Normal [id number] [facility] CHLORIDE 103MMOL/L Normal [id number] 98 - 107 [facility] SODIUM 136MMOL/L Normal [id number] 136 - 145 [facility] ALBUMIN 4.4G/DL Normal [id number] 3.5 - 5.2 [facility] TSH SENSITIVE W/RFX TO FREE T4 4.92mIU/L Above high normal [id number] 0.27 - 4.2 [facility] BLOOD UREA NITROGEN 19MG/DL Normal [id number] 6 - 20 [facility] BILIRUBIN, TOTAL 0.4MG/DL Normal [id number] 0.3 - 1.2 [facility] CALCIUM 10MG/DL Normal [id number] 8.8 - 10.2 [facility] CO2 27MMOL/L Normal [id number] 22 - 29 [facility] CREATININE 0.8MG/DL Normal [id number] 0.5 - 0.9 [facility] ALT 42U/L Above high normal [id number] 5 - 33 [facility] ANION GAP 15MMOL/L Normal [id number] - [facility] EST. GLOMERULAR FILTRATION > 60 Normal [id number] [facility] AST 40U/L Above high normal [id number] 6 - 32 [facility] POTASSIUM 3.9MMOL/L Normal [id number] 3.5 - 4.9 [facility] ALKALINE PHOSPHATASE 48U/L Normal [id number] 35 - 105 [facility] TOTAL PROTEIN 7.2G/DL Normal [id number] 6.6 - 8.7 [facility] GLUCOSE, RANDOM 85MG/DL Normal [id number] 70 - 139 [facility] BUN/CREATININE RATIO 23.7 Normal [id number] [facility] CHLORIDE 104MMOL/L Normal [id number] 98 - 107 [facility] SODIUM 142MMOL/L Normal [id number] 136 - 145 [facility] ALBUMIN 4.1G/DL Normal [id number] 3.5 - 5.2 [facility] IONIZED CALCIUM 5.5mg/dL Normal [id number] 4.7 - 5.5 [facility] VLDL 28MG/DL Normal [id number] 10 - 31 [facility] CHOLESTEROL 257MG/DL Above high normal [id number] 6 - 200 [facility] HIGH DENSITY LIPOPROTEIN (HDL) 87MG/DL Normal [id number] 65 - [facility] LDL (CALCULATED) 142MG/DL Above high normal [id number] 50 - 130 [facility] TRIGLYCERIDES 143MG/DL Normal [id number] - 150 [facility] BLOOD UREA NITROGEN 17MG/DL Normal [id number] 6 - 20 [facility] BILIRUBIN, TOTAL 0.6MG/DL Normal [id number] 0.3 - 1.2 [facility] CALCIUM 10.4MG/DL Above high normal [id number] 8.8 - 10. 2 [facility] CO2 25MMOL/L Normal [id number] 22 - 29 [facility] CREATININE 0.7MG/DL Normal [id number] 0.5 - 0.9 [facility] ALT 37U/L Above high normal [id number] 5 - 33 [facility] ANION GAP 13MMOL/L Normal [id number] - [facility] GLUCOSE, FASTING 102MG/DL Normal [id number] 74 - 106 [facility] EST. GLOMERULAR FILTRATION > 60 Normal [id number] [facility] AST 30U/L Normal [id number] 6 - 32 [facility] POTASSIUM 3.9MMOL/L Normal [id number] 3.5 - 4.9 [facility] ALKALINE PHOSPHATASE 41U/L Normal [id number] 35 - 105 [facility] TOTAL PROTEIN 7.2G/DL Normal [id number] 6.6 - 8.7 [facility] BUN/CREATININE RATIO 24.2 Normal [id number] [facility] CHLORIDE 108MMOL/L Above high normal [id number] 98 - 107 [facility] SODIUM 142MMOL/L Normal [id number] 136 - 145 [facility] ALBUMIN 4.4G/DL Normal [id number] 3.5 - 5.2 [facility] PARATHYROID HORMONE INTACT,PL 103.8PG/ML Above high normal [id number] 15 - 65 [facility] History of Medication Use Medication Directions Dispensed Refills Start Date End Date Status losartan-hydroCHLOROt hiazide (HYZAAR) 100-12.5 MG per tablet 08/04/19 24 active Zaditor 0.025 % Zaditor 0.025 % active Systane 0.4-0.3 % Systane 0.4-0.3 % active Losartan Potassium 100 MG Losartan Potassium 100 MG 02/18/20 23 active Losartan Potassium-HCTZ 100-12.5 MG Losartan Potassium-HCTZ 100-12.5 MG suspended alendronate-cholecalc iferol (FOSAMAX PLUS D) 70-2800 MG-UNIT per tablet Take 1 tablet by mouth every 7 days. Take with a full glass of water; do not lie down for the next 30 min. active Xarelto 10 MG tablet TAKE ONE (1) TABLET (10 MG TOTAL) BY MOUTH DAILY. 07/29/19 23 024 active Lactulose - Lactulose - active Levothyroxine Sodium 100 MCG Levothyroxine Sodium 100 MCG active diphenhydrAMINE (BENADRYL) injection 25 mg 25 mg, Intravenous, Every 15 min PRN, itching, Starting on Thu03/22/24 at 0910, For 2 doses, PACU (only), For a maximum total dose of 50 mg If ordered IV push, inject at a rate of 25 mg/minute or LESS. 03/22/20 active acetaminophen (TYLENOL) tablet 975 mg 975 mg, Oral, Once PRN, mild pain 1-3, Starting on Thu03/22/24 at 0910, For 1 dose, PACU (only), Give when patient is tolerating PO 03/22/20 24 active Xarelto 10 MG Xarelto 10 MG 05/07/20 20 active Furosemide 20 MG active losartan-hydroCHLOROt hiazide (HYZAAR) 100-12.5 MG per tablet Take 1 tablet by mouth nightly. 08/04/19 24 active Benzonatate 100 MG Benzonatate 100 MG 05/06/20 23 active Benzonatate 100 MG Benzonatate 100 MG active acetaminophen (TYLENOL) 325 MG tablet Take 2 tablets (650 mg total) by mouth 4 times daily (every 6 hours) as needed for mild pain or fever. 03/22/20 24 024 active Levothyroxine Sodium 112 MCG Levothyroxine Sodium 112 MCG active SF 5000 Plus 1.1 % Cream 06/07/20 22 active Losartan Potassium-HCTZ 100-12.5 MG Losartan Potassium-HCTZ 100-12.5 MG active Alendronate Sodium 70 MG Alendronate Sodium 70 MG active multivitamin Tab tablet Take 1 tablet by mouth every morning. active levothyroxine (SYNTHROID, LEVOTHROID) 88 MCG tablet Take 1 tablet (88 mcg total) by mouth daily on an empty stomach. Total dose 112mcg per day aborted Hydroxychloroquine Sulfate 200 MG Hydroxychloroquine Sulfate 200 MG active ipratropium-albuterol (DUONEB) 0.5-2.5 mg/3 mL nebulizer solution 3 mL 3 mL, Nebulization, Once PRN, wheezing, Starting on Thu03/22/24 at 0910, For 1 dose, PACU (only), Albuterol expressed in base strength. Albuterol sulfate 3 mg = albuterol (base) 2.5 mg. 03/22/20 24 active oxyCODONE (ROXICODONE) immediate release tablet 10 mg 10 mg, Oral, Once PRN, severe to excruciating pain 7-10, Starting on Tu03/22/24 at 0910, For 1 dose, PACU (only), Give when patient is tolerating PO 03/22/20 24 024 active Cinacalcet HCl 30 MG Cinacalcet HCl 30 MG 03/05/20 23 active furosemide (LASIX) 20 MG tablet Take 1 tablet (20 mg total) by mouth nightly. 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 2018-03-05 ProblemAct [facility] Personal history of venous thrombosis and embolism active EncounterDiagnosisAct [facility] Deep vein thrombosis (DVT) of right lower extremity active 2020-02-16 ProblemAct [facility] Transaminitis active 2021-09-02 ProblemAct [facility] T Primary hypertension active 2021-09-02 ProblemAct [facility] Venous stasis of lower extremity active 2019-03-18 ProblemAct [facility] Arthritis active 2016-01-30 ProblemAct [facility] 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 2020-02-[address] Hypokalemia active 2020-02-16 ProblemAct [facility] HLD (hyperlipidemia) active 2020-02-16 ProblemAct [facility] 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 ProblemAct [facility] Psoriasis active 2021-09-02 ProblemAct [facility] Presbyopia active 2024-02-15 ProblemAct [facility] Chronic anticoagulation active 2020-11-27 ProblemAct [facility] Acquired hypothyroidism active 2021-09-02 ProblemAct [facility] Elevated rheumatoid factor active 2018-03-05 ProblemAct [facility] S/P parathyroidectomy active 2024-03-22 ProblemAct [facility] Venous stasis ulcer of left lower leg with edema of left lower leg active 2018-06-24 ProblemAct [facility] Sjogren's syndrome with keratoconjunctivitis sicca active 2018-07-08 ProblemAct [facility] Blunt trauma of left lower leg active 2018-06-17 ProblemAct [facility] Acquired anal stenosis active 2019-04-05 ProblemAct [facility] Stroke active 2016-01-30 ProblemAct [facility] Primary hyperparathyroidism active 2024-02-15 ProblemAct [facility] Hypermetropia, bilateral active 2024-02-15 ProblemAct [facility] 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 2020-04-25 ProblemAct [facility] Hyponatremia active 2021-09-02 ProblemAct [facility] Immunizations Vaccine Date Source Lot Number Status T[facility] (Bill[facility]) [id number] Covid 19 Pfizer Vaccine .3 mL Dose 09/10/2020 [facility] completed Tdap (Billable) 11/28/2014 [facility] [id number] completed Influenza - High Dose 04/07/2023 [facility] [id number] com pleted Encounters Encounter Type Encounter Reason Primary Diagnosis Location Date Ambulatory [facility] 10/18/19 25 Ambulatory [facility] 10/18/19 25 Ambulatory STENOSIS MULT LEVELS LOW BACK PA IN, UNSPECIFIED [facility] 10/11/19 25 Ambulatory [facility] 10/06/19 25 Ambulatory [facility] 10/06/[address] [facility] 09/23/19 25 Ambulatory ESSENTIAL (PRIMA RY) HYPERTENSION [facility] 09/21/19 25 Ambulatory HYPERPARATHYROIDISM PRIMARY HYPERPARATHYROIDISM [facility] 09/13/19 25 Ambulatory IM EP [facility] 09/06/19 25 Ambulatory LAB FATTY (CHANGE OF ) LIVER, NOT ELSEWHERE CLASSIFIED [facility] 09/03/19 25 Ambulatory SP EP [facility] 08/17/19 25 Ambulatory LAB VITAMIN D DEFICI ENCY, UNSPECIFIED [facility] 07/25/19 25 Ambulatory SP EP [facility] 05/10/20 24 Ambulatory SP Urg/Rtn [facility] 04/19/20 24 Ambulatory [facility] 04/18/20 24 Ambulatory [facility] 04/18/20 24 Ambulatory LAB HYPOTHYROIDISM, UNSPECIFIED [facility] 04/18/20 24 Ambulatory Primary hyperparathyroidism Primary hyperparathyroidism [facility] 04/04/20 24 Ambulatory Primary hyperparathyroidism Primary hyperparathyroidism [facility] 03/22/20 [address] [facility] 0 24 Ambulatory IM PreOpPE [facility] 02/26/20 24 Ambulatory Primary hyperparathyroidism Primary hyperparathyroidism [facility] 02/15/20 24 Ambulatory [facility] 02/15/20 24 Ambulatory [facility] 12/28/19 24 Ambulatory LAB PRIMARY HYPERPARATHYROIDISM [facility] 12/25/19 24 Ambulatory SP Urg/Rtn [facility] 12/25/19 24 Ambulatory LAB PRIMARY HYPERPARATHYROIDISM [facility] 12/23/19 24 Ambulatory LAB PRIMARY HYPERPARATHYROIDISM [facility] 12/01/19 24 Ambulatory PRIMARY HYPERPARATHYROIDISM [facility] 12/01/19 24 Ambulatory Consult [facility] 11/17/19 24 Ambulatory SP EP [facility] 11/10/19 24 Ambulatory [facility] 10/09/19 24 Ambulatory IM PE 45 [facility] 10/08/19 24 Ambulatory ESSENTIAL (PRIMA RY) HYPERTENSION [facility] 09/29/19 [address] [facility] 08/31/19 24 Ambulatory Personal history of other venous thrombosis and embolism Personal history of other venous thrombosis and embolism [facility] 08/27/19 24 Ambulatory Personal history of other venous thrombosis and embolism Personal history of other venous thrombosis and embolism [facility] 08/27/19 24 Ambulatory SP EP [facility] 05/04/20 23 Ambulatory AWV [facility] 04/07/20 23 Ambulatory EP [facility] 04/06/20 23 Ambulatory EDEMA, UNSPECIFIED [facility] 23 Ambulatory LAB HYPERLIPIDEMIA, UNSPECIFIED [facility] 03/02/20 23 Ambulatory HYPERPARATHYROIDISM/ OSTE OPOROSIS OTHER OSTEOPOROSIS WITHOUT CURRENT PATHOLOGICAL FRACTURE [facility] 02/13/20 23 Ambulatory Chronic anal fissure [facility] 12/04/19 23 Ambulatory ABNORMAL LEVELS OF OTHER SERUM ENZYMES [facility] 10/10/19 23 Ambulatory [facility] 10/08/19 23 Ambulatory SJOGREN SYNDROME , UNSPECIFIED [facility] 09/26/19 23 Ambulatory ESSENTIAL (PRIMA RY) HYPERTENSION [facility] 09/26/19 23 Ambulatory [facility] 09/04/19 23 Ambulatory [facility] 09/04/19 23 Emergency COVID+/ANTIBODY [facility] 08/07 23 Ambulatory Other forms of stomatitis [facility] 06/25/20 22 Ambulatory Anal fissure, unspecified [facility] 06/04/20 22 Ambulatory HYPERLIPIDEMIA, UNSPECIFIED [facility] 03/01/20 22 Ambulatory LUMBAR SPONDYLOLISTHESIS LOW ANITA K PAIN, UNSPECIFIED [facility] 02/25/20 22 Ambulatory Chronic anal fissure [facility] 11/28/19 22 Ambulatory ENCNTR FOR GENER AL ADULT MEDICAL EXAM W/O ABNORMAL FINDINGS [facility] 10/16/19 22 Observation Syncope and collapse [facility] 09/02/19 22 Ambulatory Personal history of other venous thrombosis and embolism [facility] 08/28/19 22 Ambulatory [place] 08/28/19 22 Ambulatory Chronic anal fissure [facility] [employer] 05/29/20 21 Care Team Organization Name Specialty Phone Email Start Date End Da te [place] [employer] [facility] 03/28/2024 [facility] 02/24/2024 [employer] 09/22/2023 12/20/2023 [facility] 05/25/2023 3 [facility] 04/07/2023 [facility] CCDA 023 [facility] ADT 02/28/20 23 [place] [facility] Kavita [facility] Primary [facility] 06/04/2022 [facility]ita [facility] Primary [facility] 2021 [place] [facility] 05/29/2021 06/04/20 22 [facility] Primary Care 202003/01/2022
--- OUTSIDE RECORDS SUMMARY | 2024-11-04 14:08 | XMS_ITS | Encounter Summary ---
Author Organization [facility] Address [address] [place] [address] Care Team Providers Care Is Architect Name Role Phone Kavita Farias MD Primary Care Provider [phone] Padmini Mariee MD Unavailable [phone] Petty Tavarez MD Unavailable [phone] Yvonne Estrella MD Unavailable [phone] Darlene Rivera Unavailable [phone] Petty Tavarez MD Unavailable [phone] Nehal Snowden PA-C Unavailable [phone] John Clark MD Unavailable [phone] Petty Tavarez MD Unavailable [phone] Encounter Details Date Type Department Care Team (Late st Contact Info) Description 05/02/2021 Scanned Document [facility] [place] [address] [place] [id number] Sita Diane PA [address] [place] [address] Social History Tobacco Use Types Packs/Day Years [...] EDT Appointment [facility] Department of Ophthalmology [address] [address] 05/16/2025 1:15 PM EDT Appointment [facility] Department of Ophthalmology [address] [address] Arvin García MD [address] [place] [address] documented as of this encounter Visit Diagnoses Not on filedocumented in this encounter Care Teams Is Architect Relationship Specialty Start Date End Date Kavita Farias MD [address] [place] [address] PCP - General 06/23/13 Nehal Snowden, PA-C [address] [place] [address] PCP - [employer] Medicare Attributed 10/18/22 01/16/23 Padmini Mariee MD [address] [place] [address] Referring Provider Rheumatology 03/02/18 Petty Tavarez MD [address] [place] [address] Surgery, Vascular 05/08/20 Yvonne Estrella MD [address] [place] [address] Physician Surgery, Colorectal 05/16/20 Darlene Rivera PA [address] [place] [address] 05/16/20 Petty Tavarez MD [address] [place] [address] Surgery, Vascular 05/16/20 05/28/21 John Clark MD [address] [place] [address] Resident Endocrinology 02/17/24 Petty Tavarez MD [address] [place] [address] Surgery, Vascular 02/17/24 documented as of this encounter
--- OUTSIDE RECORDS SUMMARY | 2024-11-04 14:08 | XMS_ITS | Data Portability ---
Author Organization [place] [facility] Address [address] [place] [address] Assessment No assessment recorded. Plan of Treatment Reminders Order Date Submit Date Provider Last Modified By Organization Details Last Modified Time Details Appointments None record ed. Lab None record ed. Referral None record ed. Procedures None record ed. Surgeries None record ed. Imaging None record ed. Medication Orders None record ed. Patient TargetsNo targets recorded. Patient Instructions Encounter Date Encounter Id Patient Instructions Last Modified By Organization Details Last Modified Time 06/03/2017 [id number] Aesthetics treatment bvictoria Not available 06/05/2017 11:38:01 Reason for Referral None Reported. Medical Equipment None Reported. Medications Name Sig Start Date Stop Date Status Note LastModified by Organization Details LastModified Time carvedilol 12.5 mg tablet active Not Available Not Available Not Available clonazepam 0.5 mg tablet active Not Available Not Available Not Available doxycycline hyclate 50 mg capsule active Not Available Not Availabl e Not Available levothyroxine 88 mcg tablet active Not Available Not Available N ot Available doxycycline monohydrate 50 mg capsule active Not Available Not Available Not Available codeine 10 mg-guaifenesin 100 mg/5 mL oral liquid active Not Available Not Av ailable Not Available hydrochlorothiazide 25 mg tablet active Not Available Not Available Not Available losartan 100 mg tablet active Not Available Not Available Not Available ezetimibe 10 mg tablet active Not Available Not Available Not Available Finacea 15 % topical gel active Not Available Not Available Not Available metoprolol tartrate 25 mg tablet active Not Available Not Available Not Available omega-3 acid ethyl esters 1 gram capsule active Not Available Not Available Not Available losartan 100 mg-hydrochlorothiaz vane 12.5 mg tablet active Not Available Not Mariaelena ilable Not Available amlodipine 5 mg-benazepril 40 mg capsule active Not Available Not Available Not Available Vitals None Recorded Social History None recorded. Functional Status None recorded. Mental Status None recorded. Family History Nothing Reported. Medical History No medical history recorded. Gynecological HistoryNo gynecological history recorded. Obstetrics History GPAL:G 0 P 0 0 0 0 Past Encounters Encounter ID Performer Location Encounter Start Date Encounter Closed Date Diagnosis/Indication Diagnosis SNOMED-CT Code Diagnosis ICD10 Code Diagnosis Note [id number] ZACH CERVANTES MD BIO[address] [place] [address] 06/03/2017 15:48:56 06/03/2017 18:12:07 Health Concerns Section Related Observation LastModified by Organization Detai ls LastModified Time None Recorded Concern Status LastModified by Organization Details LastModified Time None Recorded Advance Directives Directive None Recorded Payers Encounter Date Sequence Insurance Name Policy Number Policy Sen Covered Member ID Sen Member ID Guarantor Name 06/03/2017 1 *SELF PAY* Ju suleman E Regulo [facility] Episode No OBEpisode recorded.
== END 2024-11-04 15:28 | disposition home or self-care (01) ==
LOC: HO.HNS 13:45
PROVIDERS: Visit Provider Neurological Surgery
DX: M43.16 Spondylolisthesis, lumbar region (principal); M41.50 Other secondary scoliosis, site unspecified
CPT/HCPCS: 99204

== ENCOUNTER → 2024-11-04 14:57 | Outpatient (BNV) | payer MEDICARE, SELFPAY | PROVIDERS: Visit Provider Radiology Diagnostic Radiology | DX: M43.16 Spondylolisthesis, lumbar region (principal) | CPT/HCPCS: 72110 ==

== ENCOUNTER 2024-11-30 14:05 | Outpatient (AMB) | payer MEDICARE, SELFPAY ==
--- OUTSIDE RECORDS SUMMARY | 2024-11-30 14:08 | XMS_ITS ---
Author Organization [facility] Address [address] [place] [address] Care Team Providers Care Route Delivery Service Driver Name Role Phone DinoraKavita Primary Care Provider Padmini Mariee Unavailable [phone] Allergies Allergen (clinical drug ingredient) Drug/Non Drug [...] metoprolol Metoprolol Fatigue Drug Allergy Activ e REASON FOR VISIT 6 MTH, Possibly having back surgery in [facility]. with Dr. Arteaga Medications Medication SIG (Take, Route, Frequency, Duration) Notes Start Date End Date Status Furosemide 20 MG 1 tablet may repeat x 1 if significant edema for 90 days Active Doxycycline Hyclate 100 MG 1 capsule Ora lly every 2 days Active Ciclopirox 0.77 % 1 application Externally Twice a day Active Benzonatate 100 MG TAKE ONE (1) CAPSULE BY MOUTH THREE TIMES A DAY NEEDED for 15 Active hydrALAZINE HCl 10 MG TAKE ONE (1) TABLE T BY MOUTH THREE TIMES A DAY WITH FOOD for 30 Active Xarelto 10 MG 1 tablet with food Orally Once a day 05/07/2020 Active Vitamin E Active Benadryl Active Ammonium Lactate 12 % 1 application Externally Twice a day Active Betamethasone Dipropionate 0.05 % 1 application Externally Once a day Active Vitamin D3 125 MCG (5000 UT) 1 capsule O rally Once a day for 30 days Active Triamcinolone Acetonide 0.1 % 1 applicat ion Externally Two times a Week Active Systane 0.4-0.3 % as directed Ophthalmic Active Multivitamin - 1 tablet Orally Once a day for 30 day(s) Active Losartan Potassium-HCTZ 100-12.5 MG TAKE ONE (1) TABLET BY MOUTH DAILY for 90 Active Levothyroxine Sodium 112 MCG 1 tablet in the morning on an empty stomach Orally Once a day for 90 days Active Hydroxychloroquine Sulfate 2 00 MG TAKE ONE TABLET BY MOUTH TWICE DAILY Orally Twice a day for 90 days Active Social History Tobacco Use: Social History Observation Description Date Details (start date - stop date) Never Smoker NA - NA Sex Assigned At : Social History Observation Description Sex Assigned At Female Tobacco Use/Smoking Question Answer Notes Status: nonsmoker Section Notes: some 2nd hand smoke from mot her and [id number] Vital Signs Blood pressure systolic 144 mm Hg 11/09/19 25 Blood pressure diastolic 73 mm Hg 025 Heart Rate 79 /min 11/08/2024 Height 61.25 in 11/08/2024 Weight 171 lbs 11/08/2024 BMI 32.04 kg/m2 11/08/2024 Weight-kg 77.57 kg 11/08/2024 Encounters Encounter Location Date Provider Diagnosis - Rheumatology [address] [place] [phone] 11/08/2024 Padminiemery Mariee Sjogrens syndrome, with unspecified organ involvement M35.00 ; Spinal stenosis M48.00 and Hand arthritis M12.9 Assessments Encounter Date Diagnosis (ICD Code) Assessment Notes Treatment Notes Treatment Clinical Notes Section Notes 11/08/2024 Sjogrens syndrome, with unspecified organ involvement (ICD-10 - M35.00) -continue hydroxychloroquine, 200 and 400 mg on alternate days - follows Dr. García, she reports going in every 6 months 11/08/2024 Spinal stenosis (ICD-10 - M48.00) - she is seeing neurosurgery for her back to discuss possible surgery, she is off alendronate and calcium and PTH levels are much better since she had parathyroidectomy 11/08/2024 Hand arthritis (ICD-10 - M12.9) - continue topical diclofenac and Tylenol Arthritis Plan Of Treatment Treatment Notes Assessment Notes Sjogrens syndrome, with unsp ecified organ involvement -continue hydroxychloroquine, 200 and 400 mg on alternate days - follows Dr. García, she reports going in every 6 months Spinal stenosis - she is seeing neur osurgery for her back to discuss possible surgery, she is off alendronate and calcium and PTH levels are much better since she had parathyroidectomy Hand arthritis - continue topical d iclofenac and Tylenol Arthritis Future Test Test Name Order Date COMPLEMENT C3 03/19/2025 COMPLEMENT C4 03/19/2025 CBC WITH AUTO DIFF 03/19/2025 DNA DOUBLE STRANDED, IGG 03/19/2025 IMMUNOGLOBULIN PROFILE 03/19/2025 Next Appt Details Follow Up: 5 M, same day as endo, Reason: Provider Name:John Clark, 04/11/2025 01:00:00 PM, [address] [place] [address], [phone], Provider Name:Padmini Mariee , 04/11/2025 01:30:00 PM, [address] [place] [address], [phone], Progress Notes * IDALMIS HURTADODOB:1945 (79 yo F)Acc No.[id number]:11/08/2024 Progress Note Patient:IDALMIS GEORGES Provider:?Padmini Mariee MD :1945???Age:79 Y???Sex:Female D ate:11/08/2024 Address[address] Pcp:Kavita Farias Subjective: * Chief Complaints: * ???1. 6 MTH. 2. Possibly hav ing back surgery in [facility]. with Dr. Arteaga. * HPI: ???Screening:? #Rheum History #Sjogrens syndrome/OA of multiple sites - initial rheum visit- 02/10/18 - rheum (Dr. Smith) for osteoarthritis of hands/thumb bases;h/o back surgery s/p fusion of L5-S1 (1989). - Labs (02/10/18):SSA-pos-6.8, pos RF (28.9), AST-62/ALT-89 (h/o fatty liver), EMERY, SSB, HLA-B27, CCP, ESR, CRP, ferritin-wnl - lip biopsy:FS of 1;oral pred helped significantly with jtsHCQ - Labs from 06/11/19:AST-166, ALT-223 - Liver US in November 2018 showed diffuse mild fatty infiltration; seen GI, has had liver biopsy - lip biopsy:FS of 1;oral pred helped significantly with jts - MRI of l-spine (01/2015)-mild retrolisthesis L2-L3, s/p L5-S1 fusion, small broad based protrusion at L2-L3, broad based bulges at L1-L2 and L3-L4,fatty infiltration and atrophy of paraspinal muscles - Lumbar spine xray (02/12/2018): mod-severe disc deg at L2-3 with mild disc deg in remaining levels; mild OA seen in both hips. - Dr. Ying (pain management)? 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 Clark) Interval History: Idalmis, 79 yo female with above history is here for follow-up. She?is currently on hydroxychloroquine 200 mg daily, she occ. takes 2 when her hands hurt, advised to take 2 and 1 alternate days. She follows ophtho (Dr. García). She has a follow-up appt with neurosurgery to discuss possible surgical options for spine. * ROS:?General/Constitutional:?Chills?denies.?Fever?denies.?Weight change?denies.?ENT:?Dizziness?Denies.?Oral Ulcers?denies.?Sore throat?denies.?Respiratory:?Shortness of breath?denies.?Cough?denies.?Cardiovascular:?Chest pain ?denies.?Palpitations?denies.?Gastrointestinal:?Abdominal pain?denies.?Nausea?denies.?Vomiting?denies.?Musculoskeletal:?Head Trauma?denies.?Paralysis?denies.?Hx of arthritis?admits.?Painful joints?admits.?Muscle weakness?denies.?Skin:?Rash?denies.? * Medical History:?02-15-2020 p hlegmasia cerula dolens RLE after bilateral iliac vein stenting treated with catheter directed thrombolytic therapy with balloon angioplasty, 08-07-2022 covid and in July 2023, 07-09-15 MRI: acute L thalamic infarct, white matter ischemia changes, multiple old lacunar infarcts, liver biopsy: chronic hepatitis grade 2/stage 2 with mild fatty changes, 1995: granules due to mevacor (lipid meds increase LFTs--Drs. 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 small tear), flat feet with plantar fascitis (Dr. 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 R face shingles, allergies (Dr. Posadas), actinic keratoses (Dr. Glover), Edema, Mycoplasma pneumonia, varicosities LEs, External hemorrhoids with anterior anal fissure, eczema of scalp (Dr. Covington), lumbar MRI: DDD with DJD, L2-3 severe DDD & annular tear with min. retrolisthesis L2 on L3, L5-S1 post op changes due to fusion, fatty infiltration and atrophy of paraspinal muscles, sanjuana. lower lumbar spine (similar to prior studies), Insomnia, 5-19-2019? stable thyroid nodule; 03-08-2020: unchanged, recurring rectal fissures--may never heal entirely due to scar tissue (Dr. Estrella), 07-15-18 influenza, 07-08-2021 lumbar MRI: L3-4 spinal stenosis; 10-10-2024: Degenerative disc disease with degenerative joint disease at L2-3 -4-5, mild spinal stenosis at L3-4, mild left foraminal stenosis at L2 -3, mild impression of the anterior thecal sac at L1-3, convex right thoracolumbar scoliosis, 10-22-15 dexascan: normal (forearm -0.5, hip 0.0); 07-28-2019: osteopenia (spine 1.5, hip - 1.2); 10-16-2021 osteoporosis (hip -1.7, forearm -2.8); 02-12-2023 osteoporosis unchanged (spine -1.7, hip -2.8); 08-31-2023: osteopenia (spine 1.0, hip -1.9), 03-09-2020 US of breasts: ok (declines mammograms), anal stenosis with anal fissure (Dr. Estrella), 01-19-14 colonoscopy: 2 tubular adenomas (Dr. Estrella--3 years, but does not want to do while patient is on xarelto), Declines immunizations, 10-08-2023 discussed Advance Directives and handout given, has living will, health agent is daughter Audrey Parson, 09-22-2024 nuclear liver/spleen scan: normal. * Surgical History:?fem/pop 1s t vessel atherectomy RLE (Dr. Dove) 02/17/2020, bilateral iliac stenting Jun 2019, lip biopsy Sjogren's syndrome 2018, OD cataract 03/02/14, OS cataract (Dr. García) 02/16/14, tranabdominal sacrocolpopexy, lysis of adhesions, L salpingo-oopherectomy, post. coloporrhaphy, repair of enterocele (Drs. Rodríguez and Letty) 12/22/03, L4-5 fusion 1989, partial hysterectomy for fibroids (ovaries intact) and vaginal prolapse 1979, liver biopsies in 1996 & 1986 & 2009 , Mohs surgery squamous cell carcinoma of L pretibial region (Dr. Palafox) 03/12/2024, L inferior parathyroidectomy (Dr. Messer) 03/22/2024. * Hospitalization/Major Diagno stic Procedure:?[facility] ED: syncope, ?vasovagal with dehydration, EKG RBBB with increased QT interval 09-02-2021, [facility]: phlegmasia cerulea dolens of RLE with EK OS cath and post procedure bleed on xarelto 02-14->02-21-2020, [facility] Observation: collapse due to dehydration, BUN/Cr = 9/0.46, glucose 122, ALT 123, AST 89, head CT with old infarcts 10-07-16, [facility]: CVA with R hemiparesis 07-08->07-09-15, surgeries and childbirth . * Family History:?Father: dece ased 68 yrs, Cause of : , Diabetes Type 2, CVA, cancer (stomach?), drank and smoked too much, diagnosed with Diabetes, Cancer, Stroke.?Spouse: , Cause of : lymphoma.?Mother: 92 yrs, Cause of : bladder cancer, diagnosed with Hypertension, Cancer.?Paternal Grand Father: .?Paternal Grand Mother: 84 yrs.?Maternal Grand Father: 95 yrs, Cause of : fell and broke his hip.?Maternal Grand Mother: 86 yrs, Cause of : lung cancer (non smoker), diagnosed with Cancer.?1 brother(s) - healthy. 1 son(s) , 1 daughter(s) - healthy. .? son with hyperlipidemia, 2022. * Social History:?Tobacco Use:?Tobacco Use/Smoking?Status:?nonsmoker ???some 2nd hand smoke from mother and umpolq-ng-tlr. * Medications:?Taking Ammonium Lactate 12 % Lotion 1 application Externally Twice a day , Taking Benadryl , Taking Benzonatate 100 MG Capsule TAKE ONE (1) CAPSULE BY MOUTH THREE TIMES A DAY NEEDED , Taking Betamethasone Dipropionate 0.05 % Cream 1 application Externally Once a day , Taking Ciclopirox 0.77 % Gel 1 application Externally Twice a day , Taking Doxycycline Hyclate 100 MG Capsule 1 capsule Orally every 2 days , Taking Furosemide 20 MG Tablet 1 tablet may repeat x 1 if significant edema , Taking hydrALAZINE HCl 10 MG Tablet TAKE ONE (1) TABLET BY MOUTH THREE TIMES A DAY WITH FOOD , Taking Hydroxychloroquine Sulfate 200 MG Tablet TAKE ONE TABLET BY MOUTH TWICE DAILY Orally Twice a day , Taking Levothyroxine Sodium 112 MCG Tablet 1 tablet in the morning on an empty stomach Orally Once a day , Taking Losartan Potassium-HCTZ 100-12.5 MG Tablet TAKE ONE (1) TABLET BY MOUTH DAILY , Taking Multivitamin(Multiple Vitamin) - Tablet 1 tablet Orally Once a day , Taking Systane(Polyethyl Glycol-Propyl Glycol) 0.4-0.3 % Solution as directed Ophthalmic , Taking Triamcinolone Acetonide 0.1 % Cream 1 application Externally Two times a Week , Taking Vitamin D3 125 MCG (5000 UT) Capsule 1 capsule Orally Once a day , Taking Vitamin E , Taking Xarelto(Rivaroxaban) 10 MG Tablet 1 tablet with food Orally Once a day , Medication List reviewed and reconciled with the patient * Allergies:?Mevacor: high LFT s, Crestor: HIgh LFTs, Metoprolol: Fatigue, Carvedilol: did not feel calm, Ketoconazole: sever swelling, Doxycycline (Rosacea): may be causing slate herrera discoloration. * Implants:? Objective: * Vitals:?BP:144/73, HR: 79, H t: 61.25, Wt: 171, BMI:32.04, BW: 77.57. * Examination: ???General Examination: ?GENERAL APPEARANCE:?AAOx3, NAD, pleasant.?EYES:?PERRL, EOMI, anicteric sclera.?NECK:?neck supple, no cervical lymphadenopathy, full range of motion.?SKIN:?no rashes, no ulcers.?MUSCULOSKELETAL:?Hands: no synovitis, no MCP compression tenderness.? Assessment: * Assessment: 1.?Sjogrens syndrome, with u nspecified organ involvement - M35.00 (Primary)???2.?Spinal stenosis - M48.00???3.?Hand arthritis - M12.9??? Plan: * Treatment: 2.?Spinal stenosis? Notes: - she is seeing neurosurgery for her back to discuss possible surgery, she is off alendronate and calcium and PTH levels are much better since she had parathyroidectomy?? 3.?Hand arthritis? Notes: - continue topical diclofenac and Tylenol Arthritis?? * Follow Up:?5 M, same day as endo * Billing Information: * Visit Code:? 17860 Office Outpt Est 30-39. * Procedure Codes:? * Sign off status: Completed true * Provider:?Padmini Mariee MD Date:?11/08 Generated for Veliai ng/Tanner/eTransmitting on:?11/30/2024 02:08 PM EDT History and Physical Notes * HPI (History of Present Illness) Category Sub-Category Detail Notes Category Not es Screening #Rheum History #Sjogrens syndrome/OA of multiple sites - initial rheum visit- 02/10/18 - rheum (Dr. Smith) for osteoarthritis of hands/thumb bases;h/o back surgery s/p fusion of L5-S1 (1989). - Labs (02/10/18):SSA-pos-6.8, pos RF (28.9), AST-62/ALT-89 (h/o fatty liver), EMERY, SSB, HLA-B27, CCP, ESR, CRP, ferritin-wnl - lip biopsy:FS of 1;oral pred helped significantly with jts-->HCQ - Labs from 06/11/19:AST-166, ALT-223 - Liver US in November 2018 showed diffuse mild fatty infiltration; seen GI, has had liver biopsy - lip biopsy:FS of 1;oral pred helped significantly with jts - MRI of l-spine (01/2015)-mild retrolisthesis L2-L3, s/p L5-S1 fusion, small broad based protrusion at L2-L3, broad based bulges at L1-L2 and L3-L4,fatty infiltration and atrophy of paraspinal muscles - Lumbar spine xray (02/12/2018): mod-severe disc deg at L2-3 with mild disc deg in remaining levels; mild OA seen in both hips. - Dr. 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 Clark) Interval History: Idalmis, 79 yo female with above history is here for follow-up. She is currently on hydroxychloroquine 200 mg daily, she occ. takes 2 when her hands hurt, advised to take 2 and 1 alternate days. She follows ophtho (Dr. García). She has a follow-up appt with neurosurgery to discuss possible surgical options for spine. Examination Category Sub-Category Detail Notes Category Not es General Examination GENERAL APPEARANCE: AAOx3, NAD, pl easant EYES: PERRL, EOMI, anicter ic sclera HEART: LUNGS: NEUROLOGIC: SKIN: no rashes, no ulcers BACK: MUSCULOSKELETAL: Hands: no synovitis, no MCP compression tenderness HEENT GI: NECK: neck supple, no cerv ical lymphadenopathy, full range of motion
--- OUTSIDE RECORDS SUMMARY | 2024-11-30 14:08 | XMS_ITS | Encounter Summary ---
Author Organization [facility] Address [address] [place] [address] Care Team Providers Care [employer] Spray Unit Adjuster Name Role Phone Kavita Farias MD Primary Care Provider [phone] Padmini Mariee MD Unavailable [phone] Petty Tavarez MD Unavailable [phone] Yvonne Estrella MD Unavailable [phone] Darlene Rivera Unavailable [phone] Petty Tavarez MD Unavailable Nehal Snowden PA-C Unavailable [phone] John Clark MD Unavailable [phone] Petty Tavarez MD Unavailable [phone] Encounter Details Date Type Department Care Team (Late st Contact Info) Description 04/18/2020 Telephone [facility] [address] [facility] [address] [place], [place] [phone] Yvonne Estrella MD [address] [place] [address] Social History Tobacco Use Types Packs/Day Years [...] EDT Appointment [facility] Department of Ophthalmology [address] [address] 05/16/2025 1:15 PM EDT Appointment [facility] Department of Ophthalmology [address] [phone] Arvin García MD [address] [place] [address] documented as of this encounter Visit Diagnoses Not on filedocumented in this encounter Care Teams [employer] Spray Unit Adjuster Relationship Specialty Start Date End Date Kavita Farias MD [address] [place] [address] PCP - General 06/23/13 Nehal Snowden, MARIOC [address] [place] [address] PCP - [employer] Medicare Attributed 10/18/22 01/16/23 Padmini Mariee MD [address] [place] [address] Referring Provider Rheumatology 03/02/18 Petty Tavarez MD [address] [place] [address] Surgery, Vascular 05/08/20 Yvonne Estrella MD [address] [place] [address] Physician Surgery, Colorectal 05/16/20 Darlene Rivera PA [address] [place] [address] 05/16/20 Petty Tavarez MD [address] [place], [place] [id number] Surgery, Vascular 05/16/20 05/28/21 John Clark MD [address] [place] [address] Resident Endocrinology 02/17/24 Petty Tavarez MD [address] [place] [address] Surgery, Vascular 02/17/24 documented as of this encounter
--- OUTSIDE RECORDS SUMMARY | 2024-11-30 14:08 | XMS_ITS | Clinical Summary ---
Author Organization [facility] Address [address] [place] [address] Care Team Providers Care Leadership Development Instructor Name Role Phone Kavita Farias MD Primary Care Provider [phone] Padmini Mariee MD Unavailable [phone] Petty Tavarez MD Unavailable [phone] Yvonne Estrella MD Unavailable [phone] Darlene Rivera Unavailable [phone] John Clark MD Unavailable [phone] Petty Tavarez MD Unavailable [phone] Allergies Active Allergy Reactions Criticality Noted [...] (02/15/2020): Added automatically from request for surgery [id number] 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 [...] Description 10/05/2024 3:30 PM EDT Office Visit [facility] [address] [place] [address] Sita Diane, PA Personal history of venous thrombosis and embolism (Primary Dx) 10/05/2024 2:30 PM EDT Ancillary Procedure [facility] [place] [address] [facility] [address] [place] [address] Sita Diane PA 10/05/2024 Travel 09/05/2024 Orders Only [facility] [place] [address] [facility] [address] [place] [address] Nehal Snowden PA-C 09/05/2024 Refill [facility] [place] [address] [facility] [address] [place] [address] Sita Diane PA Personal history of venous thrombosis and embolism 09/04/2024 Refill [facility] [place] [address] [facility] [address] [place] [address] Sita Diane PA Personal history of venous thrombosis and embolism from Last 3 Months Family History Medical [...] EDT Appointment [facility] Department of Ophthalmology [address] [place] [address] 05/16/2025 1:15 PM EDT Appointment [facility] Department of Ophthalmology [address] [place] [address] Arvin García [place] [address] [place] [address], [place] [address] Health Maintenance Due Date Last Done Comments DTaP/Tdap/Td Vaccines (1 - Tdap) 1962 Pneumococcal Vaccines 50+ (1 of 2 - PCV) 1962 Zoster (Shingles) Vaccine (1 of 2) 1962 DXA Bone Density (Females,Ages 65 and older) 2008 RSV Vaccine 60 years and older and Patients (1 - 1-dose 75+ series) 2018 COVID-19 Vaccine ( season) 2024 05/30/2022, 01/23/2022, 06/03/2021, Additional history exists Influenza Vaccine 02/17/2025 04/07/2023, , 05/13/2021, Additional history exists Hepatitis B Vaccines Aged [...] was not included. ?? Department: [facility]) Patient: [id number] (IDALMIS RAJPUT) ?? Patient Location: [facility] CPT Code: 29515 ICD-9: ?? Referring Physician: Sita Pinon Study performed in the reversed Trendelenburg position [...] ?? Electronically Signed by: Nimesh Griffiths MD, MARCELLUS on 2024-10-05 05:49:45 PM End of Report Procedure Note Nimesh Griffiths MD - 10/05/2024 Department: [facility]) Patient: [id number] (IDALMIS RAJPUT) Patient Location: [facility] CPT Code: 15584 ICD-9: Referring Physician: Sita Pinon Study performed in the reversed Trendelenburg position [...] N/A Electronically Signed by: Nimesh Griffiths MD, MARCELLUS on 9683-07-0535:49:45 PM End of Report us [facility] ORDERABLES Fin al Result from Last 3 Months Insurance AETNA MGD MEDICARE AETNA MGD MEDICARE Advance Directives Documents on File Type Date Recorded Patient Air Conditioning Equipment Mechanic Expl anation Power of Salvage Determiner-Scan * Full Code (Latest Code Status on File) Date Activated Date Inactivated Comments 03/22/2024 6:08 AM * Full Code Date Activated Date Inactivated Comments 09/02/2021 6:29 AM 03/22/2024 5:53 AM * Full Code Date Activated Date Inactivated Comments 02/15/2020 6:10 PM 09/02/2021 12:47 AM Care Teams Leadership Development Instructor Relationship Specialty Start Date End Date Kavita Farias MD [address] [place] [address] PCP - General 06/23/13 Padmini Mariee MD [address] [place] [address] Referring Provider Rheumatology 03/02/18 Petty Tavarez MD [address] [place] [address] Surgery, Vascular 05/08/20 Yvonne Estrella MD [address] [place], [place] [address] Physician Surgery, Colorectal 05/16/20 Darlene Rivera PA [address] [place] [address] 05/16/20 John Clark MD [address] [place] [address] Resident Endocrinology 02/17/24 Petty Tavarez MD [address] [place] [address] Surgery, Vascular 02/17/24
--- OUTSIDE RECORDS SUMMARY | 2024-11-30 14:08 | XMS_ITS | Encounter Summary ---
Author Organization [facility] Address [address] [place] [address] Care Team Providers Care Bond Trader Name Role Phone Kavita Farias MD Primary Care Provider [phone] Padmini Mariee MD Unavailable [phone] Petty Tavarez MD Unavailable [phone] Yvonne Estrella MD Unavailable [phone] Darlene Rivera Unavailable [phone] Petty Tavarez MD Unavailable [phone] Nehal Snowden PA-C Unavailable [phone] John Clark MD Unavailable [phone] Petty Tavarez MD Unavailable [phone] Reason for Visit * Reason Comments Medication Refill Encounter Details Date Type Department Care Team (Late st Contact Info) Description 08/09/2020 Refill [place] [facility] [address] [facility] [address] [place] [address] Yvonne Estrella MD [address] [place] [address] Chronic idiopathic constipation Social History Tobacco Use [...] Info) Description 05/16/2025 1:15 PM EDT Appointment [facility] Department of Ophthalmology [place] [address] [place] [address] 05/16/2025 1:15 PM EDT Appointment [facility] Department of Ophthalmology [place] [address] [place] [address] Arvin García [place] [address] [place] [address] documented as of this encounter Visit Diagnoses Diagnosis Chronic idiopathic constipation Unspecified constipation documented in this encounter Care Teams Bond Trader Relationship Specialty Start Date End Date Kavita Farias MD [address] [place] [address] PCP - General 06/23/13 Nehal Snowden, PA-C [address] [address] PCP - Aet[employer] Medicare Attributed 10/18/22 01/16/23 Padmini Mariee MD [address] [place] [address] Referring Provider Rheumatology 03/02/18 Petty Tavarez MD [address] [address] Surgery, Vascular 05/08/20 Yvonne Estrella MD [address] [place] [address] Physician Surgery, Colorectal 05/16/20 Darlene Rivera PA [address] [place] [address] 05/16/20 Petty Tavarez MD [address] [place] [address] Surgery, Vascular 05/16/20 05/28/21 John Clark MD [address] [place] [address] Resident Endocrinology 02/17/24 Petty Tavarez MD [address] [place] [address] Surgery, Vascular 02/17/24 documented as of this encounter
--- OUTSIDE RECORDS SUMMARY | 2024-11-30 14:09 | XMS_ITS | Clinical Summary ---
Author Organization [facility] Address [address] [place] [address] Care Team Providers Care Permastone Applicator Name Role Phone Unavailable Primary Care Provider [...]
--- OUTSIDE RECORDS SUMMARY | 2024-11-30 14:09 | XMS_ITS | Clinical Summary ---
Author Organization [facility] Address [address] [place] [address] Care Team Providers Care Garment Form Assembler Name Role Phone Kavita Farias MD Primary Care Provider [phone] Allergies Active Allergy Reactions Criticality Noted Date [...] MEDICARE PPO [facility] Care Teams Garment Form Assembler Relationship Specialty Start Date End Date Kavita Farias MD [address] [place] [address] PCP - General Internal Medicine 10/18/19
--- OUTSIDE RECORDS SUMMARY | 2024-11-30 14:09 | XMS_ITS | Encounter Summary ---
Author Organization [facility] Address [address] [place] [address] Care Team Providers Care Product Manufacturing Professional Name Role Phone Kavita Farias MD Primary Care Provider [phone] Padmini Mariee MD Unavailable [phone] Petty Tavarez MD Unavailable [phone] Yvonne Estrella MD Unavailable [phone] Darlene Rivera Unavailable [phone] Nehal Snowden PA-C Unavailable [phone] John Clark MD Unavailable [phone] Petty Tavarez MD Unavailable [phone] Reason for Visit * Reason Comments Medication Refill Encounter Details Date Type Department Care Team (Late st Contact Info) Description 08/24/2021 Refill [place] [facility] [address] [facility] [address] [place], [place] [phone] Yvonne Estrella MD [address] [place] [address] Chronic idiopathic constipation Social History Tobacco Use [...] Info) Description 05/16/2025 1:15 PM EDT Appointment [facility] Department of Ophthalmology [address] [address] 05/16/2025 1:15 PM EDT Appointment [facility] Department of Ophthalmology [address] [address] Arvin García MD [address] [place] [address] documented as of this encounter Visit Diagnoses Diagnosis Chronic idiopathic constipation Unspecified constipation documented in this encounter Care Teams Product Manufacturing Professional Relationship Specialty Start Date End Date Kavita Farias MD [address] [place] [address] PCP - General 06/23/13 Nehal Snowden, PA-C [address] [place], [place] [address] PCP - Aetna Medicare Attributed 10/18/22 01/16/23 Padmini Mariee MD [address] [place] [address] Referring Provider Rheumatology 03/02/18 Petty Tavarez MD [address] [place] [address] Surgery, Vascular 05/08/20 Yvonne Estrella MD [address] [place] [address] Physician Surgery, Colorectal 05/16/20 Darlene Rivera PA [address] [place] [address] 05/16/20 John Clark MD [address] [place] [address] Resident Endocrinology 02/17/24 Petty Tavarez MD [address] [place] [address] Surgery, Vascular 02/17/24 documented as of this encounter
--- OUTSIDE RECORDS SUMMARY | 2024-11-30 14:09 | XMS_ITS | Encounter Summary ---
Author Organization [facility] Address [address] [place] [address] Care Team Providers Care Plush Dresser Name Role Phone Kavita Farias MD Primary Care Provider [phone] Padmini Mariee MD Unavailable [phone] Petty Tavarez MD Unavailable [phone] Yvonne Estrella MD Unavailable [phone] Darlene Rivera Unavailable [phone] Nehal Snowden PA-C Unavailable [phone] John Clark MD Unavailable [phone] Petty Tavarez MD Unavailable [phone] Reason for Visit * Reason Comments Medication Refill Encounter Details Date Type Department Care Team (Late st Contact Info) Description 10/02/2021 Refill [place] [facility] [address] [facility] [address] [place], [place] [phone] Yvonne Estrella MD [address] [place] [address] Social History Tobacco Use Types Packs/Day Years [...] Upcoming Encounters Date Type Department Care Team ([facility] st Contact Info) Description 05/16/2025 1:15 PM EDT Appointment [facility] Department of Ophthalmology [address] [address] 05/16/2025 1:15 PM EDT Appointment [facility] Department of Ophthalmology [address] [address] Arvin García MD [address] [place] [address] documented as of this encounter Visit Diagnoses Not on filedocumented in this encounter Care Teams Plush Dresser Relationship Specialty Start Date End Date Kavita Farias MD [address] [place] [address] PCP - General 06/23/13 Nehal Snowden, PA-C [address] [place] [address] PCP - A[employer] Medicare Attributed 10/18/22 01/16/23 Padmini Mariee MD [address] [place] [address] Referring Provider Rheumatology 03/02/18 Petty Tavarez MD [address] [place] [address] Surgery, Vascular 05/08/20 Yvonne Estrella MD [address] [place] [address] Physician Surgery, Colorectal 05/16/20 Darlene Rivera PA [address] [place] [address] 05/16/20 John Clark MD [address] [place] [address] Resident Endocrinology 02/17/24 Petty Tavarez MD [address] [place] [address] Surgery, Vascular 02/17/24 documented as of this encounter
--- OUTSIDE RECORDS SUMMARY | 2024-11-30 14:09 | XMS_ITS ---
Author Organization [facility] Address [address] [place] [address] Care Team Providers Care Seafood Packer Name Role Phone Kavita Farias Primary Care Provider [phone] Padmini Mariee Unavailable [phone] REASON FOR VISIT concerns Social History Sex Assigned At : Social History Observation Description Sex Assigned At Female Encounters Encounter Location Date Provider Diagnosis [facility] [address] [facility] [address] [place], [place] [id number] 11/02/2024 Kavita Farias Plan Of Treatment Next Appt Details Provider Name:John Clark, 04/11/2025 01:00:00 PM, [address] [place] [address], [phone], Provider Name:Padmini Mariee , 04/11/2025 01:30:00 PM, [address] [place] [address], [phone], Progress Notes * TRICIA HURTADODOB:1945 (79 yo F)Acc No.[id number]:11/02/2024 Patient:?TRICIA HURTADO :1945???Age:79 Y???Sex:Female Address:[address], [address], [place] [address] * true * Date:? Generated for Claudette ladd/Tanner/eTransmitting on:?11/30/2024 02:09 PM EDT
--- OUTSIDE RECORDS SUMMARY | 2024-11-30 14:09 | XMS_ITS | Encounter Summary ---
Author Organization [facility] Address [address] [place] [address] Care Team Providers Care Stripping Shovel Operator Name Role Phone Kavita Farias MD Primary Care Provider [phone] Padmini Mariee MD Unavailable [phone] Petty Tavarez MD Unavailable [phone] Yvonne Estrella MD Unavailable [phone] Darlene Rivera Unavailable [phone] Petty Tavarez MD Unavailable [phone] Nehal Snowden PA-C Unavailable [phone] John Clark MD Unavailable [phone] Petty Tavarez MD Unavailable [phone] Encounter Details Date Type Department Care Team (Late st Contact Info) Description 03/21/2021 Scanned Document [facility] Vascular & Endovascular Surgery [place] [address] [facility] [address] [place] [address] Sita Diane PA [address] [place] [address] [place] [address] Social History Tobacco Use Types Packs/Day Years [...] EDT Appointment [facility] Department of Ophthalmology [address] [address] 05/16/2025 1:15 PM EDT Appointment [facility] Department of Ophthalmology [address] [address] Arvin García MD [address] [place] [address] documented as of this encounter Visit Diagnoses Not on filedocumented in this encounter Care Teams Stripping Shovel Operator Relationship Specialty Start Date End Date Kavita Farias MD [address] [place] [address] PCP - General 06/23/13 Nehal Snowden, PA-C [address] [place] [address] PCP - Aetna Medicare Attributed 10/18/22 01/16/23 Padmini Mariee MD [address] [place] [address] Referring Provider Rheumatology 03/02/18 Petyt Tavarez MD [address] [place] [address] Surgery, Vascular 05/08/20 Yvonne Estrella MD [address] [place] [address] Physician Surgery, Colorectal 05/16/20 Darlene Rivera PA [address] [place] [address] 05/16/20 Petty Tavarez MD [address] [place] [address] Surgery, Vascular 05/16/20 05/28/21 John Clark MD [address] [place] [address] Resident Endocrinology 02/17/24 Petty Tavarez MD [address] [place] [address] Surgery, Vascular 02/17/24 documented as of this encounter
--- OUTSIDE RECORDS SUMMARY | 2024-11-30 14:09 | XMS_ITS | Encounter Summary ---
Author Organization [facility] Address [address] [place] [address] Care Team Providers Care Population Geneticist Name Role Phone Kavita Farias MD Primary Care Provider [phone] Padmini Mariee MD Unavailable [phone] Petty Tavarez MD Unavailable [phone] Yvonne Estrella MD Unavailable [phone] Darlene Rivera Unavailable [phone] Petty Tavarez MD Unavailable [phone] Nehal Snowden PA-C Unavailable [phone] John Clark MD Unavailable [phone] Petty Tavarez MD Unavailable Encounter Details Date Type Department Care Team (Late st Contact Info) Description 05/02/2021 Scanned Document [facility] Vascular & Endovascular Surgery [place] [address] [facility] [address] [place] [address] Sita Diane PA [address] [facility] [address] [place] [address] [place] [address] Social History Tobacco Use Types Packs/Day Years [...] EDT Appointment [facility] Department of Ophthalmology [address] [address] 05/16/2025 1:15 PM EDT Appointment [facility] Department of Ophthalmology [address] [address] Arvin García MD [address] [place] [address] documented as of this encounter Visit Diagnoses Not on filedocumented in this encounter Care Teams Population Geneticist Relationship Specialty Start Date End Date Kavita Farias MD [address] [place] [address] PCP - General 06/23/13 Nehal Snowden, PA-C [address] [place] [address] PCP - Aetna Medicare Attributed 10/18/22 01/16/23 Padmini Mariee MD [address] [place] [address] Referring Provider Rheumatology 03/02/18 Petty Tavarez MD [address] [place] [address] Surgery, Vascular 05/08/20 Yvonne Estrella MD [address] [place] [address] Physician Surgery, Colorectal 05/16/20 Darlene Rivera PA [address] [place] [address] 05/16/20 Petty Tavarez MD [address] [place] [address] Surgery, Vascular 05/16/20 05/28/21 John Clark MD [address] [place] [address] Resident Endocrinology 02/17/24 Petty Tavarez MD [address] [place] [address] Surgery, Vascular 02/17/24 documented as of this encounter
--- OUTSIDE RECORDS SUMMARY | 2024-11-30 14:09 | XMS_ITS | Encounter Summary ---
Author Organization [facility] Address [address] [place] [address] Care Team Providers Care Director Of State Name Role Phone Kavita Farias MD Primary Care Provider [phone] Padmini Mariee MD Unavailable [phone] Petty Tavarez MD Unavailable [phone] Yvonne Estrella MD Unavailable [phone] Darlene Rivera Unavailable [phone] Petty Tavarez MD Unavailable [phone] Nehal Snowden PA-C Unavailable [phone] John Clark MD Unavailable [phone] Petty Tavarez MD Unavailable [phone] Encounter Details Date Type Department Care Team (Late st Contact Info) Description 01/31/2021 Scanned Document [facility] Vascular & Endovascular Surgery [place] [address] [facility] [address] [place] [address] Sita Diane PA [address] [facility] [address] [place] [address] [place] [address] Social History Tobacco Use Types Packs/Day Years [...] Info) Description 05/16/2025 1:15 PM EDT Appointment [facility] Department of Ophthalmology [address] [address] 05/16/2025 1:15 PM EDT Appointment [facility] Department of Ophthalmology [address] [address] Arvin García MD [address] [place] [address] documented as of this encounter Visit Diagnoses Not on filedocumented in this encounter Care Teams Director Of State Relationship Specialty Start Date End Date Kavita Farias MD [address] [place] [address] PCP - General 06/23/13 Nehal Snowden PA-C [address] [place] [address] PCP - Aetna Medicare Attributed 10/18/22 01/16/23 Padmini Mariee MD [address] [place] [address] Referring Provider Rheumatology 03/02/18 Petty Tavarez MD [address] [place] [address] Surgery, Vascular 05/08/20 Yvonne Estrella MD [address] [place] [address] Physician Surgery, Colorectal 05/16/20 Darlene Rivera PA [address] [place] [address] 05/16/20 Petty Tavarez MD [address] [place] [address] Surgery, Vascular 05/16/20 05/28/21 John Clark MD [address] [place] [address] Resident Endocrinology 02/17/24 Petty Tavarez MD [address] [place] [address] Surgery, Vascular 02/17/24 documented as of this encounter
--- OUTSIDE RECORDS SUMMARY | 2024-11-30 14:09 | XMS_ITS | Encounter Summary ---
Author Organization [facility] Address [address] [place] [address] Care Team Providers Care Aircraft Restorer Name Role Phone Kavita Farias MD Primary Care Provider [phone] Padmini Mariee MD Unavailable Petty Tavarez MD Unavailable [phone] Yvonne Estrella MD Unavailable [phone] Darlene Rivera Unavailable [phone] Nehal Snowden PA-C Unavailable [phone] John Clark MD Unavailable [phone] Petty Tavarez MD Unavailable [phone] Reason for Visit * Reason Comments Medication Refill Encounter Details Date Type Department Care Team (Late st Contact Info) Description 06/03/2021 Refill [place] [facility] [address] [facility] [address] [place] [address] Yvonne Estrella MD 440 [place] [address] Chronic idiopathic constipation Social History Tobacco Use [...] Info) Description 05/16/2025 1:15 PM EDT Appointment [facility] Department of Ophthalmology [address] [address] 05/16/2025 1:15 PM EDT Appointment [facility] Department of Ophthalmology [address] [address] Arvin García MD [address] [place] [address] documented as of this encounter Visit Diagnoses Diagnosis Chronic idiopathic constipation Unspecified constipation documented in this encounter Care Teams Aircraft Restorer Relationship Specialty Start Date End Date Kavita Farias MD [address] [place] [address] PCP - General 06/23/13 Nehal Snowden PA-C [address] [place] [address] PCP - Aetna Medicare Attributed 10/18/22 01/16/23 Padmini Mariee MD [address] [place] [address] Referring Provider Rheumatology 03/02/18 Petty Tavarez MD [address] [place], [place] [address] (Work) Surgery, Vascular 05/08/20 Yvonne Estrella MD [address] [place] [address] Physician Surgery, Colorectal 05/16/20 Darlene Rivera PA 4 [place] [address] 05/16/20 John Clark MD [address] [place] [address] Resident Endocrinology 02/17/24 Petty Tavarez MD [address] [place] [address] Surgery, Vascular 02/17/24 documented as of this encounter
--- OUTSIDE RECORDS SUMMARY | 2024-11-30 14:09 | XMS_ITS | Encounter Summary ---
Author Organization [facility] Address [address] [place] [address] Care Team Providers Care Reservation Agent Name Role Phone Kavita Farias MD Primary Care Provider [phone] Padmini Mariee MD Unavailable [phone] Petty Tavarez MD Unavailable [phone] Yvonne Estrella MD Unavailable [phone] Darlene Rivera Unavailable [phone] Nehal Snowden PA-C Unavailable [phone] John Clark MD Unavailable [phone] Petty Tavarez MD Unavailable [phone] Encounter Details Date Type Department Care Team (Late st Contact Info) Description 09/17/2021 Scanned Document [facility] Vascular & Endovascular Surgery [address] [place] [phone] Sita Diane PA [address] [place] [address] [place] [address] Social History Tobacco Use Types Packs/Day Years [...] Info) Description 05/16/2025 1:15 PM EDT Appointment [facility] Department of Ophthalmology [address] [address] 05/16/2025 1:15 PM EDT Appointment [facility] Department of Ophthalmology [address] [address] Arvin García MD [address] [place] [address] documented as of this encounter Visit Diagnoses Not on filedocumented in this encounter Care Teams Reservation Agent Relationship Specialty Start Date End Date Kavita Farias MD [address] [place] [address] PCP - General 06/23/13 Nehal Snowden, PA-C [address] [place], [place] [id number] PCP - [employer] Medicare Attributed 10/18/22 01/16/23 Padmini Mariee MD [address] [place] [address] Referring Provider Rheumatology 03/02/18 Petty Tavarez MD [address] [place] [address] Surgery, Vascular 05/08/20 Yvonne Estrella MD [address] [place] [address] Physician Surgery, Colorectal 05/16/20 Darlene Rivera PA [address] [place] [address] 05/16/20 John Clark MD [address] [place] [address] Resident Endocrinology 02/17/24 Petty Tavarez MD [address] [place] [address] Surgery, Vascular 02/17/24 documented as of this encounter
--- OUTSIDE RECORDS SUMMARY | 2024-11-30 14:09 | XMS_ITS ---
Author Organization [facility] Address [address] [place] [address] Care Team Providers Care Receiver Name Role Phone Kavita Farias Primary Care Provider [phone] Padmini Mariee Unavailable [phone] Social History Sex Assigned At : Social History Observation Description Sex Assigned At Female Encounters Encounter Location Date Provider Diagnosis [facility] [address] [place], [place] [id number] 10/18/2024 Kavita Farias Plan Of Treatment Next Appt Details Provider Name:John Clark, 04/11/2025 01:00:00 PM, [address] [place] [address], [phone], Provider Name:Padmini Mariee , 04/11/2025 01:30:00 PM, [address] [place] [address], [phone], Progress Notes * TRICIA HURTADODOB:1945 (79 yo F)Acc No.[id number]:10/18/2024 Patient:?TRICIA HURTADO :1945???Age:79 Y???Sex:Female Address:[address], [place] [address] * true * Date:? Generated for Claudette ladd/Tanner/eTransmitting on:?11/30/2024 02:09 PM EDT
--- OUTSIDE RECORDS SUMMARY | 2024-11-30 14:09 | XMS_ITS | Encounter Summary ---
Author Organization [facility] Address [address] [place] [address] Care Team Providers Care Manufacturing Maintenance Technician Name Role Phone Kavita Farias MD Primary Care Provider [phone] Padmini Mariee MD Unavailable [phone] Petty Tavarez MD Unavailable [phone] Yvonne Estrella MD Unavailable [phone] Darlene Rivera Unavailable [phone] Nehal Snowdne PA-C Unavailable [phone] John Clark MD Unavailable [phone] Petty Tavarez MD Unavailable [phone] Reason for Visit * Reason Comments Medication Refill Encounter Details Date Type Department Care Team (Late st Contact Info) Description 09/17/2021 Refill [place] [facility] [address] [facility] [address] [place], [place] [phone] Yvonne Estrella MD [address] [place] [address] Social History Tobacco Use Types Packs/Day Years [...] Upcoming Encounters Date Type Department Care Team ([facility] st Contact Info) Description 05/16/2025 1:15 PM EDT Appointment [facility] Department of Ophthalmology [address] [address] 05/16/2025 1:15 PM EDT Appointment [facility] Department of Ophthalmology [address] [address] Arvin García MD [address] [place] [address] documented as of this encounter Visit Diagnoses Not on filedocumented in this encounter Care Teams Manufacturing Maintenance Technician Relationship Specialty Start Date End Date Kavita Farias MD [address] [place] [address] PCP - General 06/23/13 Nehal Snowden, PA-C [address] [place] [address] PCP - [employer] Medicare Attributed 10/18/22 01/16/23 Padmini Mariee MD [address] [place] [address] Referring Provider Rheumatology 03/02/18 Petty Tavarez MD [address] [place] [address] Surgery, Vascular 05/08/20 Yvonne Estrella MD [address] [place] [address] Physician Surgery, Colorectal 05/16/20 Darlene Rivera PA [address] [place] [address] 05/16/20 John Clark MD [address] [place] [address] Resident Endocrinology 02/17/24 Petty Tavarez MD [address] [place] [address] Surgery, Vascular 02/17/24 documented as of this encounter
--- OUTSIDE RECORDS SUMMARY | 2024-11-30 14:10 | XMS_ITS | Encounter Summary ---
Author Organization [facility] Address [address] [place] [address] Care Team Providers Care Corporate Quality Engineer Name Role Phone Kavita Farias MD Primary Care Provider [phone] Padmini Mariee MD Unavailable [phone] Petty Tavarez MD Unavailable [phone] Yvonne Estrella MD Unavailable [phone] Darlene Rivera Unavailable [phone] Nehal Snowden PA-C Unavailable [phone] John Clark MD Unavailable [phone] Petty Tavarez MD Unavailable [phone] Encounter Details Date Type Department Care Team (Late st Contact Info) Description 06/09/2022 Scanned Document [facility] Vascular & Endovascular Surgery [address] [place] [address] Vascular Surgery, Scan Social History Tobacco [...] Info) Description 05/16/2025 1:15 PM EDT Appointment [facility] Department of Ophthalmology [address] [address] 05/16/2025 1:15 PM EDT Appointment [facility] Department of Ophthalmology [address] [address] Arvin García MD [address] [place] [address] documented as of this encounter Visit Diagnoses Not on filedocumented in this encounter Care Teams Corporate Quality Engineer Relationship Specialty Start Date End Date Kavita Farias MD [address] [place] [address] PCP - General 06/23/13 Nehal Snowden, PA-C [address] [place], [place] [phone] PCP - [employer] Medicare Attributed 10/18/22 01/16/23 Padmini Mariee MD [address] [place] [address] Referring Provider Rheumatology 03/02/18 Petty Tavarez MD [address] [place] [address] Surgery, Vascular 05/08/20 Yvonne Estrella MD [address] [place] [address] Physician Surgery, Colorectal 05/16/20 Darlene Rivera PA [address] [place] [address] 05/16/20 John Clark MD [address] [place] [address] Resident Endocrinology 02/17/24 Petty Tavarez MD [address] [place] [address] Surgery, Vascular 02/17/24 documented as of this encounter
--- OUTSIDE RECORDS SUMMARY | 2024-11-30 14:10 | XMS_ITS | Clinical Summary ---
Author Organization [facility] Address [address] [place] [address] Care Team Providers Care Ct Technician Name Role Phone Brittany Curry Primary Care Provider [phone] Allergies Active Allergy Reactions Criticality Noted Date [...] Recently Relevant to Health Maintenance Care Teams Ct Technician Relationship Specialty Start Date End Date Brittany Curry [address] [place] [address] PCP - General 02/23/23
--- OUTSIDE RECORDS SUMMARY | 2024-11-30 14:10 | XMS_ITS | Encounter Summary ---
Author Organization [facility] Address [address] [place] [address] Care Team Providers Care Medical Dermatologist Name Role Phone Kavita Farias MD Primary Care Provider [phone] Padmini Mariee MD Unavailable [phone] Petty Tavarez MD Unavailable [phone] Yvonne Estrella MD Unavailable [phone] Darlene Rivera Unavailable [phone] John Clark MD Unavailable [phone] Petty Tavarez MD Unavailable [phone] Encounter Details Date Type Department Care Team (Late st Contact Info) Description 12/31/2023 Telephone [facility] Endocrine Surgery [address] [place] [address] Irina Messer MD [address] [facility] [address] [place] [address] Social History Tobacco Use Types Packs/Day Years [...] EDT Appointment [facility] Department of Ophthalmology [address] [address] 05/16/2025 1:15 PM EDT Appointment [facility] Department of Ophthalmology [address] [address] Arvin García MD [address] [place] [address] documented as of this encounter Visit Diagnoses Not on filedocumented in this encounter Care Teams Medical Dermatologist Relationship Specialty Start Date End Date Kavita Farias MD [address] [place] [address] PCP - General 06/23/13 Padmini Mariee MD [address] [place] [address] Referring Provider Rheumatology 03/02/18 Petty Tavarez MD [address] [address] Surgery, Vascular 05/08/20 Yvonne Estrella MD [address] [place] [address] Physician Surgery, Colorectal 05/16/20 Darlene Rivera PA 4 [place] [address] 05/16/20 John Clark MD [address] [place] [address] Resident Endocrinology 02/17/24 Petty Tavarez MD [address] [address] Surgery, Vascular 02/17/24 documented as of this encounter
--- OUTSIDE RECORDS SUMMARY | 2024-11-30 14:10 | XMS_ITS | Data Portability ---
Author Organization [place] [facility] Address [id number] [place] [address] Assessment No assessment recorded. Plan of Treatment [...] By Organization Details Last Modified Time 06/03/2017 [id number] Aesthetics treatment bvictoria Not available 06/05/2017 11:38:01 [...] SNOMED-CT Code Diagnosis ICD10 Code Diagnosis Note [id number] ZACH CERVANTES MD BIO1 [address] [place] [address] 06/03/2017 15:48:56 06/03/2017 18:12:07 Health Concerns Section Related Observation LastModified by Organization Detai ls LastModified Time None Recorded Concern Status LastModified by Organization Details LastModified Time None Recorded Advance Directives Directive None Recorded Payers Insurance Date Sequence Insurance Name Policy Number Policy Sen Covered Member ID Sen Member ID Guarantor Name 06/03/2017 1 *SELF PAY* Ju dith E Regulo OBGyn Episode No OBEpisode recorded.
--- OUTSIDE RECORDS SUMMARY | 2024-11-30 14:10 | XMS_ITS | Encounter Summary ---
Author Organization [facility] Address [address] [place] [address] Care Team Providers Care Hat Blocker Name Role Phone Kavita Farias MD Primary Care Provider [phone] Padmini Mariee MD Unavailable [phone] Petty Tavarez MD Unavailable [phone] Yvonne Estrella MD Unavailable [phone] Darlene Rivera Unavailable [phone] Nehal Snowden PA-C Unavailable [phone] John Clark MD Unavailable [phone] Petty Tavarez MD Unavailable [phone] Encounter Details Date Type Department Care Team (Late st Contact Info) Description 11/24/2022 Scanned Document [facility] Vascular & Endovascular Surgery [address] [place] [address] Vascular Surgery, Scan Social History Tobacco Use [...] EDT Appointment [facility] Department of Ophthalmology [address] [address] 05/16/2025 1:15 PM EDT Appointment [facility] Department of Ophthalmology [address] [address] Arvin García MD [address] [place] [address] documented as of this encounter Visit Diagnoses Not on filedocumented in this encounter Care Teams Hat Blocker Relationship Specialty Start Date End Date Kavita Farias MD [address] [place], [place] [id number] PCP - General 06/23/13 Nehal Snowden, PA-C [address] [place], [place] [id number] PCP - [employer] Medicare Attributed 10/18/22 01/16/23 Padmini Mariee MD [address] [place] [address] Referring Provider Rheumatology 03/02/18 Petty Tavarez MD [address] [place] [address] Surgery, Vascular 05/08/20 Yvonne Estrella MD [address] [place] [address] Physician Surgery, Colorectal 05/16/20 ZimDarlene dyson PA [address] [facility] [place] [address] 05/16/20 John Clark MD [address] [place] [address] Resident Endocrinology 02/17/24 Petty Tavarez MD [address] [place] [address] Surgery, Vascular 02/17/24 documented as of this encounter
--- OUTSIDE RECORDS SUMMARY | 2024-11-30 14:10 | XMS_ITS | Encounter Summary ---
Author Organization [facility] Address [address] [place] [address] Care Team Providers Care Natural Science Manager Name Role Phone Kavita Farias MD Primary Care Provider [phone] Padmini Mariee MD Unavailable [phone] Petty Tavarez MD Unavailable [phone] Yvonne Estrella MD Unavailable [phone] Darlene Rivera Unavailable [phone] John Clark MD Unavailable [phone] Petty Tavarez MD Unavailable [phone] Encounter Details Date Type Department Care Team (Late st Contact Info) Description 02/15/2024 Scanned Document [facility] Endocrine Surgery [address] [place] [address] Irina Messer MD [address] [facility] [address] [place] [address] Social History Tobacco Use Types Packs/Day Years [...] Upcoming Encounters Date Type Department Care Team ([facility] st Contact Info) Description 05/16/2025 1:15 PM EDT Appointment [facility] Department of Ophthalmology [address] [address] 05/16/2025 1:15 PM EDT Appointment [facility] Department of Ophthalmology [address] [address] Arvin García MD [address] [place] [address] documented as of this encounter Visit Diagnoses Not on filedocumented in this encounter Care Teams Natural Science Manager Relationship Specialty Start Date End Date Kavita Farias MD [address] [place] [address] PCP - General 06/23/13 Padmini Mariee MD [address] [place] [address] Referring Provider Rheumatology 03/02/18 Petty Tavarez MD [address] [address] Surgery, Vascular 05/08/20 Yvonne Estrella MD [address] [place] [address] Physician Surgery, Colorectal 05/16/20 Darlene Rivera PA 4 [place] [address] 05/16/20 John Clark MD [address] [place] [address] Resident Endocrinology 02/17/24 Petty Tavarez MD [address] [place] [address] Surgery, Vascular 02/17/24 documented as of this encounter
--- OUTSIDE RECORDS SUMMARY | 2024-11-30 14:10 | XMS_ITS | Encounter Summary ---
Author Organization [facility] Address [address] [place] [address] Care Team Providers Care Cook Helper Meat Name Role Phone Kavita Farias MD Primary Care Provider [phone] Padmini Mariee MD Unavailable [phone] Petty Tavarez MD Unavailable [phone] Yvonne Estrella MD Unavailable [phone] Darlene Rivera Unavailable [phone] Nehal Snowden PA-C Unavailable [phone] John Clark MD Unavailable [phone] Petty Tavarez MD Unavailable [phone] Reason for Visit * Reason Comments Medication Refill Encounter Details Date Type Department Care Team (Late st Contact Info) Description 08/20/2022 Refill [facility] Vascular & Endovascular Surgery [place] [address] [facility] [address] [place] [address] Sita Diane PA [address] [facility] [address] [facility] [address] [place] [address] [place] [address] Personal history of venous thrombosis and embolism [...] Appointment [facility] Department of Ophthalmology [address] [address] 05/16/2025 1:15 PM EDT Appointment [facility] Department of Ophthalmology [address] [address] Arvin García MD [address] [place] [address] documented as of this encounter Visit Diagnoses Diagnosis Personal history of venous thrombosis and embolism documented in this encounter Care Teams Cook Helper Meat Relationship Specialty Start Date End Date Kavita Farias MD [address] [place] [address] PCP - General 06/23/13 Nehal Snowden, PA-C [address] [place] [address] PCP - [employer] Medicare Attributed 10/18/22 01/16/23 Padmini Mariee MD [address] [place] [address] Referring Provider Rheumatology 03/02/18 Petty Tavarez MD [address] [place] [address] Surgery, Vascular 05/08/20 Yvonne Estrella MD [address] [place] [address] Physician Surgery, Colorectal 05/16/20 Darlene Rivera PA [address] [place] [address] 05/16/20 John Clark MD [address] [place] [address] Resident Endocrinology 02/17/24 Petty Tavarez MD [address] [place] [address] Surgery, Vascular 02/17/24 documented as of this encounter
--- NOTE | 2024-11-30 14:49 | A.SPINEOV_ITS ---
Intake Visit Reasons: f/up after CT Intake Note: Ms. Rajput is here today to F/u on the results of her CT. 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 We obtained a CT scan to assess bone quality. The CT scan is suspicious for osteopenia and possible osteoporosis. She understands that surgery has a risk of bone fractures were nonfusion with this bone quality. After long discussion we decided she will see her chopping machine operator to see if there is a anterior osteoporotic therapy that can and hands her bone quality. She will update me if this is possible. I was thinking of Prolia to increase her bone quality. I will see the patient in the near future to see if she becomes a surgical candidate. I spent 30 minutes in his consult answering questions and reviewing imaging. Thank you for allowing me take care of your patient. 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
== END 2024-11-30 15:46 | disposition home or self-care (01) ==
LOC: HO.HNS 14:06
PROVIDERS: Visit Provider Neurological Surgery
DX: M51.369 Other intervertebral disc degeneration, lumbar region without mention of lumbar back pain or lower extremity pain (principal); M41.50 Other secondary scoliosis, site unspecified
CPT/HCPCS: 99214

== ENCOUNTER → 2024-11-30 14:05 | Outpatient (BNVA) | payer MEDICARE, SELFPAY | PROVIDERS: Visit Provider Neurological Surgery | DX: M48.062 Spinal stenosis, lumbar region with neurogenic claudication (principal); M41.50 Other secondary scoliosis, site unspecified | CPT/HCPCS: 99212 ==